=== PATIENT | female | born 1960 | race African-American/Black ===

== ENCOUNTER 2017-04-04 21:26 | Emergency (ER) | payer BC ==
[~2017-04-04 21:26] MED LIST: ALBU.63PRN INH; ALLO300T2 PO; CALC0.5C6 PO; DRIS50002 PO; ECOT81TA2 PO; FOLI1TAB PO; FURO20 PO; GABA300C3 PO; HYDR200T3 PO; IMDU30TA PO; LOSA100T PO; METH2.5 PO; METO100T PO; NEUR600T PO; NOVONP2 SQ; NOVORP2 SQ; OMEP20TA PO; PROC90TA PO; VENTAER INH; ZOCO80TA PO
[2017-04-04 21:30] VITALS: BP 187/77; PULSE 105; RESP 20; TEMP 97.7; O2SAT 97
[2017-04-04] MEDS ORDERED: methylPREDNISolone SOD SUCC 125 MG/2 ML VIAL IVP ONE (22:30)
[2017-04-04] MEDS ORDERED: SODIUM CHLORIDE 0.9% FLUSH 10 ML FLUSH IVF PRN (22:30)
[2017-04-04] MEDS: RESP: ALBUTEROL 2.5 MG/IPRATROPIUM 0.5 MG NEB (SCH) INH ×2 (22:44→22:45)
--- NOTE | 2017-04-04 22:47 | RADRPT ---
EXAM DATE/TIME: 04/04/2017 22:38 [facility] COMPARISON: CHEST SINGLE AP, August 29, 2016, 17:47. INDICATIONS : Cough. MEDICAL HISTORY : None. SURGICAL HISTORY : None. ENCOUNTER: Initial ACUITY: 1 day PAIN SCORE: 0/10 LOCATION: Bilateral chest FINDINGS: Slight linear parenchymal opacity in the right middle lobe may be mild atelectasis. No evidence of ef fusion. Cardiac contours are stable. Thoracic skeleton is intact. CONCLUSION: Mild right middle lobe parenchymal opacity. Leo Ruano MD on April 04, 2017 at 22:44 Board Certified Radiologist. This report was verified electronically.
[2017-04-04 23:10] LABS: AUTOMATED NEUTROPHIL # 2.5 TH/MM3 (1.8-7.7); BASOPHIL % 1.3 % (0.0-2.0); EOSINOPHIL # 0.2 TH/MM3 (0-0.4); EOSINOPHIL % 6.1 % (0.0-4.0); HEMATOCRIT 28.3 % (35.0-46.0); HEMO FLAGS DIFF FINAL; LYMPH % 14.7 % (9.0-44.0); LYMPHOCYTE # 0.5 TH/MM3 (1.0-4.8); MEAN CELL VOLUME 90.2 FL (80.0-100.0); MEAN CORPUSCULAR HEMOGLOBIN 28.8 PG (27.0-34.0); MEAN CORPUSCULAR HGB CONC 31.9 % (32.0-36.0); MONO % 2.9 % (0.0-8.0); PLATELET COUNT 153 TH/MM3 (150-450); RED BLOOD COUNT 3.14 MIL/MM3 (4.00-5.30); RED CELL DISTRIBUTION WIDTH 20.3 % (11.6-17.2); WHITE BLOOD COUNT 3.3 TH/MM3 (4.0-11.0)
--- NOTE | 2017-04-04 23:13 | PD ---
HPI Chief Complaint: Respiratory Symptoms Time Seen by Provider: 23:09 Travel History International Travel<30 days: No Contact w/Intl Traveler<30days: No Traveled to known affect area: No History of Present Illness HPI 57-year-old black female presents to the department with a five-day history of cough, congestion, pleuritic chest wall pain, shortness of breath, wheezing, subjective fever and chills and general malaise. She states that she had gone to the urgent care yesterday and was given albuterol, Atrovent, Zithromax. She' s been using the medications without relief. She states that she still feels that there is mucus in her chest that is not being expectorated. She still feels short of breath. She has had some nausea and posttussive emesis. She denies any ear pain, sore throat, abdominal pain, dysuria, frequency, pedal edema. PFSH Past Medical History Narrative Medical SLE, rheumatoid arthritis, IDDM, end-stage renal disease stage IV, diabetes, hypertension, asthma Arthritis: Yes (RHEUMATOID ARTHRITIS) Asthma: Yes Autoimmune Disease: No Blood Disorders: No Heart Rhythm Problems: No Cancer: No Cardiac Catheterization: Yes (06/2013) Cardiovascular Problems: Yes High Cholesterol: No Chemotherapy: No Chest Pain: No Congestive Heart Failure: Yes COPD: No Diabetes: Yes Patient Takes Glucophage: No Diminished Hearing: No Endocrine: Yes Gastrointestinal Disorders: Yes (ACID REFLUX; CROHN'S DISEASE ) Glaucoma: No Genitourinary: Yes (CKD) Hepatitis: No Hiatal Hernia: No Hypertension: Yes Immune Disorder: Yes (LUPUS/RHEUMATOID ARTHRITIS ) Kidney Stones: No Musculoskeletal: Yes Neurologic: No Psychiatric: No Respiratory: Yes Integumentary: Yes (POPPED BLISTER ON LL ABD) Myocardial Infarction: No Radiation Therapy: No Renal Failure: Yes (CKD stage 4) Sleep Apnea: Yes (Uses a CPAP at home.) Thyroid Disease: No Tetanus Vaccination: < 5 Years Menopausal: Yes Past Surgical History Abdominal Surgery: No AICD: No Body Medical Devices: CLIP AFTER CARDIAC CATH; EMMIE BREAST MARKERS Cardiac Surgery: Yes Ear Surgery: No Endocrine Surgery: No Eye Surgery: No Genitourinary Surgery: No Gynecologic Surgery: Yes ( WEDGE RESECTION OVARY 1984 UTERINE SURGERY) Joint Replacement: No Neurologic Surgery: No Oral Surgery: No Pacemaker: No Thoracic Surgery: Yes (THORACENTSIS; BREAST EMMIE BX ) Other Surgery: Yes Social History Alcohol Use: No Tobacco Use: No Substance Use: No Allergies-Medications (Allergen,Severity, Reaction): Coded Allergies: No Known Allergies (Verified , 04/04/17) Reported Meds & Prescriptions Reported Meds & Active Scripts Active Review of Systems Except as stated in HPI: all other systems reviewed are Neg Physical Exam Narrative GENERAL: Well-developed, well-nourished in no acute distress. Nontoxic appearing. HEAD: Normocephalic, atraumatic. EYES: Pupils equal round and reactive. Extraocular motions intact. No scleral icterus. No injection or drainage. ENT: TMs clear without erythema. The external auditory canals clear. Nose: clear . Posterior pharynx is pink and moist. No tonsillar edema or exudate. Uvula midline. Airway patent. NECK: Trachea midline.Supple, nontender, moves head freely. No central bony tenderness or spasm. CARDIOVASCULAR: Regular rate and rhythm without murmurs, gallops, or rubs. RESPIRATORY: Decreased breath sounds. Scattered rhonchi with fine next 3 wheeze. No respiratory distress. GASTROINTESTINAL: Abdomen soft, non-tender, nondistended. No hepato-splenomegaly , or palpable masses. No guarding. EXTREMITIES: No clubbing, cyanosis,no joint tenderness, effusion, trace pedal edema noted. BACK: Nontender without deformity or crepitance. No flank tenderness. Data Data Last Documented VS Vital Signs Date Time Temp Pulse Resp B/P Pulse Ox O2 Delivery O2 Flow Rate FiO2 04/04/17 21:30 97.7 105 20 187/77 97 Room Air Orders Basic Metabolic Panel (Bmp) (04/04/17 22:24) Chest, Pa & Lat (04/04/17 22:24) Iv Access Insert/Monitor (04/04/17 22:24) Methylprednisolone So Succ Inj (Solumedr (04/04/17 22:30) Albuterol-Ipratropium Neb (Duoneb Neb) (04/04/17 22:30) Sodium Chloride 0.9% Flush (Ns Flush) (04/04/17 22:30) Complete Blood Count With Diff (04/04/17 22:24) Levofloxacin (Levaquin) (04/05/17 00:15) Labs Laboratory Tests Test 04/04/17 22:55 White Blood Count 3.3 TH/MM3 Red Blood Count 3.14 MIL/MM3 Hemoglobin 9.0 GM/DL Hematocrit 28.3 % Mean Corpuscular Volume 90.2 FL Mean Corpuscular Hemoglobin 28.8 PG Mean Corpuscular Hemoglobin 31.9 % Concent Red Cell Distribution Width 20.3 % Platelet Count 153 TH/MM3 Mean Platelet Volume 7.6 FL Neutrophils (%) (Auto) 75.0 % Lymphocytes (%) (Auto) 14.7 % Monocytes (%) (Auto) 2.9 % Eosinophils (%) (Auto) 6.1 % Basophils (%) (Auto) 1.3 % Neutrophils # (Auto) 2.5 TH/MM3 Lymphocytes # (Auto) 0.5 TH/MM3 Monocytes # (Auto) 0.1 TH/MM3 Eosinophils # (Auto) 0.2 TH/MM3 Basophils # (Auto) 0.0 TH/MM3 CBC Comment DIFF FINAL Differential Comment Sodium Level 137 MEQ/L Potassium Level 4.7 MEQ/L Chloride Level 107 MEQ/L Carbon Dioxide Level 21.5 MEQ/L Anion Gap 9 MEQ/L Blood Urea Nitrogen 25 MG/DL Creatinine 2.16 MG/DL Estimat Glomerular Filtration 28 ML/MIN Rate Random Glucose 102 MG/DL Calcium Level 9.4 MG/DL MDM Medical Decision Making Medical Screen Exam Complete: Yes Emergency Medical Condition: Yes Medical Record Reviewed: Yes Interpretation(s) CBC & BMP Diagram 04/04/17 22:55 Last 24 hours Impressions Chest X-Ray 04/04/17 1264 Signed Impressions: Service Date/Time: Tuesday, April 04, 2017 22:38 - CONCLUSION: Mild right middle lobe parenchymal opacity. Leo Ruano MD Differential Diagnosis MDM: High Differential diagnoses: Pneumonia, bronchitis, URI, asthma, RAD, legionnaire's disease, SARS, ARDS, influenza, bronchiolitis, RSV,PE,CHF Narrative Course Patient given Levaquin 500 mg by mouth. IV access is obtained. Patient's given Solu-Medrol 125 g IV, 2 DuoNeb's. CBC, chemistry and chest x-ray. There is a question on middle lobe infiltrate. Patient is currently taking Zithromax. We will add and Levaquin, prednisone and Mucinex. The patient is reexamined. She is feeling subjectively better. The patient has had her air movement. Wheezing is somewhat improved. Diagnosis Primary Impression: early right middle lobe pneumonia Patient Instructions: General Instructions Additional Instructions: Rest. Increase fluids. Continue Zithromax. Levaquin, prednisone and Mucinex. Continued use her inhalers. Recheck with your doctor in 48 hours. Return to the ER for any problems. Med/Other Pt SpecificInfo: Prescription(s) given Disposition: 01 DISCHARGE HOME Condition: Stable Franky Becerra April 04, 2017 23:12
[2017-04-04 23:37] LABS: BICARBONATE 21.5 MEQ/L (21.0-32.0); POTASSIUM 4.7 MEQ/L (3.5-5.1)
[2017-04-05] MEDS ORDERED: AFED30TA PO (00:08)
[2017-04-05] MEDS ORDERED: ALBU0.08 NEB (00:08)
[2017-04-05] MEDS ORDERED: METH5INJ IM (00:08)
[2017-04-05] MEDS ORDERED: FLUTI110I INH (00:08)
[2017-04-05] MEDS ORDERED: LOSA100T PO (00:08)
[2017-04-05] MEDS ORDERED: GABA300C5 PO (00:08)
[2017-04-05] MEDS ORDERED: [UNRECOGNIZED DRUG - CODE] PO (00:08)
[2017-04-05] MEDS ORDERED: FOLI1TAB4 PO (00:08)
[2017-04-05] MEDS ORDERED: CALC0.5C6 PO (00:08)
[2017-04-05] MEDS ORDERED: CYCL1TAB29 PO (00:08)
[2017-04-05] MEDS ORDERED: LEFL1TAB3 PO (00:08)
[2017-04-05] MEDS ORDERED: FLUT1SPR20 (00:08)
[2017-04-05] MEDS ORDERED: FURO40TA PO (00:08)
[2017-04-05] MEDS ORDERED: HYDR200T3 PO (00:08)
[2017-04-05] MEDS ORDERED: HYDR-3583 PO (00:08)
[2017-04-05] MEDS ORDERED: HUMALOG SQ ×3 (00:08)
[2017-04-05] MEDS ORDERED: BAYE2MIS (00:08)
[2017-04-05] MEDS ORDERED: SIMV80TA PO (00:09)
[2017-04-05] MEDS ORDERED: OMEP20TA PO (00:09)
[2017-04-05] MEDS ORDERED: ERGO1CAP10 PO (00:09)
[2017-04-05] MEDS ORDERED: NOVONP2 SQ (00:09)
[2017-04-05] MEDS ORDERED: VENTAER INH (00:09)
[2017-04-05] MEDS ORDERED: [UNRECOGNIZED DRUG - CODE] SQ (00:09)
[2017-04-05] MEDS ORDERED: PRED-503 PO (00:12)
[2017-04-05] MEDS ORDERED: LEVA250T PO (00:12)
[2017-04-05] MEDS ORDERED: GUAI1TAB3 PO (00:12)
[2017-04-05] MEDS ORDERED: LEVOFLOXACIN 500 MG TAB PO ONE (00:15)
== END 2017-04-05 01:10 | disposition home or self-care (01) ==
LOC: NEPK 21:26
DX: J18.9 Pneumonia, unspecified organism (principal); E11.9 Type 2 diabetes mellitus without complications; J45.909 Unspecified asthma, uncomplicated; I12.9 Hypertensive chronic kidney disease with stage 1 through stage 4 chronic kidney disease, or unspecified chronic kidney disease; I12.0 Hypertensive chronic kidney disease with stage 5 chronic kidney disease or end stage renal disease; N18.6 End stage renal disease; Z79.4 Long term (current) use of insulin; M06.9 Rheumatoid arthritis, unspecified; M32.9 Systemic lupus erythematosus, unspecified
CPT/HCPCS: 71020; 80048; 85025; 94640; 94664; 96374; 99283; J2930

== ENCOUNTER 2017-04-18 10:15 | Day surgery (SDC) | payer BC ==
[~2017-04-18 10:15] MED LIST changes: +AFED30TA PO; -ALBU.63PRN INH; +ALBU0.08 NEB; -ALLO300T2 PO; +BAYE2MIS; +CYCL1TAB29 PO; -DRIS50002 PO; -ECOT81TA2 PO; +ERGO1CAP10 PO; +FLUT1SPR20; +FLUTI110I INH; -FOLI1TAB PO; +FOLI1TAB4 PO; -FURO20 PO; +FURO40TA PO; -GABA300C3 PO; +GABA300C5 PO; +GUAI1TAB3 PO; +HUMALOG SQ; +HYDR-3583 PO; -IMDU30TA PO; +LEFL1TAB3 PO; +LEVA250T PO; -METH2.5 PO; +METH5INJ IM; -METO100T PO; -NEUR600T PO; -NOVORP2 SQ; +PRED-503 PO; -PROC90TA PO; +SIMV80TA PO; -ZOCO80TA PO; +[UNRECOGNIZED DRUG - CODE] PO; +[UNRECOGNIZED DRUG - CODE] SQ
[2017-04-18 10:35] VITALS: BP 151/77; PULSE 98; RESP 20; TEMP 98; O2SAT 100
[2017-04-18] MEDS ORDERED: SODIUM CHLORIDE 0.9% FLUSH 10 ML FLUSH IVF PRN ×2 (13:30)
--- NOTE | 2017-04-18 14:33 | RADRPT ---
EXAM DATE/TIME: 04/18/2017 12:11 [facility] COMPARISON: PICC LINE INSERTION,POWER W/FL&US, July 14, 2016, 13:22. INDICATIONS : Patient with anemia. MEDICAL HISTORY : 1.Chronic renal failure 2. Anemia 3. Arthritis 4. Asthma 5. Crohns 6. DM 7. Fibroid uterus 8. HTN 9. Lupus 10. PVD 11. CHF SURGICAL HISTORY : 1. Breast reduction 2.Heart cath 3. Endometral ablation ENCOUNTER: Initial ACUITY: > 1 year PAIN SCORE: 0/10 FLUORO TIME: 1.56 minutes IMAGE SERIES: 1 CONTRAST: 5 cc Visipaque (iodixanol) ACCESS: Right brachial vein DEVICE(S): 1.) 4 Portuguese single lumen 40 cm Xcela Power PICC PROCEDURE : 1. Ultrasound guidance for venous catheterization. 2. Fluoroscopic guidance. 3. Ultrasound & fluoroscopic guided central venous Power PICC line placement. The risks, benefits and alternatives to the procedure were explained and verbal and written consent w as obtained. The site was prepped in sterile fashion. Full sterile technique was used, including ca p, mask, sterile gloves and gown and a large sterile sheet. Hand hygiene and 2% chlorhexidine prep w as utilized per protocol for cutaneous antisepsis with appropriate dry time for site. The skin and s ubcutaneous tissues were infiltrated with local anesthetic solution. Under direct ultrasound guidance, a suitable vein was accessed and a measuring guidewire was introduc ed and positioned in the central venous system. The ultrasound images depicting access guidance were saved and stored to PACS for permanent record. A Power Injectable PICC line was cut to prescribed length and introduced, positioned with tip at the cavoatrial junction level. The line was flushed and secured per protocol. CONCLUSION: 1. Uncomplicated PICC line placement. Davis Muhammad MD on April 18, 2017 at 14:31 Board Certified Radiologist. This report was verified electronically.
[2017-04-19] MEDS ORDERED: SODIUM CHLORIDE 0.9% FLUSH 10 ML FLUSH IVF SCH (09:00)
== END 2017-04-18 14:05 | disposition home or self-care (01) ==
LOC: HROP 10:15 → HRIP 10:21 → HROP 14:05
PROVIDERS: ATTEND Internal Medicine Hematology & Oncology
DX: D64.9 Anemia, unspecified (principal); N18.9 Chronic kidney disease, unspecified; I12.9 Hypertensive chronic kidney disease with stage 1 through stage 4 chronic kidney disease, or unspecified chronic kidney disease; J45.909 Unspecified asthma, uncomplicated; E11.9 Type 2 diabetes mellitus without complications; M32.9 Systemic lupus erythematosus, unspecified; I73.9 Peripheral vascular disease, unspecified; I50.9 Heart failure, unspecified; K50.90 Crohn's disease, unspecified, without complications
CPT/HCPCS: 36569; 76937; 77001; C1751; J1642

== ENCOUNTER 2017-05-03 14:32 | Inpatient (IN) | payer BC ==
[~2017-05-03] VITALS: Ht 162.6 cm; Wt 107.5 kg
[2017-05-03 14:33] VITALS: BP 132/70; PULSE 126; RESP 20; TEMP 97.9; O2SAT 98
--- NOTE | 2017-05-03 14:57 | PD ---
Physical Exam Time Seen by Provider: 14:54 Narrative 57yo F sent by PCP for hypotension in office 98/64. Pt also c/o diarrhea since the weekend. C/o low grade fever. Denies vomiting, abd pain. Patient seen in triage. VS reviewed. Awaiting bed placement. Data Data Last Documented VS Vital Signs Date Time Temp Pulse Resp B/P Pulse Ox O2 Delivery O2 Flow Rate FiO2 05/03/17 14:33 97.9 126 20 132/70 98 Room Air MDM Supervised Visit with VINEET: Tonie Zhang May 03, 2017 14:57
[2017-05-03] MEDS ORDERED: SODIUM CHLOR 0.9% 1000 ML INJ 1,000 ML IV SCH (16:07)
[2017-05-03] MEDS ORDERED: ONDANSETRON HCL 4 MG/2 ML VIAL IVP ONE (16:15)
[2017-05-03] MEDS ORDERED: SODIUM CHLORIDE 0.9% FLUSH 10 ML FLUSH IV FLUSH PRN ×2 (16:15→20:45)
--- NOTE | 2017-05-03 16:18 | PD ---
HPI Chief Complaint: GI Complaint Time Seen by Provider: 16:12 Travel History International Travel<30 days: No Contact w/Intl Traveler<30days: No Traveled to known affect area: No History of Present Illness HPI 57-year-old female with history of CHF, DM, Crohn's disease, COPD, anemia, rheumatoid arthritis presents to the ED for evaluation of a 5 day history of low -grade fevers, nausea, watery diarrhea. Patient denies chest pain, shortness of breath, abdominal pain, melena, hematochezia, dysuria. She endorses recent history of antibiotic use, was treated outpatient for community-acquired pneumonia. She saw her PCP today who sent her to the ED. PFSH Past Medical History Arthritis: Yes (RHEUMATOID ARTHRITIS) Asthma: Yes Autoimmune Disease: No Blood Disorders: No Heart Rhythm Problems: No Cancer: No Cardiac Catheterization: Yes (06/2013) Cardiovascular Problems: Yes (CHF) High Cholesterol: No Chemotherapy: No Chest Pain: No Congestive Heart Failure: Yes COPD: No Diabetes: Yes Diminished Hearing: No Endocrine: Yes Gastrointestinal Disorders: Yes (ACID REFLUX; CROHN'S DISEASE ) Glaucoma: No Genitourinary: Yes (CKD) Hepatitis: No Hiatal Hernia: No Hypertension: Yes Immune Disorder: Yes (LUPUS/RHEUMATOID ARTHRITIS ) Kidney Stones: No Musculoskeletal: Yes Neurologic: No Psychiatric: No Respiratory: Yes Integumentary: Yes (POPPED BLISTER ON LL ABD) Myocardial Infarction: No Radiation Therapy: No Renal Failure: Yes (CKD stage 4) Sleep Apnea: Yes (Uses a CPAP at home.) Thyroid Disease: No ?: Not Menopausal: Yes Past Surgical History Abdominal Surgery: No AICD: No Body Medical Devices: CLIP AFTER CARDIAC CATH; EMMIE BREAST MARKERS Cardiac Surgery: Yes Ear Surgery: No Endocrine Surgery: No Eye Surgery: No Genitourinary Surgery: No Gynecologic Surgery: Yes ( WEDGE RESECTION OVARY 1984 UTERINE SURGERY) Joint Replacement: No Neurologic Surgery: No Oral Surgery: No Pacemaker: No Thoracic Surgery: Yes (THORACENTSIS; BREAST EMMIE BX ) Other Surgery: Yes Social History Alcohol Use: No Tobacco Use: No Substance Use: No Allergies-Medications (Allergen,Severity, Reaction): Coded Allergies: No Known Allergies (Verified , 04/04/17) Reported Meds & Prescriptions Reported Meds & Active Scripts Active Reported Novolin R Inj (Insulin Human Regular) 1,000 Unit/10 Ml Vial 24 Units SQ AC DINNER Novolin R Inj (Insulin Human Regular) 1,000 Unit/10 Ml Vial 34 Units SQ AC LUNCH Novolin R Inj (Insulin Human Regular) 1,000 Unit/10 Ml Vial 24 Units SQ AC BREAKFAST Folic Acid 1 Mg Tablet 1 Mg PO SUMOTUWETHSA Flonase Nasal [place] (Fluticasone Nasal [place]) 50 Mcg/Act [place] 1 Spr EACH NARE BID PRN Ergocalciferol 50,000 Unit Cap 50,000 Units PO Q7D ON FRIDAYS Ventolin Hfa 18 GM Inh (Albuterol Sulfate) 90 Mcg/Act Aer 2 Puff INH Q4-6H PRN Simvastatin 80 Mg Tab 80 Mg PO HS Procrit Inj (Epoetin Delta) 40,000 Unit/Ml Inj 40,000 Units SQ EVERY 2 WEEKS Omeprazole 20 Mg Tab 20 Mg PO DAILY Novolin N Inj (Insulin Human NPH) 100 Unit/Ml Inj 60 Unit SQ HS Methotrexate Inj 50 Mg/2 Ml Inj 25 Mg IM WEEKLY ON FRIDAYS Losartan (Losartan Potassium) 100 Mg Tab 100 Mg PO DAILY Leflunomide 20 Mg Tab 20 Mg PO DAILY Hydroxychloroquine (Hydroxychloroquine Sulfate) 200 Mg Tab 200 Mg PO BID Takw with food Hydrocodone-Acetaminophen 10-325 mg Tab 1 Tab PO Q6H PRN Gabapentin 300 Mg Cap 300 Mg PO TID Furosemide 40 Mg Tab 40 Mg PO DAILY Flovent Hfa 12 GM Inh (Fluticasone Propionate) 110 Mcg/Act Inh 2 Puff INH BID PRN Calcitriol 0.5 Mcg Cap 0.5 Mcg PO DAILY Albuterol Neb (Albuterol Sulfate) 2.5 Mg/3 Ml Neb 2.5 Mg NEB Q4HR NEB PRN Afeditab CR (Nifedipine) 60 Mg Tab 60 Mg PO DAILY IN THE MORNING Afeditab CR (Nifedipine) 30 Mg Tab 30 Mg PO HS PRN Review of Systems Except as stated in HPI: all other systems reviewed are Neg Physical Exam Narrative GENERAL: Well-nourished, well-developed obese black female in no acute distress. SKIN: Focused skin assessment warm/dry. Mucous membranes dry. HEAD: Normocephalic. EYES: No scleral icterus. No injection or drainage. NECK: Supple, trachea midline. No JVD or lymphadenopathy. CARDIOVASCULAR: Regular rate and rhythm without murmurs, gallops, or rubs. RESPIRATORY: Breath sounds clear and equal bilaterally. No accessory muscle use. GASTROINTESTINAL: Abdomen soft, non-tender, nondistended. Active bowel sounds MUSCULOSKELETAL: No cyanosis, or edema. BACK: Nontender without obvious deformity. No CVA tenderness. Data Data Last Documented VS Vital Signs Date Time Temp Pulse Resp B/P Pulse Ox O2 Delivery O2 Flow Rate FiO2 05/03/17 15:59 15 05/03/17 14:33 97.9 126 132/70 98 Room Air Orders Complete Blood Count With Diff (05/03/17 16:07) Comprehensive Metabolic Panel (05/03/17 16:07) Prothrombin Time / Inr (Pt) (05/03/17 16:07) Act Partial Throm Time (Ptt) (05/03/17 16:07) Urinalysis - C+S If Indicated (05/03/17 16:07) Iv Access Insert/Monitor (05/03/17 16:07) Ecg Monitoring (05/03/17 16:07) Oximetry (05/03/17 16:07) Ondansetron Inj (Zofran Inj) (05/03/17 16:15) Sodium Chlor 0.9% 1000 Ml Inj (Ns 1000 M (05/03/17 16:07) Sodium Chloride 0.9% Flush (Ns Flush) (05/03/17 16:15) Electrocardiogram (05/03/17 16:07) C Diff Toxin Pcr (05/03/17 16:07) Admit Order (Ed Use Only) (05/03/17 18:44) Labs Laboratory Tests Test 05/03/17 05/03/17 16:30 17:00 Stool C. difficile Toxin (PCR) NEGATIVE Stl C. difficile Toxin PRESUMPTIVE Epiderm 027 NEGATIVE White Blood Count 6.3 TH/MM3 Red Blood Count 3.45 MIL/MM3 Hemoglobin 10.5 GM/DL Hematocrit 31.9 % Mean Corpuscular Volume 92.7 FL Mean Corpuscular Hemoglobin 30.4 PG Mean Corpuscular Hemoglobin 32.8 % Concent Red Cell Distribution Width 20.0 % Platelet Count 117 TH/MM3 Mean Platelet Volume 8.3 FL Neutrophils (%) (Auto) % Lymphocytes (%) (Auto) % Monocytes (%) (Auto) % Eosinophils (%) (Auto) % Basophils (%) (Auto) % Neutrophils # (Auto) TH/MM3 Lymphocytes # (Auto) TH/MM3 Monocytes # (Auto) TH/MM3 Eosinophils # (Auto) TH/MM3 Basophils # (Auto) TH/MM3 CBC Comment AUTO DIFF Differential Total Cells 100 Counted Neutrophils % (Manual) 36 % Band Neutrophils % 19 % Lymphocytes % 31 % Monocytes % 10 % Eosinophils % 3 % Neutrophils # (Manual) 3.5 TH/MM3 Metamyelocytes 1 % Nucleated Red Blood Cells 1 /100 WBC Differential Comment FINAL DIFF MANUAL Platelet Estimate LOW Platelet Morphology Comment NORMAL Tear Drop Cells 1+ Prothrombin Time 10.9 SEC Prothromb Time International 1.0 RATIO Ratio Activated Partial 29.4 SEC Thromboplast Time Sodium Level 138 MEQ/L Potassium Level 4.3 MEQ/L Chloride Level 106 MEQ/L Carbon Dioxide Level 18.9 MEQ/L Anion Gap 13 MEQ/L Blood Urea Nitrogen 35 MG/DL Creatinine 4.47 MG/DL Estimat Glomerular Filtration 12 ML/MIN Rate Random Glucose 119 MG/DL Calcium Level 9.4 MG/DL Total Bilirubin 0.3 MG/DL Aspartate Amino Transf 34 U/L (AST/SGOT) Alanine Aminotransferase 27 U/L (ALT/SGPT) Alkaline Phosphatase 149 U/L Total Protein 8.5 GM/DL Albumin 4.0 GM/DL [facility] Medical Decision Making Medical Screen Exam Complete: Yes Emergency Medical Condition: Yes Differential Diagnosis clostridium difficile diarrhea versus dehydration versus electrolyte abnormality versus acute on chronic kidney disease versus anemia versus other Narrative Course 57-year-old female with history of CHF, DM, Crohn's disease, COPD, rheumatoid arthritis presents to the ED for evaluation of a 5 day history of low-grade fevers, nausea, watery diarrhea. Patient denies chest pain, shortness of breath , abdominal pain, melena, hematochezia, dysuria. She endorses recent history of antibiotic use, was treated outpatient for community-acquired pneumonia. Sent by her PCP. Physical exam reveals a dry-appearing obese black female in no acute distress. Abdominal exam is benign. Breath sounds clear and equal bilaterally. Patient was administered 1 L normal saline, 4 mg Zofran IV. Stool cultures were obtained. Temp 97.9, pulse 126, BP 132, respiratory rate 20, 98% on room air on presentation. CBC: WBC 6.3. Hemoglobin 10.5 CMP: BUN 35, creatinine 4.47 Coags: INR 1.0 UA: pending EKG: rate 117, sinus rhythm. NC interval 196, QRS 138, QTC 419. LBBB. Reviewed by Dr. Hickey Suspect c. difficile colitis. Patient's renal function worsened from baseline. Will admit to the medicine service for further evaluation and treatment. I spoke with Dr. Davies who agrees to accept the patient to the medicine service. Please see medicine notes for disposition. Karon Traylor May 03, 2017 16:18
[2017-05-03 17:46] LABS: HEMATOCRIT 31.9 % (35.0-46.0); MEAN CELL VOLUME 92.7 FL (80.0-100.0); MEAN CORPUSCULAR HEMOGLOBIN 30.4 PG (27.0-34.0); MEAN CORPUSCULAR HGB CONC 32.8 % (32.0-36.0); PLATELET COUNT 117 TH/MM3 (150-450); RED BLOOD COUNT 3.45 MIL/MM3 (4.00-5.30); WHITE BLOOD COUNT 6.3 TH/MM3 (4.0-11.0)
[2017-05-03 17:48] LABS: HEMO FLAGS AUTO DIFF
[2017-05-03 17:58] LABS: APTT (PATIENT) 29.4 SEC (24.3-30.1); PROTHROMBIN TIME - PATIENT 10.9 SEC (9.8-11.6)
[2017-05-03 18:05] LABS: ALKALINE PHOSPHATASE 149 U/L (45-117); TOTAL BILIRUBIN ADULT 0.3 MG/DL (0.2-1.0)
[2017-05-03 18:15] LABS: ALT (GPT) 27 U/L (10-53); ANION GAP 13 MEQ/L (5-15); AST (GOT) 34 U/L (15-37); BICARBONATE 18.9 MEQ/L (21.0-32.0); BLOOD UREA NITROGEN 35 MG/DL (7-18); CHLORIDE 106 MEQ/L (98-107); GLOMERULAR FILTRATION RATE 12 ML/MIN (>89); POTASSIUM 4.3 MEQ/L (3.5-5.1); SODIUM (NA) 138 MEQ/L (136-145)
--- NOTE | 2017-05-03 18:21 | PD ---
Physical Exam Narrative GENERAL: Well-nourished, well-developed patient. SKIN: Warm and dry. HEAD: Normocephalic and atraumatic. EYES: No injection or drainage. ENT: No nasal drainage noted. Dry mucous membranes NECK: Supple, trachea midline. CARDIOVASCULAR: Tachycardic rate RESPIRATORY: No increased effort. No accessory muscle use. NEUROLOGICAL: Awake and alert. Motor and sensory grossly within normal limits. Normal speech. Data Data Last Documented VS Vital Signs Date Time Temp Pulse Resp B/P Pulse Ox O2 Delivery O2 Flow Rate FiO2 05/03/17 15:59 15 05/03/17 14:33 97.9 126 132/70 98 Room Air Orders Complete Blood Count With Diff (05/03/17 16:07) Comprehensive Metabolic Panel (05/03/17 16:07) Prothrombin Time / Inr (Pt) (05/03/17 16:07) Act Partial Throm Time (Ptt) (05/03/17 16:07) Urinalysis - C+S If Indicated (05/03/17 16:07) Iv Access Insert/Monitor (05/03/17 16:07) Ecg Monitoring (05/03/17 16:07) Oximetry (05/03/17 16:07) Ondansetron Inj (Zofran Inj) (05/03/17 16:15) Sodium Chlor 0.9% 1000 Ml Inj (Ns 1000 M (05/03/17 16:07) Sodium Chloride 0.9% Flush (Ns Flush) (05/03/17 16:15) Electrocardiogram (05/03/17 16:07) C Diff Toxin Pcr (05/03/17 16:07) Admit Order (Ed Use Only) (05/03/17 18:44) Labs Laboratory Tests Test 05/03/17 05/03/17 16:30 17:00 Stool C. difficile Toxin (PCR) NEGATIVE Stl C. difficile Toxin PRESUMPTIVE Epiderm 027 NEGATIVE Prothrombin Time 10.9 SEC Prothromb Time International 1.0 RATIO Ratio Activated Partial 29.4 SEC Thromboplast Time Sodium Level 138 MEQ/L Potassium Level 4.3 MEQ/L Chloride Level 106 MEQ/L Carbon Dioxide Level 18.9 MEQ/L Anion Gap 13 MEQ/L Blood Urea Nitrogen 35 MG/DL Creatinine 4.47 MG/DL Estimat Glomerular Filtration 12 ML/MIN Rate Random Glucose 119 MG/DL Calcium Level 9.4 MG/DL Total Bilirubin 0.3 MG/DL Aspartate Amino Transf 34 U/L (AST/SGOT) Alanine Aminotransferase 27 U/L (ALT/SGPT) Alkaline Phosphatase 149 U/L Total Protein 8.5 GM/DL Albumin 4.0 GM/DL White Blood Count 6.3 TH/MM3 Red Blood Count 3.45 MIL/MM3 Hemoglobin 10.5 GM/DL Hematocrit 31.9 % Mean Corpuscular Volume 92.7 FL Mean Corpuscular Hemoglobin 30.4 PG Mean Corpuscular Hemoglobin 32.8 % Concent Red Cell Distribution Width 20.0 % Platelet Count 117 TH/MM3 Mean Platelet Volume 8.3 FL Neutrophils (%) (Auto) % Lymphocytes (%) (Auto) % Monocytes (%) (Auto) % Eosinophils (%) (Auto) % Basophils (%) (Auto) % Neutrophils # (Auto) TH/MM3 Lymphocytes # (Auto) TH/MM3 Monocytes # (Auto) TH/MM3 Eosinophils # (Auto) TH/MM3 Basophils # (Auto) TH/MM3 CBC Comment AUTO DIFF Differential Total Cells 100 Counted Neutrophils % (Manual) 36 % Band Neutrophils % 19 % Lymphocytes % 31 % Monocytes % 10 % Eosinophils % 3 % Neutrophils # (Manual) 3.5 TH/MM3 Metamyelocytes 1 % Nucleated Red Blood Cells 1 /100 WBC Differential Comment FINAL DIFF MANUAL Platelet Estimate LOW Platelet Morphology Comment NORMAL Tear Drop Cells 1+ MDM Supervised Visit with VINEET: Yes Interpretation(s) CBC & BMP Diagram 05/03/17 17:00 Narrative Course I, Dr. chavez, have reviewed the advance practice practitioner's documentation and am in agreement, met with the patient face to face, made the diagnosis, and the medical decision making was done by me. *My assessment and Findings: 57-year-old female presents with diarrhea and signs of dehydration with recent antibiotics. C. difficile will be checked and she'll be given Flagyl. Patient will be admitted to the hospital given worsening of her renal function for IV fluid hydration. Diagnosis Primary Impression: Acute on chronic renal failure Qualified Code: N17.9 - Acute renal failure superimposed on chronic kidney disease, unspecified CKD stage, unspecified acute renal failure type Additional Impression: Diarrhea Qualified Code: R19.7 - Diarrhea, unspecified type Anyi Chavez MD May 03, 2017 18:21
[2017-05-03] MEDS ORDERED: FLUT1SPR5 EACH NARE (18:51)
[2017-05-03] MEDS ORDERED: ERGO1CAP30 PO (18:51)
[2017-05-03] MEDS ORDERED: FOLI1TAB6 PO (18:53)
[2017-05-03] MEDS ORDERED: NOVORP2 SQ ×3 (18:58)
[2017-05-03 19:02] LABS: C. DIFF EPI 027 PRESUMPTIVE NEGATIVE (NEGATIVE); C. DIFF TOXIN PCR NEGATIVE (NEGATIVE)
[2017-05-03 19:51] LABS: BANDS 19 % (0-6); CORRECTED NUCLEATED RBC 1 /100 WBC (0-0); EOSINOPHILS 3 % (0-4); METAMYELOCYTES 1 % (0-1); NEUTROPHIL # MANUAL DIFF 3.5 TH/MM3 (1.8-7.7); POLYS (SEG NEUTROPHILS) 36 % (16-70); WBC DIFF SAMPLE 100
[2017-05-03 19:53] LABS: PLATELET ESTIMATE SMEAR LOW (NORMAL); PLATELET MORPHOLOGY NORMAL (NORMAL); SCAN/DIFF FINAL DIFF MANUAL; TEARDROP RBCS 1+ (NORMAL)
[2017-05-03 20:09] VITALS: RESP 20; O2SAT 97
[2017-05-03] MEDS ORDERED: NALOXONE HCL 0.4 MG/ML AMP IV PRN (20:45)
[2017-05-03] MEDS ORDERED: ONDANSETRON HCL 4 MG/2 ML VIAL IVP PRN (20:45)
[2017-05-03] MEDS ORDERED: ACETAMINOPHEN 325 MG TAB PO PRN (20:45)
[2017-05-03 21:04] VITALS: BP 148/74; PULSE 110; RESP 20; O2SAT 97
[2017-05-03] MEDS ORDERED: LOPERAMIDE HCL 2 MG CAP PO ONE (21:45)
[2017-05-03] MEDS: SODIUM CHLOR 0.9% 1000 ML INJ 1,000 ML IV SCH (21:46)
[2017-05-03] MEDS: SODIUM CHLORIDE 0.9% FLUSH 10 ML FLUSH IV FLUSH SCH (21:47)
[2017-05-03] MEDS: HEPARIN SODIUM - SQ 10,000 UNITS/ML VIAL SQ SCH (21:47)
--- NOTE | 2017-05-03 21:51 | HHI.HP ---
[facility] Service [facility] Primary Care Physician Natan Booth MD Admission Diagnosis acute renal failure Diagnoses: Chief Complaint: Diarrhea 5 days Travel History International Travel<30 Days: No Contact w/Intl Traveler <30 Da: No Traveled to Known Affected Are: No History of Present Illness Written by Mariia Wallace, acting as scribe for Dr. Davies on 05/03/17 at 21: 49. The pleasant 57-year-old female patient with past medical history which includes chronic anemia being followed by Dr. Beltrán, , lupus, Crohn's diagnosed in 2002 no longer on medication, arthritis, asthma, chronic kidney disease stage III at baseline, diabetes mellitus, fibroid uterus, hemorrhoids, hypercholesterolemia, hypertension, peripheral vascular disease, congestive heart failure diagnosed 1998- last echocardiogram 08/2016 showed ejection fraction 45-50%. Patient was recently treated for pneumonia on 2016 treated with by mouth Levaquin. Patient presents to ER today with complaints of liquid diarrhea multiple episodes per day for the past 5 days. Patient has associated abdominal discomfort which she describes as a bubbling, "low-grade fevers," nausea but no vomiting. Patient reports the diarrhea is foul smelling. Patient denies black tarry stools or bright red blood in stool. Patient is unsure if there is mucus present or not. Of note patient has had C. difficile in the past 2001. PCR C. difficile negative today Laboratory data reviewed BUN 35 creatinine 4.47 estimated GFR 12, and review of prior medical records patient's baseline creatinine is around 2 and GFR usually in the 20s Review of Systems Except as stated in HPI: all other systems reviewed are Neg Past Family Social History Past Medical History chronic anemia being followed by Dr. Beltrán, , lupus, Crohn's diagnosed in 2002 no longer on medication, arthritis, asthma, chronic kidney disease stage III at baseline, diabetes mellitus, fibroid uterus, hemorrhoids, hypercholesterolemia, hypertension, peripheral vascular disease, congestive heart failure diagnosed 1998 last echocardiogram August 2016 showed EF 45-50%. Past Surgical History Uterine ablation, breast reduction, cardiac catheterization 2012 with one- vessel disease per patient this was not, "bad enough to need stent," ovarian cyst removed Reported Medications Novolin R Inj (Insulin Human Regular) 1,000 Unit/10 Ml Vial 24 Units SQ AC DINNER Novolin R Inj (Insulin Human Regular) 1,000 Unit/10 Ml Vial 34 Units SQ AC LUNCH Novolin R Inj (Insulin Human Regular) 1,000 Unit/10 Ml Vial 24 Units SQ AC BREAKFAST Folic Acid 1 Mg Tablet 1 Mg PO SUMOTUWETHSA Flonase Nasal [place] (Fluticasone Nasal [place]) 50 Mcg/Act [place] 1 Spr EACH NARE BID PRN Ergocalciferol 50,000 Unit Cap 50,000 Units PO Q7D ON FRIDAYS Ventolin Hfa 18 GM Inh (Albuterol Sulfate) 90 Mcg/Act Aer 2 Puff INH Q4-6H PRN Simvastatin 80 Mg Tab 80 Mg PO HS Procrit Inj (Epoetin Delta) 40,000 Unit/Ml Inj 40,000 Units SQ EVERY 2 WEEKS Omeprazole 20 Mg Tab 20 Mg PO DAILY Novolin N Inj (Insulin Human NPH) 100 Unit/Ml Inj 60 Unit SQ HS Methotrexate Inj 50 Mg/2 Ml Inj 25 Mg IM WEEKLY ON FRIDAYS Losartan (Losartan Potassium) 100 Mg Tab 100 Mg PO DAILY Leflunomide 20 Mg Tab 20 Mg PO DAILY Hydroxychloroquine (Hydroxychloroquine Sulfate) 200 Mg Tab 200 Mg PO BID Takw with food Hydrocodone-Acetaminophen 10-325 mg Tab 1 Tab PO Q6H PRN Gabapentin 300 Mg Cap 300 Mg PO TID Furosemide 40 Mg Tab 40 Mg PO DAILY Flovent Hfa 12 GM Inh (Fluticasone Propionate) 110 Mcg/Act Inh 2 Puff INH BID PRN Calcitriol 0.5 Mcg Cap 0.5 Mcg PO DAILY Albuterol Neb (Albuterol Sulfate) 2.5 Mg/3 Ml Neb 2.5 Mg NEB Q4HR NEB PRN Afeditab CR (Nifedipine) 60 Mg Tab 60 Mg PO DAILY IN THE MORNING Afeditab CR (Nifedipine) 30 Mg Tab 30 Mg PO HS PRN Allergies: Coded Allergies: No Known Allergies (Verified , 04/04/17) Active Ordered Medications Current Medications Medications (Trade) Dose Ordered Sig/Ubaldo Route Start Time Stop Time Status Last Admin Lactobacillus Acidophilus 1 tab 1 tab TID PO 05/04/17 09:00 (NS 1000 ml Inj) 1,000 ml @ 75 mls/hr [id number] IV 05/03/17 20:45 05/03/17 21:46 (NS Flush) 2 ml UNSCH PRN IV FLUSH 05/03/17 20:45 (NS Flush) 2 ml BID IV FLUSH 05/03/17 21:00 05/03/17 21:47 (Tylenol) 650 mg Q4H PRN PO 05/03/17 20:45 (Zofran Inj) 4 mg Q6H PRN IVP 05/03/17 20:45 (Heparin Inj) 5,000 units Q8H SQ 05/03/17 21:00 05/03/17 21:47 (Narcan Inj) 0.4 mg UNSCH PRN IV 05/03/17 20:45 Family History Mother and father are both alive in their 80s mother has hypertension, father has diabetes and hypertension Social History Patient reports she has a lifelong nonsmoker and nondrinker denies illicit drug use as well Physical Exam Vital Signs Vital Signs Date Time Temp Pulse Resp B/P Pulse Ox O2 Delivery O2 Flow Rate FiO2 05/03/17 21:04 110 20 148/74 97 Room Air 05/03/17 20:09 20 97 Room Air 05/03/17 15:59 15 05/03/17 14:33 97.9 126 20 132/70 98 Room Air Physical Exam GENERAL: This is a well-nourished, well-developed patient, appears fatigued SKIN: No rashes, ecchymoses or lesions. Cool and dry.- Patient with dry oral mucosa and mucous membranes HEAD: Atraumatic. Normocephalic. No temporal or scalp tenderness. EYES: Extraocular motions intact. No scleral icterus. No injection or drainage. CARDIOVASCULAR: Regular rate and rhythm without murmurs, gallops, or rubs. RESPIRATORY: Clear to auscultation. Breath sounds equal bilaterally. No wheezes , rales, or rhonchi. GASTROINTESTINAL: Abdomen obese soft, non-tender, nondistended. No guarding. Positive bowel sounds all 4 quadrants MUSCULOSKELETAL: Extremities without clubbing, cyanosis, or edema. No joint tenderness, effusion, or edema noted. No calf tenderness. Negative Homans sign bilaterally. NEUROLOGICAL: Awake and alert. No focal deficits appreciated. Motor and sensory grossly within normal limits. Five out of 5 muscle strength in all muscle groups. Normal speech. Laboratory Laboratory Tests Test 05/03/17 05/03/17 16:30 17:00 Stool C. difficile Toxin (PCR) NEGATIVE Stl C. difficile Toxin PRESUMPTIVE Epiderm 027 NEGATIVE White Blood Count 6.3 Red Blood Count 3.45 Hemoglobin 10.5 Hematocrit 31.9 Mean Corpuscular Volume 92.7 Mean Corpuscular Hemoglobin 30.4 Mean Corpuscular Hemoglobin 32.8 Concent Red Cell Distribution Width 20.0 Platelet Count 117 Mean Platelet Volume 8.3 Neutrophils (%) (Auto) Lymphocytes (%) (Auto) Monocytes (%) (Auto) Eosinophils (%) (Auto) Basophils (%) (Auto) Neutrophils # (Auto) Lymphocytes # (Auto) Monocytes # (Auto) Eosinophils # (Auto) Basophils # (Auto) CBC Comment AUTO DIFF Differential Total Cells 100 Counted Neutrophils % (Manual) 36 Band Neutrophils % 19 Lymphocytes % 31 Monocytes % 10 Eosinophils % 3 Neutrophils # (Manual) 3.5 Metamyelocytes 1 Nucleated Red Blood Cells 1 Differential Comment FINAL DIFF MANUAL Platelet Estimate LOW Platelet Morphology Comment NORMAL Tear Drop Cells 1+ Prothrombin Time 10.9 Prothromb Time International 1.0 Ratio Activated Partial 29.4 Thromboplast Time Sodium Level 138 Potassium Level 4.3 Chloride Level 106 Carbon Dioxide Level 18.9 Anion Gap 13 Blood Urea Nitrogen 35 Creatinine 4.47 Estimat Glomerular Filtration 12 Rate Random Glucose 119 Calcium Level 9.4 Total Bilirubin 0.3 Aspartate Amino Transf 34 (AST/SGOT) Alanine Aminotransferase 27 (ALT/SGPT) Alkaline Phosphatase 149 Total Protein 8.5 Albumin 4.0 Result Diagram: 05/03/17 1700 05/03/17 1700 Assessment and Plan Problem List: (1) Acute renal failure ICD Code: N17.9 Status: Acute (2) Diarrhea ICD Code: R19.7 Status: Acute Assessment and Plan The pleasant 57-year-old female patient with past medical history which includes chronic anemia being followed by Dr. Beltrán, lupus, Crohn's diagnosed in 2002 no longer on medication, arthritis, asthma, chronic kidney disease stage III at baseline, diabetes mellitus, fibroid uterus, hemorrhoids, hypercholesterolemia, hypertension, peripheral vascular disease, congestive heart failure diagnosed 1998. Patient was recently treated for pneumonia on 04/04/2017 treated with by mouth Levaquin. Patient presents to ER today with complaints of liquid diarrhea multiple episodes per day for the past 5 days. Of note patient has had C. difficile in the past 2001. PCR C. difficile negative today Laboratory data reviewed BUN 35 creatinine 4.47 estimated GFR 12, and review of prior medical records patient's baseline creatinine is around 2 and GFR usually in the 20s Acute kidney injury on chronic kidney disease- likely secondary to dehydration from frequent diarrhea Creatinine, Protein creatinine ratio, sodium- random urine, Urine for eosinophil US kidney/renal/bladder gentle IV hydration as patient has a history of CHF Avoid nephrotoxins Hold losartan, gabapentin and Lasix Recheck in a.m. Diarrhea unknown etiology C. difficile negative Start Imodium Stool for ovum, parasites, white blood cell Diabetes mellitus Accu-Cheks before meals at bedtime with sliding scale insulin coverage Other chronic stable medical conditions include hypercholesterolemia, hypertension, peripheral vascular disease- continue home medications as indicated DVT prophylaxis with heparin subcutaneous Discussed with ER provider, nursing and patient Physician Certification 2 Midnight Certification Type: Admission for Inpatient Services Order for Inpatient Services The services are ordered in accordance with Medicare regulations or non- Medicare payer requirements, as applicable. In the case of services not specified as inpatient-only, they are appropriately provided as inpatient services in accordance with the 2-midnight benchmark. Estimated LOS (days): 3 days is the estimated time the patient will need to remain in the hospital, assuming treatment plan goals are met and no additional complications. Post-Hospital Plan: Home Problem Qualifiers (1) Diarrhea: Qualified Code: R19.7 - Diarrhea, unspecified type Mariia Wallaec May 03, 2017 21:51
[2017-05-03 23:04] VITALS: BP 138/75; PULSE 109; RESP 20; TEMP 97.5; O2SAT 99
--- NOTE | 2017-05-04 00:30 | RADRPT ---
EXAM DATE/TIME: 05/03/2017 22:48 [facility] COMPARISON: MRI ABDOMEN W/O CONTRAST, May 29, 2015, 10:04. CT ABDOMEN W/O CONTRAST, May 27, 2015, 20:17. US K IDNEY/RENAL/BLADDER, May 27, 2015, 9:46. INDICATIONS : Acute kidney injury. MEDICAL HISTORY : Chronic obstructive pulmonary disease. Congestive heart failure. Hypertension. Sleep apnea. Chron's d isease. renal failure. rheumatoid arthritis. diabetes. anemia. lupus. blood transfusion. c.diff. SURGICAL HISTORY : Cardiac catheterization. Thoracentesis. Bilateral breast biopsy. Wedge resection to ovary. Uterine gracia rgery. ENCOUNTER: Subsequent ACUITY: 1 day PAIN SCORE: 0/10 LOCATION: Bilateral flank MEASUREMENTS: RIGHT KIDNEY: 10.3 x 5.2 x 5.2 cm LEFT KIDNEY: 11.2 x 4.8 x 4.8 cm FINDINGS: RIGHT KIDNEY: Renal cortex is normal in thickness and echotexture. No hydronephrosis, stone, or mass. LEFT KIDNEY: Renal cortex is normal in thickness and echotexture. No hydronephrosis, stone, or mass. There again is a prominent hypoechoic area measuring 3.0 x 2.4 x 2.9 cm which was previously investigated as a so lid mass but was a normal dromedary hump in 2015. BLADDER: Within normal limits given the degree of distension. CONCLUSION: Stable examination. Prominent hypoechoic area mid pole left kidney stable since 2014. It was investig ated previously was felt to be a dromedary hump. Lester Baker MD on May 04, 2017 at 0:28 Board Certified Radiologist. This report was verified electronically.
[2017-05-04] MEDS ORDERED: NIFEdipine 30 MG SUSTAINED RELEASE TAB PO PRN (02:45)
[2017-05-04] MEDS ORDERED: ALBUTEROL SULFATE 90 MCG/ACT HFA 8 GM INHALER INH PRN (02:45)
[2017-05-04] MEDS ORDERED: RESP: ALBUTEROL 2.5 MG/3 ML NEB (PRN) NEB (02:45)
[2017-05-04 04:00] VITALS: BP 116/53; PULSE 106; RESP 20; TEMP 97.8; O2SAT 98
[2017-05-04] MEDS: FOLIC ACID 1 MG TAB PO SCH (04:19)
[2017-05-04] MEDS: HEPARIN SODIUM - SQ 10,000 UNITS/ML VIAL SQ SCH ×3 (04:20→20:35)
[2017-05-04 05:14] LABS: HEMATOCRIT 25.4 % (35.0-46.0); MEAN CELL VOLUME 92.8 FL (80.0-100.0); MEAN CORPUSCULAR HEMOGLOBIN 30.9 PG (27.0-34.0); MEAN CORPUSCULAR HGB CONC 33.3 % (32.0-36.0); PLATELET COUNT 94 TH/MM3 (150-450); RED BLOOD COUNT 2.73 MIL/MM3 (4.00-5.30); RED CELL DISTRIBUTION WIDTH 20.7 % (11.6-17.2); WHITE BLOOD COUNT 5.3 TH/MM3 (4.0-11.0)
[2017-05-04 05:28] LABS: HEMO FLAGS AUTO DIFF
[2017-05-04 05:41] LABS: BICARBONATE 16.9 MEQ/L (21.0-32.0); POTASSIUM 4.1 MEQ/L (3.5-5.1)
[2017-05-04 07:02] LABS: BANDS 24 % (0-6); EOSINOPHILS 6 % (0-4); NEUTROPHIL # MANUAL DIFF 2.9 TH/MM3 (1.8-7.7); PLATELET ESTIMATE SMEAR LOW (NORMAL); PLATELET MORPHOLOGY NORMAL (NORMAL); POLYS (SEG NEUTROPHILS) 31 % (16-70); SCAN/DIFF FINAL DIFF MANUAL; SPHEROCYTES OCC (NORMAL); WBC DIFF SAMPLE 100
[2017-05-04 07:14] LABS: BACTERIA, URINE MANY /hpf; BLOOD, URINE TRACE (NEG); COMMENT (UR) CULTURE INDICATED; CULTURE IF INDICATED CULTURE INDICATED; GLUCOSE,URINE NEG (NEG); HYALINE CAST, URINE 25 /lpf (RARE); KETONE, URINE NEG (NEG); MUCUS URINE FEW /lpf (OCC); NITRITE,URINE NEG (NEG); PH, URINE 5.5 (5.0-8.5); SQUAMOUS EPITHELIAL CELL URINE 15 /hpf (0-5); URINE COLOR YELLOW (YELLW/STRAW)
[2017-05-04 08:00] VITALS: BP 139/68; PULSE 104; RESP 17; TEMP 97.6; O2SAT 97
[2017-05-04] MEDS: SODIUM CHLORIDE 0.9% FLUSH 10 ML FLUSH IV FLUSH SCH ×2 (09:00→20:36)
[2017-05-04] MEDS: PANTOPRAZOLE SOD 20 MG DELAYED RELEASE TAB PO SCH (10:14)
[2017-05-04] MEDS: LACTOBACILLUS ACIDOPHILUS TAB PO SCH ×3 (10:14→17:13)
[2017-05-04] MEDS: SODIUM CHLOR 0.9% 1000 ML INJ 1,000 ML IV SCH ×2 (10:16→17:15)
[2017-05-04] MEDS: HYDROXYCHLOROQUINE SULFATE 200 MG TAB PO SCH ×2 (10:23→20:35)
[2017-05-04] MEDS: LEFLUNOMIDE 20 MG TAB PO SCH (10:23)
[2017-05-04 12:00] VITALS: BP 130/63; PULSE 104; RESP 17; TEMP 97.9; O2SAT 96
--- NOTE | 2017-05-04 15:35 | EKG ---
Date Performed: 05/03/2017 Time Performed: 15:58:23 PTAGE: 57 years EKG: SINUS TACHYCARDIA LEFT ATRIAL ENLARGEMENT LEFT BUNDLE BRANCH BLOCK ABNORMAL ECG INTERPRETAT ION BASED ON A DEFAULT AGE OF 40 YEARS SINCE PRIOR TRACING HEART RATE HAS INCREASED PREVIOUS TRACING : 08/30/2016 05.50 DOCTOR: Janes Diaz Interpretating Date/Time 05/04/2017 15:34:10
[2017-05-04 16:00] VITALS: BP 134/80; PULSE 108; RESP 18; TEMP 98.3; O2SAT 97
--- NOTE | 2017-05-04 18:02 | HHI.PR ---
Subjective Remarks Pt tells me that her n/v has completely resolved and she is hungry and would like to advance her diet. she had 2 loose stools today however they were more formed. no chest pain or SOB Objective Vitals Vital Signs Date Time Temp Pulse Resp B/P Pulse Ox O2 Delivery O2 Flow Rate FiO2 05/04/17 16:00 98.3 108 18 134/80 97 05/04/17 12:00 97.9 104 17 130/63 96 05/04/17 08:00 97.6 104 17 139/68 97 05/04/17 04:00 97.8 106 20 116/53 98 05/03/17 23:04 97.5 109 20 138/75 99 05/03/17 21:04 110 20 148/74 97 Room Air 05/03/17 20:09 20 97 Room Air I/O 05/03/17 05/03/17 05/03/17 05/04/17 05/04/17 05/04/17 07:00 15:00 23:00 07:00 15:00 23:00 Intake Total 895 ml 1200 ml Output Total 250 ml Balance 645 ml 1200 ml Intake Oral 480 ml 1200 ml IV Total 415 ml Output Urine Total 250 ml # Voids 0 2 # Bowel Movements 2 2 Result Diagram: 05/04/17 0428 05/04/17 0428 Imaging Last Impressions Renal Ultrasound 05/03/17 0000 Signed Impressions: Service Date/Time: Wednesday, May 03, 2017 22:48 - CONCLUSION: Stable examination. Prominent hypoechoic area mid pole left kidney stable since 2014. It was investigated previously was felt to be a dromedary hump. Lester Baker MD Objective Remarks GENERAL: This is a well-nourished, well-developed patient, appears comfortable. CARDIOVASCULAR: Regular rate and rhythm without murmurs. RESPIRATORY: Clear to auscultation. Breath sounds equal bilaterally. No wheezes. GASTROINTESTINAL: Abdomen obese soft, non-tender, nondistended. No guarding. Positive bowel sounds all 4 quadrants MUSCULOSKELETAL: Extremities without edema. NEUROLOGICAL: Awake and alert. No focal deficits appreciated. Motor and sensory grossly within normal limits. Normal speech. A/P Problem List: (1) Acute renal failure ICD Code: N17.9 Status: Acute (2) Diarrhea ICD Code: R19.7 Status: Acute Assessment and Plan The pleasant 57-year-old female patient with past medical history which includes chronic anemia being followed by Dr. Beltrán, lupus, Crohn's diagnosed in 2002 no longer on medication, arthritis, asthma, chronic kidney disease stage III at baseline, diabetes mellitus, fibroid uterus, hemorrhoids, hypercholesterolemia, hypertension, peripheral vascular disease, congestive heart failure diagnosed 1998. Patient was recently treated for pneumonia on 04/04/2017 treated with by mouth Levaquin. Patient presents to ER today with complaints of liquid diarrhea multiple episodes per day for the past 5 days. Of note patient has had C. difficile in the past 2001. PCR C. difficile negative on admission Laboratory data reviewed BUN 35 creatinine 4.47 estimated GFR 12, and review of prior medical records patient's baseline creatinine is around 2 and GFR usually in the 20s Acute kidney injury on chronic kidney disease- likely secondary to dehydration from frequent diarrhea urine Creatinine, Protein creatinine ratio elevated, random urine sodium normal, no Urine for eosinophil US kidney/renal/bladder, stable decrease NS to 42ml/hr as patient has a history of CHF. Cr trending down. Avoid nephrotoxins Hold losartan, gabapentin and Lasix Recheck BMP in a.m. Diarrhea unknown etiology C. difficile negative on Imodium, diarrhea improving Stool studies thus far neg. continue to monitor. Diabetes mellitus Accu-Cheks before meals at bedtime with sliding scale insulin coverage u/a concerning for a UTI, urine cx pending. pt appears asymptomatic, monitor off abx to not exacerbate diarrhea. if symptoms, treat. f/u cultures. Other chronic stable medical conditions include hypercholesterolemia, hypertension, peripheral vascular disease- continue home medications as indicated DVT prophylaxis with heparin subcutaneous Discharge Planning monitor Cr. anticipate discharge in 1-2 days advance diet to ADA/heart healthy Problem Qualifiers (1) Diarrhea: Qualified Code: R19.7 - Diarrhea, unspecified type Hiwot Cole MD May 04, 2017 18:02
[2017-05-04 20:00] VITALS: BP 141/75; PULSE 100; RESP 17; TEMP 98.1; O2SAT 98
[2017-05-04] MEDS: PRAVASTATIN SOD 80 MG TAB PO SCH (20:35)
[2017-05-05] VITALS (8 sets, daily range): BP systolic 127–160; BP diastolic 64–75; PULSE 42–112; RESP 17–23; TEMP 97.7–98.6; O2SAT 95–100
[2017-05-05] MEDS ORDERED: ATROPINE SULFATE 1 MG/ML VIAL IV PUSH PRN (03:45)
[2017-05-05 04:35] LABS: BICARBONATE 15.8 MEQ/L (21.0-32.0); MAGNESIUM 1.4 MG/DL (1.5-2.5); POTASSIUM 4.5 MEQ/L (3.5-5.1)
[2017-05-05] MEDS: HEPARIN SODIUM - SQ 10,000 UNITS/ML VIAL SQ SCH ×3 (05:17→22:25)
[2017-05-05] MEDS: MAGNESIUM SULFATE 1 GM PREMIX 100 ML IV SCH ×2 (05:17→06:40)
[2017-05-05] MEDS: LACTOBACILLUS ACIDOPHILUS TAB PO SCH ×3 (08:46→17:23)
[2017-05-05] MEDS: PANTOPRAZOLE SOD 20 MG DELAYED RELEASE TAB PO SCH (08:46)
[2017-05-05] MEDS: HYDROXYCHLOROQUINE SULFATE 200 MG TAB PO SCH ×2 (08:46→22:32)
[2017-05-05] MEDS: LEFLUNOMIDE 20 MG TAB PO SCH (08:46)
[2017-05-05] MEDS: SODIUM CHLORIDE 0.9% FLUSH 10 ML FLUSH IV FLUSH SCH ×2 (08:47→22:24)
--- NOTE | 2017-05-05 17:02 | PQ ---
Physician Query Response Document PATIENT: NOHELIA PRASAD : 1960 ADMIT DATE: 05/03/2017 6:45 PM DISCH DATE: RESPONDING PROVIDER #: rleger QUERY TEXT: CHF Acuity and Type Congestive Heart Failure is documented in the Medical Record. Please document the TYPE and ACUITY (in cludes probable or suspected) Such as: Type: -- Systolic -- Diastolic -- Combined -- Other, please specify Acuity: -- Acute -- Chronic -- Acute on chronic -- Other, please specify Also please document the underlying cause of the CHF (includes probable or suspected) The patient's Clinical Indicators include: Echocardiograph report from 08/30/16 : "...Systikuc function was mildly reduced. The estimated eject ion fraction was in the range of 45% to 50%. History and physical dated 05/03/17: congestive heart failure diagnosed 1998- last echocardiogram 2015 showed ejection fraction 45-50%. ...gentle IV hydration as patient has a history of CHF Query created by: Judie Jara on 05/05/2017 3:50 PM RESPONSE TEXT: Systolic-chronic Electronically signed by: Hiwot Cole MD 05/05/2017 4:58 PM
--- NOTE | 2017-05-05 17:29 | EKG ---
Date Performed: 05/05/2017 Time Performed: 04:10:38 PTAGE: 57 years EKG: Sinus tachycardia with 1st degree A-V block Possible right atrial abnormality Left bundle b ranch block Low QRS voltages in precordial leads Abnormal ECG PREVIOUS TRACING : 05/03/2017 15.58 Compared to prior tracing no significant change DOCTOR: Vinnie Welch Interpretating Date/Time 05/05/2017 17:28:43
--- NOTE | 2017-05-05 18:00 | HHI.PR ---
Subjective Remarks Patient seen earlier today. Denies any chest pain, shortness of breath, palpitations. She states overnight she did have some palpitations which resolved. She never had chest pain. She never had lightheadedness or dizziness. Objective Vitals Vital Signs Date Time Temp Pulse Resp B/P Pulse Ox O2 Delivery O2 Flow Rate FiO2 05/05/17 08:00 97.7 98 18 144/70 100 05/05/17 05:17 108 05/05/17 04:00 98.3 42 17 128/64 99 05/05/17 00:00 97.8 81 17 127/71 98 05/04/17 20:00 98.1 100 17 141/75 98 I/O 05/04/17 05/04/17 05/04/17 05/05/17 05/05/17 05/05/17 07:00 15:00 23:00 07:00 15:00 23:00 Intake Total 895 ml 1200 ml 883 ml 676 ml Output Total 250 ml Balance 645 ml 1200 ml 883 ml 676 ml Intake Oral 480 ml 1200 ml 240 ml 240 ml IV Total 415 ml 643 ml 436 ml Output Urine Total 250 ml # Voids 0 2 1 3 # Bowel Movements 2 2 Result Diagram: 05/04/17 0428 05/05/17 0404 Imaging Last Impressions Renal Ultrasound 05/03/17 0000 Signed Impressions: Service Date/Time: Wednesday, May 03, 2017 22:48 - CONCLUSION: Stable examination. Prominent hypoechoic area mid pole left kidney stable since 2014. It was investigated previously was felt to be a dromedary hump. Lester Baker MD Objective Remarks GENERAL: This is a well-nourished, well-developed patient, appears comfortable. CARDIOVASCULAR: Regular rate and rhythm without murmurs. RESPIRATORY: Clear to auscultation. Breath sounds equal bilaterally. No wheezes. GASTROINTESTINAL: Abdomen obese soft, non-tender, nondistended. No guarding. MUSCULOSKELETAL: Extremities without edema. NEUROLOGICAL: Awake and alert. No focal deficits appreciated.Normal speech. A/P Problem List: (1) Acute renal failure ICD Code: N17.9 Status: Acute (2) Diarrhea ICD Code: R19.7 Status: Acute Assessment and Plan The pleasant 57-year-old female patient with past medical history which includes chronic anemia being followed by Dr. Beltrán, lupus, Crohn's diagnosed in 2002 no longer on medication, arthritis, asthma, chronic kidney disease stage III at baseline, diabetes mellitus, fibroid uterus, hemorrhoids, hypercholesterolemia, hypertension, peripheral vascular disease, congestive heart failure diagnosed 1998. Patient was recently treated for pneumonia on 04/04/2017 treated with by mouth Levaquin. Patient presents to ER today with complaints of liquid diarrhea multiple episodes per day for the past 5 days. Of note patient has had C. difficile in the past 2001. PCR C. difficile negative on admission Laboratory data reviewed BUN 35 creatinine 4.47 estimated GFR 12, and review of prior medical records patient's baseline creatinine is around 2 and GFR usually in the 20s Acute kidney injury on chronic kidney disease- likely secondary to dehydration from frequent diarrhea urine Creatinine, Protein creatinine ratio elevated, random urine sodium normal, no Urine for eosinophil US kidney/renal/bladder, stable NS to 42ml/hr as patient has a history of systolic CHF. Cr trending down but still elevated at 3.09. Continue gentle hydration Avoid nephrotoxins Hold losartan, gabapentin and Lasix Recheck BMP in a.m. Diarrhea unknown etiology C. difficile negative on Imodium, diarrhea improving Stool studies thus far neg. continue to monitor. Diabetes mellitus Accu-Cheks before meals at bedtime with sliding scale insulin coverage u/a concerning for a UTI, urine cx negative. Patient has been asymptomatic. Other chronic stable medical conditions include hypercholesterolemia, hypertension, peripheral vascular disease- continue home medications as indicated DVT prophylaxis with heparin subcutaneous Discharge Planning monitor Cr which is trending down. anticipate discharge in 1-2 days Problem Qualifiers (1) Diarrhea: Qualified Code: R19.7 - Diarrhea, unspecified type Hiwot Cole MD May 05, 2017 18:00
[2017-05-05] MEDS: CALCITRIOL 0.25 MCG CAP PO SCH (18:49)
[2017-05-05] MEDS ORDERED: METHOTREXATE SOD PF 50 MG/2 ML VIAL IM SCH (20:00)
[2017-05-05] MEDS ORDERED: ERGOCALCIFEROL (VIT D2) 50,000 UNIT CAP PO SCH (20:00)
[2017-05-05] MEDS ORDERED: METHOTREXATE IM SCH (21:00)
[2017-05-05] MEDS: PRAVASTATIN SOD 80 MG TAB PO SCH (22:24)
[2017-05-05] MEDS: SODIUM CHLOR 0.9% 1000 ML INJ 1,000 ML IV SCH (22:33)
[2017-05-05] MEDS: FOLIC ACID 1 MG TAB PO SCH (22:34)
[2017-05-06] VITALS (8 sets, daily range): BP systolic 129–192; BP diastolic 70–89; PULSE 92–104; RESP 15–20; TEMP 96.8–98.5; O2SAT 96–100
[2017-05-06] MEDS: HEPARIN SODIUM - SQ 10,000 UNITS/ML VIAL SQ SCH ×3 (04:33→21:03)
[2017-05-06 07:04] LABS: BICARBONATE 16.3 MEQ/L (21.0-32.0); POTASSIUM 4.2 MEQ/L (3.5-5.1)
[2017-05-06] MEDS: SODIUM CHLORIDE 0.9% FLUSH 10 ML FLUSH IV FLUSH SCH ×2 (08:45→21:00)
[2017-05-06] MEDS: LACTOBACILLUS ACIDOPHILUS TAB PO SCH ×3 (08:45→17:32)
[2017-05-06] MEDS: CALCITRIOL 0.25 MCG CAP PO SCH (08:45)
[2017-05-06] MEDS: HYDROXYCHLOROQUINE SULFATE 200 MG TAB PO SCH ×2 (08:45→21:02)
[2017-05-06] MEDS: PANTOPRAZOLE SOD 20 MG DELAYED RELEASE TAB PO SCH (08:45)
[2017-05-06] MEDS: LEFLUNOMIDE 20 MG TAB PO SCH (08:45)
--- NOTE | 2017-05-06 10:51 | HHI.PR ---
Subjective Remarks Follow-up acute on chronic kidney disease/gastroenteritis 05/06/17-patient seen and examined, renal indices improving. Denies any diarrhea. Appetite increasing. patient now reports itching bilateral eyes with discharge. Afebrile Objective Vitals Vital Signs Date Time Temp Pulse Resp B/P Pulse Ox O2 Delivery O2 Flow Rate FiO2 05/06/17 08:00 98.5 104 15 152/85 99 05/06/17 04:00 96.8 96 17 163/75 97 05/06/17 00:00 98.2 100 17 129/70 96 05/05/17 20:00 98.6 103 18 146/72 95 05/05/17 20:00 98 05/05/17 16:00 97.9 106 20 160/75 96 05/05/17 12:00 98.4 99 23 146/69 98 I/O 05/05/17 05/05/17 05/05/17 05/06/17 05/06/17 05/06/17 07:00 15:00 23:00 07:00 15:00 23:00 Intake Total 676 ml 720 ml 240 ml 240 ml Balance 676 ml 720 ml 240 ml 240 ml Intake Oral 240 ml 720 ml 240 ml 240 ml IV Total 436 ml # Voids 3 2 2 2 # Bowel Movements 0 Result Diagram: 05/04/17 0428 05/06/17 0552 Imaging Last Impressions Renal Ultrasound 05/03/17 0000 Signed Impressions: Service Date/Time: Wednesday, May 03, 2017 22:48 - CONCLUSION: Stable examination. Prominent hypoechoic area mid pole left kidney stable since 2014. It was investigated previously was felt to be a dromedary hump. Lester Baker MD Objective Remarks GENERAL: NAD SKIN: Warm and dry. HEAD: Normocephalic. EYES: No scleral icterus. + injection or drainage. NECK: Supple, trachea midline. No JVD or lymphadenopathy. CARDIOVASCULAR: Regular rate and rhythm without murmurs, gallops, or rubs. RESPIRATORY: Breath sounds equal bilaterally. No accessory muscle use. GASTROINTESTINAL: Abdomen soft, non-tender, nondistended. MUSCULOSKELETAL: No cyanosis, or edema. BACK: Nontender without obvious deformity. No CVA tenderness. A/P Problem List: (1) Acute renal failure superimposed on stage 4 chronic kidney disease ICD Code: N17.9 Status: Acute (2) Acute renal failure ICD Code: N17.9 Status: Acute (3) Diarrhea ICD Code: R19.7 Status: Acute (4) Acute bacterial conjunctivitis of both eyes ICD Code: H10.33 Status: Acute (5) Systolic CHF, chronic ICD Code: I50.22 Status: Acute Assessment and Plan 57-year-old female with Acute kidney injury on chronic kidney disease stage IV- likely secondary to dehydration from frequent diarrhea urine Creatinine, Protein creatinine ratio elevated, random urine sodium normal, no Urine for eosinophil US kidney/renal/bladder, stable NS to 42ml/hr as patient has a history of systolic CHF. Cr trending down but still elevated at 2.30. Continue gentle hydration Avoid nephrotoxins Hold losartan, gabapentin and Lasix BMP in a.m. Acute bacterial conjunctivitis of both eyes Start erythromycin ophthalmic Diarrhea unknown etiology C. difficile negative on Imodium, diarrhea improved Stool studies thus far neg. continue to monitor. Diabetes mellitus Accu-Cheks before meals at bedtime with sliding scale insulin coverage u/a concerning for a UTI, urine cx negative. Patient has been asymptomatic. Other chronic stable medical conditions include hypercholesterolemia, hypertension, peripheral vascular disease- continue home medications as indicated DVT prophylaxis with heparin subcutaneous Problem Qualifiers (1) Diarrhea: Qualified Code: R19.7 - Diarrhea, unspecified type Elliott Foster MD May 06, 2017 10:51
[2017-05-06] MEDS: ERYTHROMYCIN 0.5% OPTH OINT 3.5 GM TUBO EACH EYE SCH ×3 (13:52→21:04)
[2017-05-06] MEDS: PRAVASTATIN SOD 80 MG TAB PO SCH (21:02)
[2017-05-06] MEDS: SODIUM CHLOR 0.9% 1000 ML INJ 1,000 ML IV SCH (23:02)
[2017-05-07] VITALS: BP 192/93; PULSE 93; RESP 18; TEMP 97; O2SAT 95
[2017-05-07 04:00] VITALS: BP 145/76; PULSE 91; RESP 16; TEMP 97.9; O2SAT 98
[2017-05-07] MEDS: FOLIC ACID 1 MG TAB PO SCH (04:49)
[2017-05-07] MEDS: ERYTHROMYCIN 0.5% OPTH OINT 3.5 GM TUBO EACH EYE SCH ×2 (05:38→12:01)
[2017-05-07] MEDS: HEPARIN SODIUM - SQ 10,000 UNITS/ML VIAL SQ SCH ×2 (05:38→12:01)
[2017-05-07 05:39] LABS: BICARBONATE 16.5 MEQ/L (21.0-32.0); POTASSIUM 4.4 MEQ/L (3.5-5.1)
[2017-05-07] MEDS: CALCITRIOL 0.25 MCG CAP PO SCH (07:51)
[2017-05-07] MEDS: PANTOPRAZOLE SOD 20 MG DELAYED RELEASE TAB PO SCH (07:51)
[2017-05-07] MEDS: HYDROXYCHLOROQUINE SULFATE 200 MG TAB PO SCH (07:51)
[2017-05-07] MEDS: LACTOBACILLUS ACIDOPHILUS TAB PO SCH ×2 (07:52→12:01)
[2017-05-07] MEDS: LEFLUNOMIDE 20 MG TAB PO SCH (07:52)
[2017-05-07] MEDS: SODIUM CHLORIDE 0.9% FLUSH 10 ML FLUSH IV FLUSH SCH (07:52)
[2017-05-07 08:00] VITALS: BP 148/88; PULSE 96; RESP 20; TEMP 98.6; O2SAT 98
[2017-05-07] MEDS ORDERED: DEXTROSE 50% IN WATER 50 ML VIAL(D50) IV PRN (11:30)
[2017-05-07] MEDS ORDERED: GLUCAGON 1 MG/ML VIAL OTHER PRN (11:30)
--- NOTE | 2017-05-07 11:32 | HHI.PR ---
Subjective Remarks Follow-up acute on chronic kidney disease/gastroenteritis 05/06/17-patient seen and examined, renal indices improving. Denies any diarrhea. Appetite increasing. patient now reports itching bilateral eyes with discharge. Afebrile 05/07/17-patient seen and examined, BP was up last night however patient denies any headaches. No bowel movement 2 days. Her blood glucose up Objective Vitals Vital Signs Date Time Temp Pulse Resp B/P Pulse Ox O2 Delivery O2 Flow Rate FiO2 05/07/17 08:00 98.6 96 20 148/88 98 05/07/17 04:00 97.9 91 16 145/76 98 05/07/17 00:00 97.0 93 18 192/93 95 05/06/17 20:52 96 05/06/17 20:00 97.9 94 16 192/85 96 05/06/17 16:00 97.6 93 15 158/89 100 05/06/17 12:00 98.1 93 20 158/78 96 I/O 05/06/17 05/06/17 05/06/17 05/07/17 05/07/17 05/07/17 07:00 15:00 23:00 07:00 15:00 23:00 Intake Total 240 ml 480 ml 1510 ml 570 ml Balance 240 ml 480 ml 1510 ml 570 ml Intake Oral 240 ml 480 ml 240 ml 240 ml IV Total 1270 ml 330 ml # Voids 2 3 2 4 # Bowel Movements 0 0 0 Result Diagram: 05/04/17 0428 05/07/17 0440 Imaging Last Impressions Renal Ultrasound 05/03/17 0000 Signed Impressions: Service Date/Time: Wednesday, May 03, 2017 22:48 - CONCLUSION: Stable examination. Prominent hypoechoic area mid pole left kidney stable since 2014. It was investigated previously was felt to be a dromedary hump. Lester Baker MD Objective Remarks GENERAL: NAD SKIN: Warm and dry. HEAD: Normocephalic. EYES: No scleral icterus. + injection or drainage. NECK: Supple, trachea midline. No JVD or lymphadenopathy. CARDIOVASCULAR: Regular rate and rhythm without murmurs, gallops, or rubs. RESPIRATORY: Breath sounds equal bilaterally. No accessory muscle use. GASTROINTESTINAL: Abdomen soft, non-tender, nondistended. MUSCULOSKELETAL: No cyanosis, or edema. BACK: Nontender without obvious deformity. No CVA tenderness. Procedures none A/P Problem List: (1) Acute renal failure superimposed on stage 4 chronic kidney disease ICD Code: N17.9 Status: Acute (2) Acute renal failure ICD Code: N17.9 Status: Acute (3) Diarrhea ICD Code: R19.7 Status: Resolved (4) Acute bacterial conjunctivitis of both eyes ICD Code: H10.33 Status: Acute (5) Systolic CHF, chronic ICD Code: I50.22 Status: Chronic Assessment and Plan 57-year-old female with Acute kidney injury on chronic kidney disease stage IV- likely secondary to dehydration from frequent diarrhea urine Creatinine, Protein creatinine ratio elevated, random urine sodium normal, no Urine for eosinophil US kidney/renal/bladder, stable NS to 42ml/hr as patient has a history of systolic CHF. Cr trending down 2.08. Continue gentle hydration Avoid nephrotoxins Hold losartan, gabapentin and Lasix Acute bacterial conjunctivitis of both eyes Continue erythromycin ophthalmic Diarrhea unknown etiology C. difficile negative on Imodium, diarrhea improved Stool studies thus far neg. continue to monitor. Diabetes mellitus Accu-Cheks before meals at bedtime with sliding scale insulin coverage u/a concerning for a UTI, urine cx negative. Patient has been asymptomatic. Other chronic stable medical conditions include hypercholesterolemia, hypertension, peripheral vascular disease- continue home medications as indicated Diabetic type II Resume Levemir HS and start ISS DVT prophylaxis with heparin subcutaneous Problem Qualifiers (1) Diarrhea: Qualified Code: R19.7 - Diarrhea, unspecified type Elliott Foster MD May 07, 2017 11:32
[2017-05-07] MEDS ORDERED: ERYTOIN10 EACH EYE (11:35)
--- NOTE | 2017-05-07 11:38 | HHI.DS ---
Discharge Summary Admission Date May 03, 2017 at 18:45 Discharge Date: May 07, 2017 Admitting Diagnosis acute renal failure (1) Acute renal failure superimposed on stage 4 chronic kidney disease ICD Code: N17.9 (2) Acute renal failure ICD Code: N17.9 (3) Diarrhea ICD Code: R19.7 (4) Acute bacterial conjunctivitis of both eyes ICD Code: H10.33 (5) Systolic CHF, chronic ICD Code: I50.22 Procedures none Brief History - From Admission Written by Mariia Wallace, acting as scribe for Dr. Davies on 05/03/17 at 21: 49. The pleasant 57-year-old female patient with past medical history which includes chronic anemia being followed by Dr. Beltrán, , lupus, Crohn's diagnosed in 2002 no longer on medication, arthritis, asthma, chronic kidney disease stage III at baseline, diabetes mellitus, fibroid uterus, hemorrhoids, hypercholesterolemia, hypertension, peripheral vascular disease, congestive heart failure diagnosed 1998- last echocardiogram 08/2016 showed ejection fraction 45-50%. Patient was recently treated for pneumonia on 2016 treated with by mouth Levaquin. Patient presents to ER today with complaints of liquid diarrhea multiple episodes per day for the past 5 days. Patient has associated abdominal discomfort which she describes as a bubbling, "low-grade fevers," nausea but no vomiting. Patient reports the diarrhea is foul smelling. Patient denies black tarry stools or bright red blood in stool. Patient is unsure if there is mucus present or not. Of note patient has had C. difficile in the past 2001. PCR C. difficile negative today Laboratory data reviewed BUN 35 creatinine 4.47 estimated GFR 12, and review of prior medical records patient's baseline creatinine is around 2 and GFR usually in the 20s CBC/BMP: 05/04/17 0428 05/07/17 0440 Significant Findings Laboratory Tests Test 05/05/17 05/06/17 05/07/17 04:04 05:52 04:40 Chloride Level 113 MEQ/L 113 MEQ/L 111 MEQ/L (98-107) (98-107) (98-107) Carbon Dioxide Level 15.8 MEQ/L 16.3 MEQ/L 16.5 MEQ/L (21.0-32.0) (21.0-32.0) (21.0-32.0) Blood Urea Nitrogen 29 MG/DL (7-18) 25 MG/DL (7-18) 26 MG/DL (7-18) Creatinine 3.09 MG/DL 2.30 MG/DL 2.08 MG/DL (0.50-1.00) (0.50-1.00) (0.50-1.00) Estimat Glomerular Filtration 19 ML/MIN (>89) 26 ML/MIN (>89) 29 ML/MIN (>89) Rate Random Glucose 128 MG/DL 118 MG/DL (74-106) (74-106) Calcium Level 8.3 MG/DL 8.4 MG/DL (8.5-10.1) (8.5-10.1) Magnesium Level 1.4 MG/DL (1.5-2.5) PE at Discharge GENERAL: NAD SKIN: Warm and dry. HEAD: Normocephalic. EYES: No scleral icterus. + injection or drainage. NECK: Supple, trachea midline. No JVD or lymphadenopathy. CARDIOVASCULAR: Regular rate and rhythm without murmurs, gallops, or rubs. RESPIRATORY: Breath sounds equal bilaterally. No accessory muscle use. GASTROINTESTINAL: Abdomen soft, non-tender, nondistended. MUSCULOSKELETAL: No cyanosis, or edema. BACK: Nontender without obvious deformity. No CVA tenderness. Hospital Course Patient was treated for acute on chronic kidney disease stage IV with gentle IV fluid hydration with monitoring BUN and creatinine. Then 2 diarrhea episode C. difficile was ruled out and she responded well to antidiarrhea motility agents. She was started on erythromycin eyedrops secondary to bilateral conjunctivitis. She was continued on this treatment for other chronic medical conditions. DVT and GI prophylaxis were provided. Prior to discharge, patient' s condition improved Pt Condition on Discharge: Stable Discharge Disposition: Discharge Home Discharge Time: > 30 minutes Discharge Instructions DIET: Follow Instructions for: Diabetic Diet Activities you can perform: Regular-No Restrictions Follow up Referrals: PCP Follow-up - 1 Week New Orders: BASIC METABOLIC PROF - 3-5 Days New Medications: Erythromycin Opth Oint (Erythromycin Opth Oint) 5 Mg/Gm Oint 1 APPLIC EACH EYE Q6HR Infection #1 TUBE Continued Medications: Albuterol 18 GM Inh (Ventolin Hfa 18 GM Inh) 90 Mcg/Act Aer 2 PUFF INH Q4-6H PRN SHORTNESS OF BREATH #1 Ref 0 INHALER Albuterol Neb (Albuterol Neb) 2.5 Mg/3 Ml Neb 2.5 MG NEB Q4HR NEB PRN SHORTNESS OF BREATH #60 Ref 0 NEBULE Calcitriol (Calcitriol) 0.5 Mcg Cap 0.5 MCG PO DAILY Calcium Supplement #30 Ref 0 CAP Epoetin Inj (Procrit Inj) 40,000 Unit/Ml Inj 36054 UNITS SQ EVERY 2 WEEKS Anemia #12 Ref 0 VIAL Ergocalciferol (Ergocalciferol) 50,000 Unit Cap 35597 UNITS PO Q7D ON FRIDAYS Nutritional Supplement #30 Ref 0 CAP Fluticasone 12 GM Inh (Flovent Hfa 12 GM Inh) 110 Mcg/Act Inh 2 PUFF INH BID PRN SHORTNESS OF BREATH #1 Ref 0 INHALER Fluticasone Nasal [place] (Flonase Nasal [place]) 50 Mcg/Act [place] 1 SPR EACH NARE BID PRN ALLERGIES #1 Ref 0 BOTTLE Folic Acid (Folic Acid) 1 Mg Tablet 1 MG PO SuMoTuWeThSa Furosemide (Furosemide) 40 Mg Tab 40 MG PO DAILY #30 Ref 0 TAB Hydroxychloroquine (Hydroxychloroquine) 200 Mg Tab 200 MG PO BID Takw with food #60 Ref 0 TAB Insulin Human NPH Inj (Novolin N Inj) 100 Unit/Ml Inj 60 UNIT SQ HS Leflunomide (Leflunomide) 20 Mg Tab 20 MG PO DAILY TAB Losartan (Losartan) 100 Mg Tab 100 MG PO DAILY Blood Pressure Management #30 Ref 0 TAB Methotrexate Inj (Methotrexate Inj) 50 Mg/2 Ml Inj 25 MG IM WEEKLY ON FRIDAYS Nifedipine ER 24 HR (Afeditab CR) 60 Mg Tab 60 MG PO DAILY IN THE MORNING #30 Ref 0 TAB Omeprazole (Omeprazole) 20 Mg Tab 20 MG PO DAILY #30 Ref 0 TAB Simvastatin (Simvastatin) 80 Mg Tab 80 MG PO HS Cholesterol Management #30 Ref 0 TAB Discontinued Medications: Hydrocodone-Acetaminophen (Hydrocodone-Acetaminophen) 10-325 mg Tab 1 TAB PO Q6H PRN PAIN Ref 0 TAB Elliott Foster MD May 07, 2017 11:38
[2017-05-07] MEDS ORDERED: INSULIN ASPART SUPPLEMENTAL SCALE SQ SCH (16:00)
== END 2017-05-07 14:57 | disposition home or self-care (01) | DRG 683 ==
LOC: NEPC 14:32 → NEDA 18:45 → N07A 21:55
PROVIDERS: ADMIT Hospitalist; ATTEND Hospitalist
DX: N17.9 Acute kidney failure, unspecified (principal); I13.0 Hypertensive heart and chronic kidney disease with heart failure and stage 1 through stage 4 chronic kidney disease, or unspecified chronic kidney disease; I50.22 Chronic systolic (congestive) heart failure; E11.22 Type 2 diabetes mellitus with diabetic chronic kidney disease; Z68.41 Body mass index [BMI] 40.0-44.9, adult; N18.4 Chronic kidney disease, stage 4 (severe); I73.9 Peripheral vascular disease, unspecified; E78.00 Pure hypercholesterolemia, unspecified; E86.0 Dehydration; G47.30 Sleep apnea, unspecified; I44.7 Left bundle-branch block, unspecified; J44.9 Chronic obstructive pulmonary disease, unspecified; K21.9 Gastro-esophageal reflux disease without esophagitis; M06.9 Rheumatoid arthritis, unspecified; H10.89 Other conjunctivitis; E66.9 Obesity, unspecified
CPT/HCPCS: 76775; 80048; 80053; 81001; 82570; 82948; 83735; 84156; 84300; 85007; 85027; 85610; 85730; 87086; 87205; 87328; 87329; 87493; 87506; 93005; 96361; 96374; J1644; J1815; J2405; J3475; J7030; J9250

== ENCOUNTER 2017-06-29 07:56 | Day surgery (SDC) | payer BC ==
[~2017-06-29] VITALS: Ht 163.8 cm; Wt 113.6 kg
[2017-06-29] VITALS (7 sets, daily range): BP systolic 142–163; BP diastolic 68–88; PULSE 70–79; RESP 16–20; TEMP 97–97.6; O2SAT 95–100
[~2017-06-29 07:56] MED LIST changes: -BAYE2MIS; -CYCL1TAB29 PO; -ERGO1CAP10 PO; +ERGO1CAP30 PO; +ERYTOIN10 EACH EYE; -FLUT1SPR20; +FLUT1SPR5 EACH NARE; -FOLI1TAB4 PO; +FOLI1TAB6 PO; -GUAI1TAB3 PO; -HUMALOG SQ; -HYDR-3583 PO; -LEVA250T PO; +NOVORP2 SQ; -PRED-503 PO
[2017-06-29] MEDS ORDERED: SODIUM CHLOR 0.9% 1000 ML IV SCH (08:30)
[2017-06-29] MEDS ORDERED: HYDR-3583 PO (08:33)
[2017-06-29] MEDS ORDERED: IPRA0.02 NEB (08:33)
[2017-06-29] MEDS ORDERED: LIDOCAINE 1%/EPINEPHrine 1:100,000 SOLN 20 ML VIAL ONE (08:50)
[2017-06-29 08:58] LABS: BASOPHIL # 0.1 TH/MM3 (0-0.2); BASOPHIL % 0.6 % (0.0-2.0); EOSINOPHIL # 0.4 TH/MM3 (0-0.4); EOSINOPHIL % 4.2 % (0.0-4.0); HEMATOCRIT 31.2 % (35.0-46.0); HEMO FLAGS DIFF FINAL; LYMPH % 11.9 % (9.0-44.0); LYMPHOCYTE # 1.1 TH/MM3 (1.0-4.8); MEAN CELL VOLUME 92.8 FL (80.0-100.0); MEAN CORPUSCULAR HGB CONC 33.4 % (32.0-36.0); MONO % 8.9 % (0.0-8.0); NEUT % 74.4 % (16.0-70.0); PLATELET COUNT 193 TH/MM3 (150-450); RED BLOOD COUNT 3.36 MIL/MM3 (4.00-5.30); RED CELL DISTRIBUTION WIDTH 17.7 % (11.6-17.2); WHITE BLOOD COUNT 9.4 TH/MM3 (4.0-11.0)
[2017-06-29 09:42] LABS: APTT (PATIENT) 27.6 SEC (24.3-30.1); PROTHROMBIN TIME - PATIENT 11.1 SEC (9.8-11.6)
[2017-06-29 09:53] LABS: BICARBONATE 20.5 MEQ/L (21.0-32.0); POTASSIUM 4.5 MEQ/L (3.5-5.1)
[2017-06-29] MEDS ORDERED: fentaNYL CITRATE 250 MCG/5 ML AMP ONE (11:01)
[2017-06-29] MEDS ORDERED: MIDAZOLAM HCL 2 MG/2 ML VIAL ONE (11:01)
--- NOTE | 2017-06-29 11:44 | PD.RAD ---
Post CT Procedure Prog Note Pre Procedure Diagnosis: (1) CKD (chronic kidney disease) stage 3, GFR 30-59 ml/min (2) Acute renal failure (3) Acute on chronic renal failure Post Procedure Diagnosis: (1) Chronic kidney disease, stage 4, severely decreased GFR Procedure Date: Jun 29, 2017 Supervising Radiologist: Leo Ng Estimated blood loss: 5cc Anesthesia: Conscious Sedation Plan of Activity Patient to Unit: [facility] Patient Condition: Good See PACS Report for procedural detail/treatment Biopsy Side: Left Biopsy Procedure: Bone Marrow Site: left posterior iliac bone. Specimen: Core Biopsy Plan to [facility] for 2 hours then discharge. Leo Ng MD Jun 29, 2017 11:44
[2017-06-29 12:30] LABS: BONE MARROW PROCESSING COMPLETE; IRON STAIN DONE; JENNER GIEMSA STAIN DONE
--- NOTE | 2017-06-29 14:06 | RADRPT ---
EXAM DATE/TIME: 06/29/2017 11:10 [facility] COMPARISON: No previous studies available for comparison. INDICATIONS : Anemia. SEDATION TIME: 25 minutes BIOPSY SITE: Left iliac MEDICATION(S): 1.) 2 mg midazolam (Versed) IV 2.) 250 mcg fentanyl (Sublimaze) IV DEVICE(S): 1.) 11 gauge Bone marrow biopsy needle MEDICAL HISTORY : Hypertension. Chronic kidney disease, Lupus, anemia SURGICAL HISTORY : None. ENCOUNTER: Initial ACUITY: 1 day PAIN SCORE: 0/10 LOCATION: Left pelvis A total of one core specimen(s) were obtained and sent to the laboratory for pathologic evaluation. PROCEDURE: 1. CT guided bone marrow biopsy. 2. Conscious sedation with continuous EKG and oximetry monitoring. Prior to the procedure informed consent was obtained. Any appropriate prior imaging studies were rev iewed. Using automated exposure control and adjustment of the mA and/or kV according to patient size , radiation dose was kept as low as reasonably achievable to obtain optimal diagnostic quality images . DICOM format image data is available electronically for review and comparison. The site was prepped in a sterile fashion. Full sterile technique was used, including cap, mask, tigist rile gloves and gown and a large sterile sheet. Hand hygiene and 2% chlorhexidine and/or betadine/al cohol prep was utilized per protocol for cutaneous antisepsis. The skin and subcutaneous tissues wer e infiltrated with local anesthetic solution. With CT guidance the previously identified target was localized. Biopsy was performed using the presc ribed needle as above. Following biopsy marrow aspiration was performed with repeat puncture. [place] te hemostasis was obtained with compression at the puncture site. Conscious sedation was performed with the prescribed dosages and duration as above in the presence of an independent trained radiology nurse to assist in the monitoring of the patient. EKG and oximetry remained stable throughout the procedure. The patient tolerated the procedure well and there were no complications. The patient was sent to Radiology Outpatient Unit in stable condition. CONCLUSION: 1. Uncomplicated CT guided bone marrow aspirate. 2. Uncomplicated CT guided bone marrow biopsy. Leo Ng MD on June 29, 2017 at 14:05 Board Certified Radiologist. This report was verified electronically.
== END 2017-06-29 13:50 | disposition home or self-care (01) ==
LOC: HRAD 07:56 → HRIP 07:57 → HRAD 13:50
PROVIDERS: ATTEND Internal Medicine Hematology & Oncology
DX: N18.4 Chronic kidney disease, stage 4 (severe) (principal); N17.9 Acute kidney failure, unspecified; D64.9 Anemia, unspecified; R71.8 Other abnormality of red blood cells
CPT/HCPCS: 38221; 77012; 80048; 85025; 85097; 85610; 85730; 88184; 88185; 88237; 88264; 88280; 88305; 88311; 88313; 99152; 99153; C1830; G0364; J2250; J3010

== ENCOUNTER 2017-09-21 13:36 | Inpatient (IN) | payer BC ==
[2017-09-21] VITALS (10 sets, daily range): BP systolic 151–176; BP diastolic 62–96; PULSE 37–41; RESP 12–18; TEMP 97.1–98.2; O2SAT 95–100
[~2017-09-21] VITALS: Ht 165.1 cm; Wt 122.3 kg
[~2017-09-21 13:36] MED LIST changes: -ERYTOIN10 EACH EYE; -FOLI1TAB6 PO; +HYDR-3583 PO; +IPRA0.02 NEB; -METH5INJ IM
--- NOTE | 2017-09-21 14:20 | PD ---
HPI Chief Complaint: Cardiac Complaint Time Seen by Provider: 13:52 Travel History International Travel<30 days: No Contact w/Intl Traveler<30days: No Traveled to known affect area: No History of Present Illness HPI 57-year-old female complains of lightheadedness and shortness of breath. Patient states that the symptoms started this morning. Patient denies any chest pain. Patient denies any headache. Patient denies abdominal pain. Patient denies any focal weakness or numbness of extremity. Patient states that she has been eating well. Patient was seen in the office by her personal physician this morning and before the ED for evaluation. Patient had EKG done in the office this morning which shows heart block. Patient's guide cruise Dr. Goss was contacted by her primary physician prior to arrival. Patient has history of anemia, lupus, Crohn's disease, asthma, chronic kidney disease, diabetes, hyperlipidemia, hypertension, peripheral vascular disease, CHF. PFSH Past Medical History Arthritis: Yes (rheumatoid arthritis) Asthma: Yes Autoimmune Disease: Yes (lupus sle) Blood Disorders: No Heart Rhythm Problems: No Cancer: No Cardiac Catheterization: Yes (06/2013) Cardiovascular Problems: Yes (cardiac cath) High Cholesterol: No Chemotherapy: No Chest Pain: No Congestive Heart Failure: Yes COPD: No Diabetes: Yes Patient Takes Glucophage: No Diminished Hearing: No Endocrine: Yes Gastrointestinal Disorders: Yes (gerd) GERD: Yes Glaucoma: No Genitourinary: Yes Hepatitis: No Hiatal Hernia: No Hypertension: Yes Immune Disorder: Yes (lupus/rheumatoid arthritis) Kidney Stones: No Musculoskeletal: Yes Neurologic: No Psychiatric: No Reproductive: No Respiratory: Yes (copd) Integumentary: Yes (POPPED BLISTER ON LL ABD) Immunizations Current: Yes Myocardial Infarction: No Radiation Therapy: No Renal Failure: Yes (CKD stage 4) Sleep Apnea: Yes (cpap at home) Thyroid Disease: No Tetanus Vaccination: Never Vaccinated Influenza Vaccination: No Menopausal: Yes Past Surgical History Abdominal Surgery: No AICD: No Body Medical Devices: CLIP AFTER CARDIAC CATH; EMMIE BREAST MARKERS Cardiac Surgery: Yes (heart cath 2) Ear Surgery: No Endocrine Surgery: No Eye Surgery: No Genitourinary Surgery: No Gynecologic Surgery: Yes (breast reduction, wedge resection) Joint Replacement: No Neurologic Surgery: No Oral Surgery: No Pacemaker: No Thoracic Surgery: Yes (thoracentsis) Other Surgery: Yes Social History Alcohol Use: No Tobacco Use: No Substance Use: No Allergies-Medications (Allergen,Severity, Reaction): Coded Allergies: baclofen (Unverified Allergy, Severe, 09/21/17) Reported Meds & Prescriptions Reported Meds & Active Scripts Active Reported Hydralazine (Hydralazine HCl) 100 Mg Tab 50 Mg PO TID Take with meals Metoprolol Tartrate 100 Mg Tab 100 Mg PO BID Ipratropium Neb (Ipratropium Dellroy) 0.5 Mg/2.5 Ml Amp 0.5 Mg NEB Q4HR NEB PRN Hydrocodone-Acetaminophen 10-325 mg Tab 1 Tab PO Q6H PRN Novolin R Inj (Insulin Human Regular) 1,000 Unit/10 Ml Vial 24 Units SQ AC DINNER Novolin R Inj (Insulin Human Regular) 1,000 Unit/10 Ml Vial 34 Units SQ AC LUNCH Novolin R Inj (Insulin Human Regular) 1,000 Unit/10 Ml Vial 24 Units SQ AC BREAKFAST Flonase Nasal Stambaugh (Fluticasone Nasal Stambaugh) 50 Mcg/Act Stambaugh 1 Spr EACH NARE BID PRN Ergocalciferol 50,000 Unit Cap 50,000 Units PO Q7D ON FRIDAYS Ventolin Hfa 18 GM Inh (Albuterol Sulfate) 90 Mcg/Act Aer 2 Puff INH Q4-6H PRN Simvastatin 80 Mg Tab 80 Mg PO HS Procrit Inj (Epoetin Delta) 40,000 Unit/Ml Inj 40,000 Units SQ EVERY 2 WEEKS Omeprazole 20 Mg Tab 20 Mg PO DAILY Novolin N Inj (Insulin Human NPH) 100 Unit/Ml Inj 60 Unit SQ HS Losartan (Losartan Potassium) 100 Mg Tab 100 Mg PO DAILY Leflunomide 20 Mg Tab 20 Mg PO DAILY Hydroxychloroquine (Hydroxychloroquine Sulfate) 200 Mg Tab 200 Mg PO BID Takw with food Gabapentin 300 Mg Cap 300 Mg PO BID 1 IN AM AND 2 IN PM Furosemide 40 Mg Tab 40 Mg PO DAILY Flovent Hfa 12 GM Inh (Fluticasone Propionate) 110 Mcg/Act Inh 2 Puff INH BID PRN Calcitriol 0.5 Mcg Cap 0.5 Mcg PO DAILY Albuterol Neb (Albuterol Sulfate) 2.5 Mg/3 Ml Neb 2.5 Mg NEB Q4HR NEB PRN Afeditab CR (Nifedipine) 60 Mg Tab 60 Mg PO DAILY IN THE MORNING Afeditab CR (Nifedipine) 30 Mg Tab 30 Mg PO HS PRN Review of Systems General / Constitutional: No: Fever Eyes: No: Visual changes HENT: Positive: Lightheadedness, No: Headaches Cardiovascular: No: Chest Pain or Discomfort Respiratory: No: Shortness of Breath Gastrointestinal: No: Abdominal Pain Genitourinary: No: Dysuria Musculoskeletal: No: Pain Skin: No Rash Neurologic: No: Weakness Psychiatric: No: Depression Endocrine: No: Polydipsia Hematologic/Lymphatic: No: Easy Bruising Physical Exam Narrative GENERAL: Well-nourished, well-developed patient. SKIN: Focused skin assessment warm/dry. HEAD: Normocephalic. EYES: No scleral icterus. No injection or drainage. NECK: Supple, trachea midline. No JVD or lymphadenopathy. CARDIOVASCULAR: Bradycardia rate and rhythm without murmurs, gallops, or rubs. RESPIRATORY: Breath sounds equal bilaterally. No accessory muscle use. GASTROINTESTINAL: Abdomen soft, non-tender, nondistended. MUSCULOSKELETAL: No cyanosis, or edema. BACK: Nontender without obvious deformity. No CVA tenderness. Neurologic exam normal. Data Data Last Documented VS Vital Signs Date Time Temp Pulse Resp B/P (MAP) Pulse Ox O2 Delivery O2 Flow Rate FiO2 09/21/17 15:15 40 16 151/66 (94) 98 Room Air 09/21/17 13:38 98.2 Orders Orders Electrocardiogram (09/21/17 14:03) Complete Blood Count With Diff (09/21/17 14:03) Comprehensive Metabolic Panel (09/21/17 14:03) Creatine Kinase (Cpk) (09/21/17 14:03) Troponin I (09/21/17 14:03) B-Type Natriuretic Peptide (09/21/17 14:03) Prothrombin Time / Inr (Pt) (09/21/17 14:03) Act Partial Throm Time (Ptt) (09/21/17 14:03) Urinalysis - C+S If Indicated (09/21/17 14:03) Magnesium (Mg) (09/21/17 14:03) Thyroid Stimulating Hormone (09/21/17 14:03) Phosphorus (Po4) (09/21/17 14:03) Chest, Single Ap (09/21/17 14:03) Iv Access Insert/Monitor (09/21/17 14:03) Ecg Monitoring (09/21/17 14:03) Oxygen Administration (09/21/17 14:03) Oximetry (09/21/17 14:03) Sodium Chlor 0.9% 1000 Ml Inj (Ns 1000 M (09/21/17 14:15) CKMB (09/21/17 14:15) CKMB% (09/21/17 14:15) Labs Laboratory Tests Test 09/21/17 14:15 09/21/17 15:15 White Blood Count 5.9 TH/MM3 Red Blood Count 3.09 MIL/MM3 Hemoglobin 9.2 GM/DL Hematocrit 28.5 % Mean Corpuscular Volume 92.1 FL Mean Corpuscular Hemoglobin 29.8 PG Mean Corpuscular Hemoglobin Concent 32.4 % Red Cell Distribution Width 15.1 % Platelet Count 139 TH/MM3 Mean Platelet Volume 8.6 FL Neutrophils (%) (Auto) 69.3 % Lymphocytes (%) (Auto) 19.6 % Monocytes (%) (Auto) 8.0 % Eosinophils (%) (Auto) 2.4 % Basophils (%) (Auto) 0.7 % Neutrophils # (Auto) 4.1 TH/MM3 Lymphocytes # (Auto) 1.2 TH/MM3 Monocytes # (Auto) 0.5 TH/MM3 Eosinophils # (Auto) 0.1 TH/MM3 Basophils # (Auto) 0.0 TH/MM3 CBC Comment DIFF FINAL Differential Comment Blood Urea Nitrogen 42 MG/DL Creatinine 3.13 MG/DL Random Glucose 203 MG/DL Total Protein 7.8 GM/DL Albumin 3.2 GM/DL Calcium Level 8.8 MG/DL Phosphorus Level 3.1 MG/DL Magnesium Level 2.1 MG/DL Alkaline Phosphatase 125 U/L Aspartate Amino Transf (AST/SGOT) 35 U/L Alanine Aminotransferase (ALT/SGPT) 27 U/L Total Bilirubin 0.2 MG/DL Sodium Level 136 MEQ/L Potassium Level 5.2 MEQ/L Chloride Level 105 MEQ/L Carbon Dioxide Level 22.5 MEQ/L Anion Gap 9 MEQ/L Estimat Glomerular Filtration Rate 18 ML/MIN Total Creatine Kinase 309 U/L Creatine Kinase MB 3.9 NG/ML Creatine Kinase MB % 1.3 % Troponin I LESS THAN 0.02 NG/ML B-Type Natriuretic Peptide 194 PG/ML Thyroid Stimulating Hormone 3rd Gen 2.280 uIU/ML Prothrombin Time 10.7 SEC Prothromb Time International Ratio 1.0 RATIO Activated Partial Thromboplast Time 27.0 SEC MDM Medical Decision Making Medical Screen Exam Complete: Yes Emergency Medical Condition: Yes Medical Record Reviewed: Yes Interpretation(s) Last Impressions Chest X-Ray 09/21/17 1403 Signed Impressions: Service Date/Time: August 14:25 - CONCLUSION: No acute disease. Elie Rogel Jr., MD 1759 PM. CBC hemoglobin 9.2 hematocrit 28.5. Platelet 139. Potassium 5.2. BUN 42. Creatinine 3.13. GFR 18. Glucose 203. Alkaline phosphatase 105. Total CK 309 and normal MB fraction. Troponin normal. BNP 194. Differential Diagnosis Differential diagnosis including heart block, side effect to medication, IN. Narrative Course 57-year-old female with lightheadedness and shortness of breath and EKG shows complete heart block. Patient is on calcium channel devante and beta devante. Normal saline solution 100 cc an hour. External pacer will be on standby in case we need to pace her. Dopamine as needed for bradycardia and hypotension. Cardiology consultation will be obtained with Dr. Goss. Dr. Goss advised hold metoprolol. Diagnosis Primary Impression: Complete heart block Additional Impression: Chronic kidney disease, stage 4, severely decreased GFR Admitting Information Admitting Physician Requests: Admit Micheal Chisholm MD Sep 21, 2017 14:20
[2017-09-21 14:40] LABS: AUTOMATED NEUTROPHIL # 4.1 TH/MM3 (1.8-7.7); BASOPHIL % 0.7 % (0.0-2.0); EOSINOPHIL # 0.1 TH/MM3 (0-0.4); EOSINOPHIL % 2.4 % (0.0-4.0); HEMATOCRIT 28.5 % (35.0-46.0); HEMO FLAGS DIFF FINAL; LYMPH % 19.6 % (9.0-44.0); LYMPHOCYTE # 1.2 TH/MM3 (1.0-4.8); MEAN CELL VOLUME 92.1 FL (80.0-100.0); MEAN CORPUSCULAR HEMOGLOBIN 29.8 PG (27.0-34.0); MEAN CORPUSCULAR HGB CONC 32.4 % (32.0-36.0); NEUT % 69.3 % (16.0-70.0); PLATELET COUNT 139 TH/MM3 (150-450); RED BLOOD COUNT 3.09 MIL/MM3 (4.00-5.30); RED CELL DISTRIBUTION WIDTH 15.1 % (11.6-17.2); WHITE BLOOD COUNT 5.9 TH/MM3 (4.0-11.0)
--- NOTE | 2017-09-21 14:47 | RADRPT ---
EXAM DATE/TIME: 09/21/2017 14:25 [facility] COMPARISON: CHEST SINGLE AP, August 29, 2016, 17:47. INDICATIONS : Shortness of breath. MEDICAL HISTORY : Chronic obstructive pulmonary disease. Congestive heart failure. Hypertension. Sleep apnea. Chron's d isease. renal failure. rheumatoid arthritis. diabetes. anemia. lupus. blood transfusion. SURGICAL HISTORY : Cardiac catheterization. Thoracentesis. Bilateral breast biopsy. Wedge resection to ovary. Uterine gracia rgery. ENCOUNTER: Initial ACUITY: 1 day PAIN SCORE: 0/10 LOCATION: Bilateral chest FINDINGS: A single view of the chest demonstrates the lungs to be symmetrically aerated without evidence of mas s, infiltrate or effusion. The cardiomediastinal contours are unremarkable. Osseous structures are intact. CONCLUSION: No acute disease. Elie Rogel Jr., MD on September 21, 2017 at 14:38 Board Certified Radiologist. This report was verified electronically.
[2017-09-21 14:54] LABS: ALT (GPT) 27 U/L (10-53); ANION GAP 9 MEQ/L (5-15); AST (GOT) 35 U/L (15-37); BICARBONATE 22.5 MEQ/L (21.0-32.0); BLOOD UREA NITROGEN 42 MG/DL (7-18); CHLORIDE 105 MEQ/L (98-107); GLOMERULAR FILTRATION RATE 18 ML/MIN (>89); MAGNESIUM 2.1 MG/DL (1.5-2.5); POTASSIUM 5.2 MEQ/L (3.5-5.1); SODIUM (NA) 136 MEQ/L (136-145)
[2017-09-21 15:05] LABS: ALKALINE PHOSPHATASE 125 U/L (45-117); CREATINE KINASE 309 U/L (26-192); TOTAL BILIRUBIN ADULT 0.2 MG/DL (0.2-1.0)
[2017-09-21 15:17] LABS: CKMB 3.9 NG/ML (0.5-3.6)
[2017-09-21] MEDS ORDERED: METO100T PO (15:22)
[2017-09-21] MEDS ORDERED: HYDR-3801 PO (15:22)
[2017-09-21] MEDS: SODIUM CHLOR 0.9% 1000 ML INJ 1,000 ML IV SCH (15:23)
[2017-09-21 16:37] LABS: PROTHROMBIN TIME - PATIENT 10.7 SEC (9.8-11.6)
--- NOTE | 2017-09-21 18:59 | HHI.HP ---
[facility] Natan Booth MD Admission Diagnosis complete heart block Diagnoses: (1) Complete heart block Diagnosis: Principal (2) Rhabdomyolysis Diagnosis: Principal (3) Hyperkalemia Diagnosis: Principal (4) HTN (hypertension) Diagnosis: Principal (5) Thrombocytopenia Diagnosis: Principal (6) Renal insufficiency Diagnosis: Principal (7) Hypoglycemia Diagnosis: Principal (8) Anemia Diagnosis: Principal Travel History International Travel<30 Days: No Contact w/Intl Traveler <30 Da: No Traveled to Known Affected Are: No History of Present Illness This is a 57-year-old female with a PMH of HTN, Lupus, Rheumatoid Arthritis, CHF (Echo 08/30/16 w/ EF 45-50%), Hyperlipidemia and DM who was sent to the ER by her PCP for abnormal EKG. Pt states she had c/o dizziness and SOB starting earlier today, seen by PCP and had EKG done in office showing complete heart block. Dr. Goss contacted by PCP who recommended she come to ER. On arrival, BP 167/96, HR 41, O2 sat 98% on RA, Afebrile. CBC essentially at baseline. Hemoglobin 9.2, previous exam 0.4 06/29/17. Platelets 139, previously 94 on . K+ 5.2Creatinine 3.13, previous 2.25 on 06/29/17. CPK 309. Troponin negative. BNP 194. INR 1.0. CXR with no acute findings. Dr. Goss consulted by ER physician, recommended holding Metoprolol. Review of Systems Except as stated in HPI: all other systems reviewed are Neg ROS: 14 point review of systems otherwise negative. Past Family Social History Past Medical History PMH: HTN, Lupus, Rheumatoid Arthritis, CHF (Echo 08/30/16 w/ EF 45-50%), Hyperlipidemia and DM Past Surgical History PAST SURGICAL HISTORY: Breast Reduction, Wedge Resection, Cardiac Catheter Allergies: Coded Allergies: baclofen (Unverified Allergy, Severe, 09/21/17) Family History PAST FAMILY HISTORY: Reviewed, positive for DM and CAD. Social History PAST SOCIAL HISTORY: Negative for alcohol, tobacco or drugs. Physical Exam Vital Signs Vital Signs Date Time Temp Pulse Resp B/P (MAP) Pulse Ox O2 Delivery O2 Flow Rate FiO2 09/21/17 18:00 39 16 165/65 (98) 95 Room Air 09/21/17 16:00 38 16 158/70 (99) 96 Room Air 09/21/17 15:15 40 16 151/66 (94) 98 Room Air 09/21/17 13:59 Room Air 09/21/17 13:38 98.2 41 12 167/96 (119) 98 Physical Exam PE: GENERAL: Middle-aged white female in no acute distress. HEENT: PERRLA, EOMI. No scleral icterus or conjunctival pallor. No lid lag or facial droop. CARDIOVASCULAR: Bradycardia, HR 30s. No obvious murmurs to auscultation. No chest tenderness to palpation. RESPIRATORY: No obvious rhonchi or wheezing. Clear to auscultation. Breath sounds equal bilaterally. GASTROINTESTINAL: Abdomen soft, non-tender, nondistended. BS normal. MUSCULOSKELETAL: Extremities without clubbing, cyanosis, or edema. No obvious deformities. NEUROLOGICAL: Awake, alert and oriented x4. No focal neurologic deficits. Moving both upper and lower extremities spontaneously. Laboratory Laboratory Tests Test 09/21/17 14:15 09/21/17 15:15 White Blood Count 5.9 Red Blood Count 3.09 Hemoglobin 9.2 Hematocrit 28.5 Mean Corpuscular Volume 92.1 Mean Corpuscular Hemoglobin 29.8 Mean Corpuscular Hemoglobin Concent 32.4 Red Cell Distribution Width 15.1 Platelet Count 139 Mean Platelet Volume 8.6 Neutrophils (%) (Auto) 69.3 Lymphocytes (%) (Auto) 19.6 Monocytes (%) (Auto) 8.0 Eosinophils (%) (Auto) 2.4 Basophils (%) (Auto) 0.7 Neutrophils # (Auto) 4.1 Lymphocytes # (Auto) 1.2 Monocytes # (Auto) 0.5 Eosinophils # (Auto) 0.1 Basophils # (Auto) 0.0 CBC Comment DIFF FINAL Differential Comment Blood Urea Nitrogen 42 Creatinine 3.13 Random Glucose 203 Total Protein 7.8 Albumin 3.2 Calcium Level 8.8 Phosphorus Level 3.1 Magnesium Level 2.1 Alkaline Phosphatase 125 Aspartate Amino Transf (AST/SGOT) 35 Alanine Aminotransferase (ALT/SGPT) 27 Total Bilirubin 0.2 Sodium Level 136 Potassium Level 5.2 Chloride Level 105 Carbon Dioxide Level 22.5 Anion Gap 9 Estimat Glomerular Filtration Rate 18 Total Creatine Kinase 309 Creatine Kinase MB 3.9 Creatine Kinase MB % 1.3 Troponin I LESS THAN 0.02 B-Type Natriuretic Peptide 194 Thyroid Stimulating Hormone 3rd Gen 2.280 Prothrombin Time 10.7 Prothromb Time International Ratio 1.0 Activated Partial Thromboplast Time 27.0 Result Diagram: 09/21/17141409/21/171414 Caprini VTE Risk Assessment Caprini VTE Risk Assessment: Mod/High Risk (score >= 2) Caprini Risk Assessment Model Point Value = 1 Point Value = 2 Point Value = 3 Point Value = 5 Age 41-60 Minor surgery BMI > 25 kg/m2 Swollen legs Varicose veins or History of unexplained or recurrent spontaneous Oral contraceptives or hormone replacement Sepsis (< 1 month) Serious lung disease, including pneumonia (< 1 month) Abnormal pulmonary function Acute myocardial infarction Congestive heart failure (< 1 month) History of inflammatory bowel disease Medical patient at bed rest Age 61-74 Arthroscopic surgery Major open surgery (> 45 min) Laparoscopic surgery (> 45 min) Malignancy Confined to bed (> 72 hours) Immobilizing plaster cast Central venous access Age >= 75 History of VTE Family history of VTE Factor V Leiden Prothrombin [id number] Lupus anticoagulant Anticardiolipin antibodies Elevated serum homocysteine Heparin-induced thrombocytopenia Other congenital or acquired thrombophilia Stroke (< 1 month) Elective arthroplasty Hip, pelvis, or leg fracture Acute spinal cord injury (< 1 month) Prophylaxis Regimen Total Risk Factor Score Risk Level Prophylaxis Regimen 0-1 Low Early ambulation 2 Moderate Order ONE of the following: *Sequential Compression Device (SCD) *Heparin 5000 units SQ BID 3-4 Higher Order ONE of the following medications: *Heparin 5000 units SQ TID *Enoxaparin/Lovenox 40 mg SQ daily (WT < 150 kg, CrCl > 30 mL/min) *Enoxaparin/Lovenox 30 mg SQ daily (WT < 150 kg, CrCl > 10-29 mL/min) *Enoxaparin/Lovenox 30 mg SQ BID (WT < 150 kg, CrCl > 30 mL/min) AND/OR *Sequential Compression Device (SCD) 5 or more Highest Order ONE of the following medications: *Heparin 5000 units SQ TID (Preferred with Epidurals) *Enoxaparin/Lovenox 40 mg SQ daily (WT < 150 kg, CrCl > 30 mL/min) *Enoxaparin/Lovenox 30 mg SQ daily (WT < 150 kg, CrCl > 10-29 mL/min) *Enoxaparin/Lovenox 30 mg SQ BID (WT < 150 kg, CrCl > 30 mL/min) AND *Sequential Compression Device (SCD) Assessment and Plan Problem List: (1) Complete heart block ICD Code: I44.2 - Atrioventricular block, complete Status: Acute (2) Hyperkalemia ICD Code: E87.5 - Hyperkalemia (3) Rhabdomyolysis ICD Code: M62.82 - Rhabdomyolysis (4) Thrombocytopenia ICD Code: D69.6 - Thrombocytopenia, unspecified (5) Renal insufficiency ICD Code: N28.9 - Disorder of kidney and ureter, unspecified (6) Hypoglycemia ICD Code: E16.2 - Hypoglycemia, unspecified (7) Anemia ICD Code: D64.9 - Anemia, unspecified (8) HTN (hypertension) ICD Code: I10 - Essential (primary) hypertension Assessment and Plan A/P: 1. Complete Heart Block: EKG in PCP office w/ complete heart block, repeat EKG here w/ same findings, HR 30-40's, +dizziness/lightheadedness. Follows w/ Dr. Goss, consult placed by ER physician. Admit to CIC, pacing pads at bedside. Initial trop negative, check serial cardiac enzymes to eval for underlying ischemia. Echo 08/30/16 w/ EF 45-50%. Hold Metoprolol. CXR w/ no acute findings, images reviewed by me. 2. Hyperkalemia: Mild. K+ 5.2. No hemolysis. Repeat labs in am. 3. Renal Insufficiency: Acute on Chronic. Creatinine 3.13, previously 2.25 on 06/29/17. IVF, repeat labs in am. 4. Rhabdomyolysis: CPK 309. Repeat CPK for trend, IVF for hydration, caution w/ CHF. 5. Thrombocytopenia: Chronic. Platelets 139, previously 193 on 06/29/17, 94 on 05/04/17. No active bleeding, will monitor. 6. Hypoglycemia: h/o DM, hold Metformin and Insulin. Accu-Cheks, Hypoglycemic protocol. Monitor closely. 7. HTN: BP 150-160's, in light of complete heart block will hold antihypertensives for the moment, monitor BP. 8. Anemia: Chronic. Follows w/ Dr. Beltrán as outpatient. Hgb stable, currently 9.2, previously 10.4 06/29/17. Repeat labs in a.m. 9. DVT Prophylaxis: Heparin sq 10. Social work for d/c planning as needed. 11. Case discussed w/ ER physician at length. Physician Certification 2 Midnight Certification Type: Admission for Inpatient Services Order for Inpatient Services The services are ordered in accordance with Medicare regulations or non- Medicare payer requirements, as applicable. In the case of services not specified as inpatient-only, they are appropriately provided as inpatient services in accordance with the 2-midnight benchmark. Estimated LOS (days): 2 days is the estimated time the patient will need to remain in the hospital, assuming treatment plan goals are met and no additional complications. Post-Hospital Plan: Not yet determined Mariama Farr MD Sep 21, 2017 18:59
[2017-09-21] MEDS ORDERED: MAGNESIUM HYDROXIDE SUSP 30 ML CUP PO PRN (19:00)
[2017-09-21] MEDS ORDERED: ACETAMINOPHEN 325 MG TAB PO PRN (19:00)
[2017-09-21] MEDS ORDERED: GLUCAGON 1 MG/ML VIAL OTHER PRN (19:00)
[2017-09-21] MEDS ORDERED: LACTULOSE SYRUP 20 GM/30 ML CUP PO PRN (19:00)
[2017-09-21] MEDS ORDERED: SODIUM CHLORIDE 0.9% FLUSH 10 ML FLUSH IV FLUSH PRN (19:00)
[2017-09-21] MEDS ORDERED: ONDANSETRON HCL 4 MG/2 ML VIAL IVP PRN (19:00)
[2017-09-21] MEDS ORDERED: DEXTROSE 50% IN WATER 50 ML VIAL(D50) IV PUSH PRN (19:00)
[2017-09-21] MEDS ORDERED: NALOXONE HCL 0.4 MG/ML AMP IV PUSH PRN (19:00)
[2017-09-21] MEDS ORDERED: BISACODYL 10 MG SUPP RECTAL PRN (19:00)
[2017-09-21] MEDS ORDERED: SENNOSIDES 8.6 MG TAB PO PRN (19:00)
[2017-09-21] MEDS: INSULIN ASPART SUPPLEMENTAL SCALE SQ SCH (19:26)
[2017-09-21] MEDS: SODIUM CHLORIDE 0.9% FLUSH 10 ML FLUSH IV FLUSH SCH (21:00)
[2017-09-21 21:14] LABS: BLOOD, URINE NEG (NEG); GLUCOSE,URINE NEG (NEG); KETONE, URINE NEG (NEG); MUCUS URINE FEW /lpf (OCC); NITRITE,URINE NEG (NEG); SQUAMOUS EPITHELIAL CELL URINE 2 /hpf (0-5); URINE COLOR YELLOW (YELLW/STRAW)
[2017-09-21 21:15] LABS: BACTERIA, URINE FEW /hpf; COMMENT (UR) CATH-CULTURE IND; CULTURE IF INDICATED CATH CULTURE IND
[2017-09-21] MEDS: HEPARIN SODIUM - SQ 10,000 UNITS/ML VIAL SQ SCH (21:26)
[2017-09-21] MEDS: DOCUSATE SODIUM 50 MG/SENNA 8.6 MG TAB PO SCH (21:26)
--- NOTE | 2017-09-21 23:24 | EKG ---
Date Performed: 09/21/2017 Time Performed: 14:15:41 PTAGE: 57 years EKG: AV Dissocation, 3rd degree AV block RBBB Non-specific ST/T wave changes PREVIOUS TRACING : 05/05/2017 04.10 Compared to the previous tracing, now in 3rd degree A V block and RBBB DOCTOR: Francisco Blank Interpretating Date/Time 09/21/2017 23:22:48
[2017-09-22] VITALS (29 sets, daily range): BP systolic 137–235; BP diastolic 64–96; PULSE 36–96; RESP 18–20; TEMP 97.5–98.7; O2SAT 96–100
[2017-09-22] MEDS: SODIUM CHLOR 0.9% 1000 ML INJ 1,000 ML IV SCH (03:28)
[2017-09-22] MEDS: HEPARIN SODIUM - SQ 10,000 UNITS/ML VIAL SQ SCH (03:29)
[2017-09-22] MEDS: INSULIN ASPART SUPPLEMENTAL SCALE SQ SCH ×4 (08:00→21:00)
[2017-09-22 08:16] LABS: AUTOMATED NEUTROPHIL # 4.1 TH/MM3 (1.8-7.7); BASOPHIL % 0.5 % (0.0-2.0); EOSINOPHIL # 0.1 TH/MM3 (0-0.4); EOSINOPHIL % 2.4 % (0.0-4.0); HEMATOCRIT 25.4 % (35.0-46.0); HEMO FLAGS DIFF FINAL; LYMPH % 20.9 % (9.0-44.0); LYMPHOCYTE # 1.3 TH/MM3 (1.0-4.8); MEAN CELL VOLUME 92.7 FL (80.0-100.0); MEAN CORPUSCULAR HEMOGLOBIN 29.9 PG (27.0-34.0); MEAN CORPUSCULAR HGB CONC 32.2 % (32.0-36.0); NEUT % 66.2 % (16.0-70.0); PLATELET COUNT 125 TH/MM3 (150-450); RED BLOOD COUNT 2.74 MIL/MM3 (4.00-5.30); WHITE BLOOD COUNT 6.1 TH/MM3 (4.0-11.0)
[2017-09-22] MEDS ORDERED: hydrALAZINE HCL 20 MG/ML VIAL IV ONE (08:30)
[2017-09-22] MEDS ORDERED: METOPROLOL TARTRATE 5 MG/5 ML VIAL IV PUSH ONE (08:30)
[2017-09-22 08:51] LABS: BICARBONATE 23.5 MEQ/L (21.0-32.0); POTASSIUM 5.4 MEQ/L (3.5-5.1)
[2017-09-22] MEDS: DOCUSATE SODIUM 50 MG/SENNA 8.6 MG TAB PO SCH ×2 (09:00→21:00)
[2017-09-22] MEDS: SODIUM CHLORIDE 0.9% FLUSH 10 ML FLUSH IV FLUSH SCH ×3 (09:00→22:19)
--- NOTE | 2017-09-22 10:17 | MB ---
cc: BRUNO ANGELES DATE OF CONSULTATION 09/22/2017 INDICATION Complete heart block. HISTORY OF PRESENT ILLNESS This is a 57-year-old female who I have seen in the outpatient setting. She has a history of hypertension, SLE, rheumatoid arthritis, mild cardiomyopathy, hypertension, and diabetes. She presented to the outpatient setting with her primary care doctor, Dr. Tadeo with complaints of intermittent dizziness. She states over the course of the past few months, she has had rare episodes of some dizziness that lasted about a 1/2 hour at most. This particular episode occurred and was preceded by a prodrome of presyncope. In the outpatient center, she had an electrocardiogram which showed complete heart block. She had been recently initiated on Metoprolol. She was sent to the emergency department for further monitoring. Her last dose of Metoprolol was the evening of September 20. We are consulted for further recommendations. She denies any chest pain or any kwaku syncope. PAST MEDICAL HISTORY As mentioned above: 1. Hypertension 2. SLE 3. Rheumatoid arthritis 4. Congestive heart failure with nonischemic cardiomyopathy 5. Hyperlipidemia 6. Diabetes PAST SURGICAL HISTORY Breast reduction ALLERGIES BACLOFEN FAMILY HISTORY Denies any family history of early coronary artery disease or sudden cardiac . SOCIAL HISTORY Denies alcohol, tobacco or drug use. REVIEW OF SYSTEMS A 12-point review of some was performed and is negative unless otherwise as noted in the history of present illness. PHYSICAL EXAMINATION VITAL SIGNS: Temperature is 97, heart rate 37, blood pressure 137/67 mmHg. GENERAL: Alert and oriented x3 in no acute distress. HEENT: Exam shows pupils reactive to light, extraocular movements are intact. No elevation of jugular venous distension. No thyromegaly or lymphadenopathy. No carotid bruits. LUNGS: Clear to auscultation bilaterally. CARDIOVASCULAR: Regular with a 1/6 systolic murmur. No rubs or gallops. ABDOMEN: Exam is nontender and nondistended. Good bowel sounds. No hepatosplenomegaly. EXTREMITIES: No clubbing, cyanosis or edema. Good peripheral pulses. NEUROLOGIC: Cranial nerves intact. Motor and sensory grossly intact. LABORATORY DATA WBC 6.1, hemoglobin is a 8.2, platelet count 125, INR is 1. Sodium 139, potassium 5.4, BUN 42, creatinine is 3.13. Electrocardiogram, sinus rhythm, complete heart block idioventricular escape rhythm 40 beats a minute. ASSESSMENT 1. High degree AV conduction block. 2. Mild cardiomyopathy, nonischemic. 3. History of congestive heart failure, hypertension, hyperlipidemia, diabetes. PLAN TSH is normal. There is no obvious secondary cause to her complete heart block. She has now been off metoprolol for greater than 24 hours with no confucianist of AV conduction. She has had some intermittent symptoms over the course of the past few months and even prior to initiation of the beta-devante. I think this is likely degeneration of her [place] conduction and she will require a pacemaker. Discussed the risks, benefits and alternatives with her. She is potentially agreeable. Her renal function is slightly elevated compared to baseline. We will avoid any potential AV leela blocking agents. Her troponin is very low to intermediate range likely secondary to her mild cardiomyopathy and renal dysfunction. We will get a repeat echocardiogram since her last echo was 2015 with EF 45-50%. Anticipate possible pacemaker later today. Will consult Dr. Sarmiento MD LINDA Jarquin/SUJIT /9:29 AM /9:52 AM MARIA DEL CARMEN
--- NOTE | 2017-09-22 11:41 | ECHRPT ---
Indication: CARDIOMYOPATHY CONCLUSIONS Normal left ventricular size. Mild concentric left ventricular hypertrophy. The left ventricular systolic function is normal with an estimated ejection fraction in the range of 55-60%. Mitral annular calcification is present. Zyhha-js-xanu mitral valve regurgitation. There is mild tricuspid valve regurgitation. The estimated pulmonary arterial pressure is 38 mmHg. BP: 137 / 67 HR: 37 Rhythm: MEASUREMENTS (Male / Female) Normal Values Technical Quality:Fair 2D ECHO LV Diastolic Diameter PLAX 4.2 cm 4.2 - 5.9 / 3.9 - 5.3 cm LV Systolic Diameter PLAX 3.3 cm IVS Diastolic Thickness 1.4 cm 0.6 - 1.0 / 0.6 - 0.9 cm LVPW Diastolic Thickness 1.1 cm 0.6 - 1.0 / 0.6 - 0.9 cm LV Relative Wall Thickness 0.6 LA Systolic Diameter LX 4.1 cm 3.0 - 4.0 / 2.7 - 3.8 cm DOPPLER Mitral E Point Velocity 125.0 cm/s Mitral A Point Velocity 119.0 cm/s Mitral E to A Ratio 1.1 TR Peak Velocity 265.0 cm/s TR Peak Gradient 28.1 mmHg Right Atrial Pressure 10.0 mmHg Pulmonary Artery Systolic Pressu 38.1 mmHg Right Ventricular Systolic Press 38.1 mmHg FINDINGS LEFT VENTRICLE Normal left ventricular size. Mild concentric left ventricular hypertrophy. The left ventricular systolic function is normal with an estimated ejection fraction in the range of 55-60%. RIGHT VENTRICLE Normal right ventricular size and systolic function. LEFT ATRIUM The left atrial size is normal. RIGHT ATRIUM The right atrial size is normal. ATRIAL SEPTUM Normal atrial septal thickness without atrial level shunting by limited color doppler interrogation. AORTA The aortic root and proximal ascending aorta are normal in size on limited imaging. MITRAL VALVE Mitral annular calcification is present. Xjpal-gi-zgln mitral valve regurgitation. AORTIC VALVE Trileaflet aortic valve. No aortic valve stenosis or regurgitation. TRICUSPID VALVE There is mild tricuspid valve regurgitation. The estimated pulmonary arterial pressure is 38 mmHg. PULMONARY VALVE No pulmonary valve regurgitation or stenosis. VESSELS The inferior vena cava is normal in size. PERICARDIUM No pericardial effusion. Lester Goss MD, FACC (Electronically Signed) Final Date:22 September 2017 11:40
[2017-09-22] MEDS ORDERED: BENZONATATE 100 MG CAP PO PRN (13:00)
[2017-09-22] MEDS ORDERED: ACETAMINOPHEN/HYDROcodone 325 MG/10 MG TAB PO PRN (13:00)
[2017-09-22] MEDS ORDERED: RESP: IPRATROPIUM 0.5 MG/2.5 ML NEB NEB PRN (13:00)
[2017-09-22] MEDS ORDERED: SODIUM POLYSTYRENE SULFONATE SUSP 15 GM/60 ML CUP PO ONE (13:45)
[2017-09-22] MEDS: hydrALAZINE HCL 50 MG TAB PO SCH ×2 (14:35→18:00)
--- NOTE | 2017-09-22 14:51 | HHI.PR ---
Subjective Remarks Follow-up for complete heart block and acute on chronic renal failure Patient complaining about her chronic back pain and asked for medication. She also complained about her chronic cough in which she takes codeine for. Denied any chest pain, shortness of breathing, palpitation, lightheadedness dizziness. She does stated that yesterday she had decreased urine output. Discussed with patient's nurse in which patient was originally scheduled for pacemaker later today but that was canceled due to her hemoglobin being 8.9. Patient's nurse Ja stated that Dr. Sarmiento requested to transfuse patient with packed red blood cells. Objective Vitals Vital Signs Date Time Temp Pulse Resp B/P (MAP) Pulse Ox O2 Delivery O2 Flow Rate FiO2 09/22/17 12:01 38 09/22/17 11:30 98.3 40 20 154/70 (98) 99 09/22/17 11:00 38 09/22/17 10:00 38 09/22/17 09:00 38 09/22/17 08:45 98.0 40 18 158/82 (107) 100 09/22/17 08:00 38 09/22/17 07:00 36 09/22/17 06:00 38 09/22/17 05:00 36 09/22/17 04:02 97.5 37 18 137/67 (90) 98 09/22/17 04:00 38 09/22/17 03:00 37 09/22/17 02:00 37 09/22/17 01:00 37 09/22/17 00:00 36 09/21/17 23:15 97.9 39 16 155/62 (93) 99 09/21/17 23:00 37 09/21/17 22:00 40 09/21/17 21:00 40 09/21/17 20:30 40 159/73 (101) 09/21/17 20:15 39 09/21/17 20:15 97.1 39 18 176/70 (105) 100 09/21/17 18:00 39 16 165/65 (98) 95 Room Air 09/21/17 16:00 38 16 158/70 (99) 96 Room Air 09/21/17 15:15 40 16 151/66 (94) 98 Room Air I/O 09/21/17 09/21/17 09/21/17 09/22/17 09/22/1727/17 07:00 15:00 23:00 07:00 15:00 23:00 Intake Total 240 ml 826 ml Output Total 350 ml Balance -350 ml 240 ml 826 ml Intake Oral 240 ml IV Total 826 ml Output Urine Total 350 ml # Voids 1 # Bowel Movements 1 Result Diagram: 09/22/17 0738 09/22/17 0738 Imaging Last Impressions Chest X-Ray 09/21/17 1403 Signed Impressions: Service Date/Time: August 14:25 - CONCLUSION: No acute disease. Elie Rogel Jr., MD Objective Remarks GENERAL: in NAD CARDIOVASCULAR: Bradycardia and regular rhythm without murmurs, gallops, or rubs. RESPIRATORY: Breath sounds equal bilaterally. No accessory muscle use. GASTROINTESTINAL: Abdomen soft, non-tender, nondistended. MUSCULOSKELETAL: No cyanosis, or edema. BACK: Nontender without obvious deformity. No CVA tenderness. Medications and IVs Current Medications Sodium Chloride 1,000 ml @ 100 mls/hr Q10H IV Last administered on 09/22/17 03:28; Start 09/21/17 at 14:15; Stop 09/22/17 at 10:38; Status DC Sodium Chloride (NS Flush) 2 ml UNSCH PRN IV FLUSH FLUSH AFTER USING IV ACCESS ; Start 09/21/17 at 19:00 Sodium Chloride (NS Flush) 2 ml BID IV FLUSH Last administered on 09/22/17 09 :00; Start 09/21/17 at 21:00 Acetaminophen (Tylenol) 650 mg Q4H PRN PO TEMP > 100.4; Start 09/21/17 at 19: 00 Ondansetron HCl (Zofran Inj) 4 mg Q6H PRN IVP NAUSEA OR VOMITING; Start at 19:00 Heparin Sodium (Porcine) (Heparin Inj) 5,000 units Q8H SQ Last administered on 09/22/17 03:29; Start 09/21/17 at 20:00; Stop 09/22/17 at 10:38; Status DC Naloxone HCl (Narcan Inj) 0.4 mg UNSCH PRN IV PUSH SEE LABEL COMMENTS; Start 09/21/17 at 19:00 Senna/Docusate Sodium (Ro-Colace) 1 tab BID PO Last administered on 21:26; Start 09/21/17 at 21:00 Magnesium Hydroxide (Milk Of Magnesia Liq) 30 ml Q12H PRN PO Mild constipation ; Start 09/21/17 at 19:00 Sennosides (Senokot) 17.2 mg Q12H PRN PO Moderate constipation; Start at 19:00 Bisacodyl (Dulcolax Supp) 10 mg DAILY PRN RECTAL SEVERE CONSITIPATION; Start 09/21/17 at 19:00 Lactulose (Lactulose Liq) 30 ml DAILY PRN PO SEVERE CONSITIPATION; Start 09/21 at 19:00 Dextrose (D50w (Vial) Inj) 50 ml UNSCH PRN IV PUSH HYPOGLYCEMIA-SEE COMMENTS Last administered on 09/21/17 19:18; Start 09/21/17 at 19:00 Glucagon (Glucagon Inj) 1 mg UNSCH PRN OTHER HYPOGLYCEMIA-SEE COMMENTS; Start 09/21/17 at 19:00 Insulin Aspart (NovoLOG SUPPLEMENTAL SCALE) 1 ACHS SLIDING SCALE SQ ; Start at 21:00 Ferrous Sulfate (Ferrous Sulfate) 325 mg BID PO ; Start 09/22/17 at 21:00 Benzonatate (Tessalon) 100 mg TID PRN PO cough; Start 09/22/17 at 13:00 Sodium Polystyrene Sulfonate (Kayexalate Liq) 15 gm ONCE ONCE PO Last administered on 09/22/17 14:36; Start 09/22/17 at 13:45; Stop 09/22/17 at 13 :46; Status DC Calcitriol (Rocaltrol) 0.5 mcg DAILY PO ; Start 09/23/17 at 09:00 Fluticasone Propionate (Flovent Hfa 110 Mcg Inh) 2 puff BID INH ; Start at 15:00 Hydralazine HCl (Apresoline) 50 mg TID PO Last administered on 09/22/17 14:35 ; Start 09/22/17 at 14:00 Acetaminophen/ Hydrocodone Bitart ([place] 10-325 Mg) 1 tab Q6H PRN PO PAIN; Start 09/22/17 at 13:00 Hydroxychloroquine Sulfate (Plaquenil) 200 mg BID PO ; Start 10/27/17 at 21:00 Ipratropium [place] (Atrovent Neb) 0.5 mg Q4HR NEB PRN NEB SHORTNESS OF BREATH ; Start 09/22/17 at 13:00 Patient Own Medication PT OWN MED: LEFLUNOM... DAILY PO ; Start 09/23/17 at 09: 00; Status Future Hold Pantoprazole Sodium (Protonix) 20 mg DAILY PO ; Start 09/23/17 at 09:00 A/P Problem List: (1) Complete heart block ICD Code: I44.2 - Atrioventricular block, complete Status: Acute (2) Hyperkalemia ICD Code: E87.5 - Hyperkalemia (3) Rhabdomyolysis ICD Code: M62.82 - Rhabdomyolysis (4) Thrombocytopenia ICD Code: D69.6 - Thrombocytopenia, unspecified (5) Renal insufficiency ICD Code: N28.9 - Disorder of kidney and ureter, unspecified (6) Hypoglycemia ICD Code: E16.2 - Hypoglycemia, unspecified (7) Anemia ICD Code: D64.9 - Anemia, unspecified (8) HTN (hypertension) ICD Code: I10 - Essential (primary) hypertension Assessment and Plan Patient presented with bradycardia with dizziness/lightheadedness Complete Heart Block: - EKG in PCP office w/ complete heart block, repeat EKG here w/ same findings, HR 30-40's, +dizziness/lightheadedness. Follows w/ Dr. Goss, consult placed by ER physician. -Continue with pacing pads at bedside. Echo 08/30/16 w/ EF 45-50%. -Metoprolol was held and patient continues to have bradycardia. -EP consulted and recommended pacemaker. Dr. Sarmiento stated that since her hemoglobin is 8.2 today he wants patient transfuse before pacemaker is placed. Anemia, chronic -Patient has no active bleeding. She follows up with Dr. Beltrán as outpatient. -We will transfuse patient 1 unit packed red blood cells today. We will obtain a posttransfusion H&H. Hyperkalemia: Mild. K+ 5.2. No hemolysis. -Continue to increase. Will give Kayexalate and repeat potassium level. Acute on chronic renal failure. -Creatinine 3.13, previously 2.25 on 06/29/17. -Patient currently on IV fluids. Patient sees Dr. Wilder as outpatient. Will consult her jockey valet. Thrombocytopenia: Chronic. - Platelets 139, previously 193 on 06/29/17, 94 on 05/04/17. No active bleeding, will monitor. Hypoglycemia: - h/o DM, hold Metformin and Insulin. Accu-Cheks, Hypoglycemic protocol. Monitor closely. HTN: - BP 150-160's, in light of complete heart block will hold antihypertensives for the moment, monitor BP. Chronic cough -Most likely due to postnasal dripping. Will continue Flonase. Patient usually takes codeine for this and at the moment is contraindicating due to bradycardia. -We'll give Tessalon Perles instead. Chronic back pain -Will resume [place] DVT Prophylaxis: Heparin sq Discharge Planning Pacemaker placement rescheduled due to low hemoglobin Jaylin Valles MD Sep 22, 2017 14:51
[2017-09-22] MEDS ORDERED: SODIUM CHLOR 0.9% 250 ML INJ 250 ML IV ONE (15:00)
[2017-09-22] MEDS: FLUTICASONE PROPIONATE 110 MCG/ACT 12 GM INHALER INH SCH ×2 (15:30→22:18)
[2017-09-22] MEDS ORDERED: KETAMINE HCL 500 MG/10 ML VIAL ONE (15:48)
--- NOTE | 2017-09-22 16:17 | MB ---
cc: EDWIN DODSON M.D. DATE OF CONSULTATION 09/22/17 ELECTROPHYSIOLOGY CONSULT HISTORY OF PRESENT ILLNESS Mrs. Mcdonald is a 57-year-old -Iranian female with a history of high blood pressure, lupus, diabetes mellitus, obesity, history of heart failure but last ejection fraction is around 45-50%, seen by Dr. Goss, admitted through the emergency room due to shortness of breath. She was found on complete heart block. AV dissociation. I was consulted for further evaluation and management. The chart was reviewed. The patient was evaluated. ALLERGIES BACLOFEN. SOCIAL HISTORY The history is negative for smoking and drinking. FAMILY HISTORY Noncontributory to her current medical condition. MEDICATIONS At home Mrs. Mcdonald was on: 1. Hydroxychloroquine 200 milligrams twice a day. 2. Albuterol inhaler. 3. Erythropoietin 40,000 units every 2 weeks. 4. Zocor 80 milligrams a day. 5. Hydralazine 100 milligrams a day. 6. Nifedipine ER. 7. Losartan. 8. Hydrochlorothiazide. 9. Neurontin. 10. Lasix. 11. Omeprazole. 12. Insulin. She was on metoprolol that was DCd a long time ago. Over 24 hours. REVIEW OF SYSTEMS Currently the patient refers no chest pain or chest discomfort. No fever. PHYSICAL EXAMINATION GENERAL: Alert, fully oriented. VITAL SIGNS: Blood pressure 154/70, pulse around 38, respiratory rate 18. LUNGS: Ventilated. CARDIOVASCULAR: S1-S2, irregular. ABDOMEN: Soft. No mass. Obese. EXTREMITIES: No edema. CARDIOLOGY STUDIES Electrocardiogram complete AV dissociation. LABORATORY DATA Hemoglobin 8.2, white blood cell 6.1, potassium 5.4, creatinine is 3.07, troponin 0.02. TSH 2.28. 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 She is not any more on beta-devante. Her last echo ejection fraction was around 45-50%. ___ echo today was 55-60%. She is very symptomatic. She is going to need a permanent pacemaker. The risks, the nature and the benefit of the procedure are clearly stated to her. The risks include pneumothorax, cardiac perforation, stroke and even . She understood and agreed to proceed. Procedure will be performed during hospitalization. MD RODRIGO Fuentes/HECTOR /3:46 PM /3:55 PM
[2017-09-22] MEDS ORDERED: VANCOMYCIN 500 MG VIAL ONE (16:21)
[2017-09-22] MEDS ORDERED: LIDOCAINE HCL 2% 50 ML VIAL ONE (16:21)
[2017-09-22] MEDS ORDERED: ceFAZolin INJ 1,000 MG VIAL ONE (16:22)
[2017-09-22] MEDS ORDERED: VANCOMYCIN HCL 1000 MG VIAL ONE (16:22)
--- NOTE | 2017-09-22 17:32 | CATHPROC ---
[employer] HIS Report Study Information Study Number Admission Scheduled Start Study Start [id number] Sep 21 2017 6:48PM 09/22/2017 Sep 22 2017 12:14PM [place] Service Cardiac Pacer/ICD Admit Source Facility Department Other [facility] - [employer] Physician and Clinical Staff Initial Niko Madison [employer] Supervisor Anaid Carpio,RT(R) TECH2 Other Anesthesia, [facility] Recorder Lorelei Wan,TONIRKonstantin Padilla,RT(R) Procedures Performed Procedure Lead Insertion Equipment Time Potato Chip Cooker Machine Description Size Mfg Part Number Used/Scraped CATHETER, FR4 BERENSTEIN [id number] 17:15 ANGIO-DYNAMICS FR 4 Used 65CM *[id number] DERMABOND, ADHESIVE SKIN [id number] 12:19 CORDIS/PACER * Used GLUE MINI *[id number] 12:19 MEDLINE INDUSTRIES SUTURE, STRIP PLUS 1/2" * Used *[id number] 12:19 MEDLINE PACER FLORES, LIMB * 2530 *[id number] Used [id number] 12:19 MEDLINE PACER PACK, PACER CUSTOM * Used *[id number] 16:48 Needle Sponge Count 2 22 Used 16:48 Needle Sponge Count 20 200 Used 16:48 Needle Sponge Count 4 4 Used SUTURE, 0 ETHIBOND [CT1] (CX21D), 8pk SUTURE, 2-0 VICRYL [CT1] ([id number]) SUTURE, 2-0 VICRYL [CT1] ([id number]) [id number] 12:19 [employer],WARM AIR CCL * Used *[id number] LEAD, TENDRIL ACTIVE FIXATION 17:09 [employer] 52CM [id number] Used BIPOLAR LEAD, TENDRIL ACTIVE FIXATION 17:06 [employer] 58 [id number] Used BIPOLAR PACEMAKER, ASSURITY DR WOOD 17:15 [employer] [id number] Used MRI [facility] PAD, ELECTROSURGICAL 12:19 * [id number] *[id number] Used SURGICAL GROUNDING ORANGE [id number] 12:19 [employer] CARLOS. / * Used *[id number] Equipment Model, Serial, Lot Number and Expiration Data Description Model Number Serial Number Lot Number Expiration Date LEAD, TENDRIL ACTIVE FIXATION [id number] 10-26-2017 BIPOLAR LEAD, TENDRIL ACTIVE FIXATION [id number] 10-26-2017 BIPOLAR PACEMAKER, ASSURITY RF MRI [id number] 02-24-2019 History: Current Medications Medication Dosage/Unit Route Frequency Last Date/Time Taken HEPARIN History: Allergies Allergy Reaction Baclofen History: Risk Factors Family History of Hypertension Dyslipidemia Previous Heart Failure Premature CAD Yes Yes Yes Yes Peripheral Artery Chronic Lung Diabetes Diabetes Therapy Disease Disease History: Symptoms/Diagnosis Selection Items SOB Labs Hgb (g/dl) Hct (%) RBC (MIL/MM3) WBC (l/cumm) Platelets (thousands) 11.60-17.00 35.00-51.00 4.00-5.90 4.00-11.00 150.00-450.00 8.2 25.4 2.7 6.1 125 Glucose (mg/dl) BUN (mg/dl) Creatinine (mg/dl) BUN:Creatinine (1:x) 74.00-106.00 7.00-18.00 0.50-1.30 10.00-20.00 125 42 3.0 14 Na (meq/l) K (meq/l) Cl (meq/l) CO2 (mmol/L) Ca (mg/dl) 136.00-145.00 3.50-5.10 98.00-107.00 21.00-32.00 8.50-10.10 139 5.4 111 23.5 8.6 PT (sec) PTT (sec) INR (PTT:PT) 9.80-11.60 24.30-30.10 0.90-1.10 10.7 27 1 Troponin I (ng/ml) CPK (u/l) CPK-MB (ng/ML) 0.02-0.05 26.00-308.00 0.50-3.60 0.02 309 3.9 Medication Medication Total Dose (Bolus/Oral) Medication Total Dosage/Unit 2% XYLOCAINE 50 mL Medications (Bolus/Oral) Medication Time Given Dosage/Unit Administered By Reason 2% XYLOCAINE 09/22/2017 5:01:33 PM 50 mL Niko Sarmiento 50 mL 2% XYLOCAINE given in lab by Niko Sarmiento in Left upper chest via Subcutaneous. Medication (Drip) Medication Time Given Dosage/Unit Concentration/Unit Diluent (ml) Solution ANCEF 09/22/2017 4:45:00 PM 2 g 2 g ANCEF given in lab by Anesthesia, [facility] via Peripheral IV. Ordered by Niko Sarmiento. Reason: As pe r physicians verbal order. IV Solutions 09/22/2017 4:19:22 PM 0 mL (IV) NaCl .9 IV Solutions given in lab by Anesthesia, [facility] in Left Forearm via Peripheral IV. Pump/Drip Flow = 50 ml/hr using NaCl .9. Ordered by Niko Sarmiento. Reason: As per physicians verbal order. IV Solutions 09/22/2017 4:25:58 PM 0 mL (IV) NaCl .9 IV Solutions given in lab by Anesthesia, [facility] in Right Forearm via Peripheral IV. Pump/Drip Flow = 50 ml/hr using NaCl .9. Ordered by Niko Sarmiento. Reason: As per physicians verbal order. VANCOMYCIN DRIP 09/22/2017 4:45:37 PM 1 g 1 g VANCOMYCIN DRIP given in lab by Anesthesia, [facility] via Peripheral IV. Ordered by Niko Sarmiento. Isaura son: As per physicians verbal order. Initial Case Assessment Cardiovascular HR NIBP 40 191/81 Edema Present Skin color Skin None Normal Warm Neurological State Oriented to time-place- Alert Moves all extremities person Respiration - General Respiration Rate SpO2 (%) (B/min) 20 100 Final Case Assessment Cardiovascular HR NIBP Chest Pain 94 162/69 0 Edema Present Skin color Skin None Normal Warm Dry Circulatory - Lower Extremities Color Lower Right Color Lower Left Normal Normal Neurological State Oriented to time-place- Lethargic Moves all extremities person Respiration - General Respiration Rate SpO2 (%) O2 (lpm) (B/min) 16 100 6 Chronological Log Time Study Chronological Log 15:48:19 Dr Sarmiento aware of all labs. 15:50:06 Patient arrived via Bed. 15:50:28 Patient Name, D.O.B, / Armband Verified By R.N. 15:50:30 Consent signed by the physician and the patient and verified by the [employer] staff. 15:52:19 Pre-op and post- op instructions given; patient acknowledges understanding of instructions. 15:52:47 Verbal Stimulation=2 Physical Stimulation=2 Airway=2 Respiration=2 TOTAL=10. (0=absent, 1=l imited, 2=present) 15:52:58 Anesthesia at bedside. Assumes care of patient. Tere 15:53:00 Trying to obtain an IV right arm with no success. 15:53:22 Patient has been NPO for More than 6Hrs. 15:54:11 Skin Breakdown- none 15:54:24 A # 20 IV was noted in the Antecubital (right). Grade = ~GRADE~ unable to flush fluids . IV removed. 15:54:54 History and physical on the chart or being dictated. 16:07:11 IV team called stat to EP lab for IV insertion. 16:18:29 IV team started 20 gauge IV left forearm with good blood return. IV Solutions given in lab by Anesthesia, [facility] in Left Forearm via Peripheral IV. Pump/Drip Flow = 50 ml/hr using NaCl 16:19:22 .9. Ordered by Niko Sarmiento. Reason: As per physicians verbal order. 16:24:28 IV team started 20 gauge IV right forearm with good blood return. IV Solutions given in lab by Anesthesia, [facility] in Right Forearm via Peripheral IV. Pump/Drip Davey w = 50 ml/hr using 16:25:58 NaCl .9. Ordered by Niko Sarmiento. Reason: As per physicians verbal order. 16:29:03 Disposable Defibrillator Pads Placed On Patient. 16:29:07 Bovie ground pad applied to: right thigh 16:29:22 2% CHLORHEXIDINE GLUCONATE WASH AND NASAL SWIPE DONE PRIOR TO PROCEDURE. 16:30:18 Table restraints applied according to hospital policy Assessment: Initial Case, HR=40 BPM, XEFQ=449/81 mmhg, Edema=None, Color=Normal, Skin = Warm 16:30:27 Neurological: State=Alert, Ox3, CHAMPION Respiration: Resp=20 B/min, EvL1=315 % 16:30:49 Left Upper Chest Prepped Times Two. 16:43:19 Upper Chest Prepped Times Two. 2 g ANCEF given in lab by Anesthesia, [facility] via Peripheral IV. Ordered by Hanscy. Guillermina Reason: As per physicians 16:45:00 verbal order. 1 g VANCOMYCIN DRIP given in lab by Anesthesia, [facility] via Peripheral IV. Ordered by Gabe Sarmiento Reason: As per 16:45:37 physicians verbal order. First Sponge And Instrument Count Done by Konstantin Rizo, RT(R). 16:47:31 Hypo's: 4, Sponges: 20, Bovie/scratch: 2 Sutures: 10, Blades: 1, Instruments: 26, Syveck Patches: 0 16:58:27 Reference ECG taken 16:59:10 MD arrived. Time Out. Correct patient, procedure, procedure equipment, site and side verified with physicia n present. Time 17:01:00 concurred by MD, individual staff and [facility]. Time Out #2 - Consents verified, patient in correct position, all results are labled and displa yed, safety precautions 17:01:18 taken, antibiotics administered. Time out concurred by MD, individual staff and [facility] in procedu re 17:01:32 Case Start 17:01:33 50 mL 2% XYLOCAINE given in lab by Niok Sarmiento in Left upper chest via Subcutaneous. 17:03:34 Vascular access was obtained in the Subclav. Vein (Lft. 17:03:35 Wire inserted 17:03:58 Vascular access was obtained in the Subclav. Vein (Lft. 17:03:59 Wire inserted 17:04:23 Surgical Incision Made. 17:04:28 A pocket was created at the L Upper Chest. 17:06:49 A LEAD, TENDRIL ACTIVE FIXATION BIPOLAR 58 was inserted and positioned in the RV. 17:06:59 Lead placement verified under fluoroscopy 17:07:51 The RV lead impedance and threshold being tested. 17:08:00 The RV lead was sutured to the fascia. 17:08:59 A LEAD, TENDRIL ACTIVE FIXATION BIPOLAR 52CM was inserted and positioned in the RA. 17:09:24 Lead placement verified under fluoroscopy 17:16:55 The Atrial lead impedance and threshold is being tested. 17:16:58 The Atrial lead was sutured to the fascia. 17:18:42 Pocket flushed with antibiotic solution 17:19:14 A PACEMAKER, ASSURITY DR RF MRI was connected and placed in the pocket. Second Sponge And Instrument Count Done by Konstantin Rizo RT(R). 17:22:39 Hypo's: 4, Sponges: 20, Bovie/scratch: 2 Sutures: 10, Blades: 1, Instruments: 26, Syveck Patches: 0 17:25:34 Implant Procedure was performed. 17:25:40 A PPM Implant . (Dual) 17:28:27 The pocket was closed. First Sponge And Instrument Count Done by Konstantin Rizo RT(R). 17:29:37 Hypo's: 4, Sponges: 20, Bovie/scratch: 2 Sutures: 10, Blades: 1, Instruments: 26, Syveck Patches: 0 17:30:47 CICU called. Spoke to Ángela 17:30:55 Bedside Report will be given. 17:31:03 Case End 17:31:04 Steri-strips and a sterile dressing applied to site. Assessment: Final Case, HR=94 BPM, ZTWL=361/69 mmhg, Chest Pain=0, Edema=None, Color=Normal, S kin = Warm, Dry Lower Right Extremities: Color=Normal 17:31:14 Lower Left Extremities: Color=Normal Neurological: State=Lethargic, Ox3, CHAMPION Respiration: Resp=16 B/min, ZnJ1=743 %, O2=6 lpm 17:31:39 No case complications noted. 17:31:40 Sterile dressing applied to site 17:31:42 Cine recording checked. 17:31:46 Defibrillator and ground pads removed. Skin intact. 17:39:07 A sling was placed on the affected arm. 17:41:50 [facility] - Contrast Media Used In Study Contrast Total Opened (mL) Total Used (mL) Total Wasted (mL) Unspecified 0 0 0 End Study - Maximum Contrast Load Max Contrast Load (mL) 205.7 End Study - Radiation Exposure Fluoro Time (minutes) 1.8 End Study - Patient Disposition Complications Transferred To Interventional Outcome No Telemetry Bed successful
--- NOTE | 2017-09-22 17:36 | PD.CARD ---
DUAL PPM IMPLANTATION PROCEDURE DATE: Sep 22, 2017 DUAL PPM IMPLANTATION PROCEDURE: Dual chamber permanent pacemaker implantation. INDICATIONS FOR PROCEDURE: Ms. Mcdonald is a 57 -year-old female with complete AV dissociation who undergo pacer insertion. Patient is symptomatic and not on negative chronotropic medication for over 48 hrs. The risks, the nature and the benefit of the procedure were clearly stated to her . The risks include pneumothorax, cardiac perforation, stroke and even . She understood and agreed to proceed. PROCEDURE After written informed consent was obtained, the patient was transferred to the EP lab where she was prepped and draped in the usual sterile fashion. Conscious sedation was initiated and maintained throughout the procedure by the anesthesiologist. Once sedation was verified, the left infraclavicular area was with 2% Xylocaine. Using modified Seldinger technique, the left subclavian vein was cannulated on two occasions and two guidewires were advanced. Then, using a #11 blade scalpel, a 2 cm was made two fingerbreadths below the left clavicle. This incision was then taken down through the deep fascial layer using Bovie cautery and blunt dissection. Into the inferomedial direction, device pocket was dissected, then the wire was dissected into the pocket. A 2- 0 Vicryl suture was placed around the wire to prevent backbleeding. At this point, over the lateral wire, an 8-Vietnamese dilator and introducer was advanced. As the dilator and wire were removed, an active fixation right ventricular pacing and sensing lead was advanced. After adequate pacing and sensing thresholds were obtained, the lead was secured in the pocket using 2-0 Ethibond suture. Then, over the remaining wire, an 8-Vietnamese dilator and introducer was advanced. As the dilator and wire were removed, an active fixation right atrial pacing and sensing lead was advanced. After adequate pacing and sensing thresholds were obtained, the lead was secured into the pocket using 2-0 Ethibond suture. At that point, the pocket was copiously irrigated using antibiotic solution. This was connected to the generator and placed into the pocket. I did proceed with wound closure. The deep fascial layer was approximated using 2-0 Vicryl suture in a continuous fashion. The subcutaneous layer was approximated with 2-0 Vicryl suture in a continuous fashion. The subcuticular layer was approximated with 2-0 Vicryl suture in a continuous fashion. Dermabond adhesive was applied to the wound followed by sterile pressure dressing. There was no complication. The patient tolerated procedure. Blood loss minimal. IMPLANTED HARDWARE The permanent pacemaker is a [employer]. Model # [id number] serial number [id number]. The right atrial pacing and sensing lead is a [employer] model number [id number], serial number [id number]. The right ventricular pacing and sensing lead is a [employer] model number [id number] , serial number [id number]. THRESHOLDS The right atrial pacing threshold in the bipolar mode was 0.75 V @ 0.5 milliseconds, lead impedance 510 ohms and P-wave at 2.4 millivolts. The right ventricular pacing threshold in the bipolar mode was 1.0 V @ 0.5 milliseconds, lead impedance 630 ohms and R-wave at the 4.6 millivolts. SETTINGS The device was set in the DDD 60, upper limit 120 beats per minute. Hysteresis and mode switch are on. CONCLUSIONS: Successful permanent pacemaker implantation, COMMENT AND RECOMMENDATION The patient will be transferred to the telemetry unit. He will be observed. When stable, he can be discharged home. Niko Sarmiento MD Sep 22, 2017 17:36
[2017-09-22] MEDS ORDERED: ACETAMINOPHEN/CODEINE 300 MG/30 MG TAB PO PRN (17:45)
[2017-09-22] MEDS ORDERED: TEMAZEPAM 15 MG CAP PO PRN (17:45)
[2017-09-22] MEDS ORDERED: ONDANSETRON HCL 4 MG/2 ML VIAL IV PUSH PRN (17:45)
[2017-09-22] MEDS ORDERED: SODIUM CHLORIDE 0.9% FLUSH 10 ML FLUSH IV FLUSH PRN (17:45)
[2017-09-22] MEDS ORDERED: DO NOT ADM ANY ANTICOAGULANT DRUGS PRN (17:48)
--- NOTE | 2017-09-22 18:14 | PD.CONS ---
HPI Service Nephrology Consult Requested By Reason for Consult Chronic kidney disease stage IV Primary Care Physician Natan Booth MD History of Present Illness Patient is a 57-year-old female with history of diabetes, hypertension, chronic kidney disease stage IV who was having complete heart block she was taken off metoprolol however the heart rate and did not improved and she was admitted to have a pacemaker placed she underwent the procedure she is not recovering postanesthesia, I have seen her earlier this month and she has declining GFR at 22 and has creatinine of 2.6. Review of Systems Constitutional: COMPLAINS OF: Fatigue Respiratory: COMPLAINS OF: Shortness of breath Cardiovascular: COMPLAINS OF: Lower Extremity Edema Musculoskeletal: COMPLAINS OF: Joint pain Neurologic: COMPLAINS OF: Abnormal gait Past Family Social History Allergies: Coded Allergies: baclofen (Unverified Allergy, Severe, 09/21/17) Past Medical History Chronic kidney disease stage IV Diabetes Hypertension Edema Heart block Hyperlipidemia Morbid obesity Asthma Lupus Rheumatoid arthritis Past Surgical History Heart catheterization Breast reduction surgery Reported Medications Reported Meds & Active Scripts Active Reported Hydralazine (Hydralazine HCl) 100 Mg Tab 50 Mg PO TID Take with meals Metoprolol Tartrate 100 Mg Tab 100 Mg PO BID Ipratropium Neb (Ipratropium [place]) 0.5 Mg/2.5 Ml Amp 0.5 Mg NEB Q4HR NEB PRN Hydrocodone-Acetaminophen 10-325 mg Tab 1 Tab PO Q6H PRN Novolin R Inj (Insulin Human Regular) 1,000 Unit/10 Ml Vial 24 Units SQ AC DINNER Novolin R Inj (Insulin Human Regular) 1,000 Unit/10 Ml Vial 34 Units SQ AC LUNCH Novolin R Inj (Insulin Human Regular) 1,000 Unit/10 Ml Vial 24 Units SQ AC BREAKFAST Flonase Nasal [place] (Fluticasone Nasal [place]) 50 Mcg/Act [place] 1 Spr EACH NARE BID PRN Ergocalciferol 50,000 Unit Cap 50,000 Units PO Q7D ON FRIDAYS Ventolin Hfa 18 GM Inh (Albuterol Sulfate) 90 Mcg/Act Aer 2 Puff INH Q4-6H PRN Simvastatin 80 Mg Tab 80 Mg PO HS Procrit Inj (Epoetin Delta) 40,000 Unit/Ml Inj 40,000 Units SQ EVERY 2 WEEKS Omeprazole 20 Mg Tab 20 Mg PO DAILY Novolin N Inj (Insulin Human NPH) 100 Unit/Ml Inj 60 Unit SQ HS Losartan (Losartan Potassium) 100 Mg Tab 100 Mg PO DAILY Leflunomide 20 Mg Tab 20 Mg PO DAILY Hydroxychloroquine (Hydroxychloroquine Sulfate) 200 Mg Tab 200 Mg PO BID Takw with food Gabapentin 300 Mg Cap 300 Mg PO BID 1 IN AM AND 2 IN PM Furosemide 40 Mg Tab 40 Mg PO DAILY Flovent Hfa 12 GM Inh (Fluticasone Propionate) 110 Mcg/Act Inh 2 Puff INH BID PRN Calcitriol 0.5 Mcg Cap 0.5 Mcg PO DAILY Albuterol Neb (Albuterol Sulfate) 2.5 Mg/3 Ml Neb 2.5 Mg NEB Q4HR NEB PRN Afeditab CR (Nifedipine) 60 Mg Tab 60 Mg PO DAILY IN THE MORNING Afeditab CR (Nifedipine) 30 Mg Tab 30 Mg PO HS PRN Active Ordered Medications Current Medications Medications (Trade) Dose Ordered Sig/Ubaldo Route Start Time Stop Time Status Last Admin (NS Flush) 2 ml UNSCH PRN IV FLUSH 09/21/17 19:00 (NS Flush) 2 ml BID IV FLUSH 09/21/17 21:00 09/22/17 09:00 (Tylenol) 650 mg Q4H PRN PO 09/21/17 19:00 (Zofran Inj) 4 mg Q6H PRN IVP 09/21/17 19:00 (Narcan Inj) 0.4 mg UNSCH PRN IV PUSH 09/21/17 19:00 (Ro-Colace) 1 tab BID PO 09/21/17 21:00 09/21/17 21:26 (Milk Of Magnesia Liq) 30 ml Q12H PRN PO 09/21/17 19:00 (Senokot) 17.2 mg Q12H PRN PO 09/21/17 19:00 (Dulcolax Supp) 10 mg DAILY PRN RECTAL 09/21/17 19:00 (Lactulose Liq) 30 ml DAILY PRN PO 09/21/17 19:00 (D50w (Vial) Inj) 50 ml UNSCH PRN IV PUSH 09/21/17 19:00 09/21/17 19:18 (Glucagon Inj) 1 mg UNSCH PRN OTHER 09/21/17 19:00 (NovoLOG SUPPLEMENTAL SCALE) 1 ACHS SLIDING SCALE SQ 09/21/17 21:00 (Ferrous Sulfate) 325 mg BID PO 09/22/17 21:00 (Tessalon) 100 mg TID PRN PO 09/22/17 13:00 (Rocaltrol) 0.5 mcg DAILY PO 09/23/17 09:00 (Flovent Hfa 110 Mcg Inh) 2 puff BID INH 09/22/17 15:00 (Apresoline) 50 mg TID PO 09/22/17 14:00 09/22/17 14:35 (Plaquenil) 200 mg BID PO 09/22/17 21:00 (Atrovent Neb) 0.5 mg Q4HR NEB PRN NEB 09/22/17 13:00 Patient Own Medication PT OWN MED: LEFLUNOM... DAILY PO 09/23/17 09:00 Future Hold (Protonix) 20 mg DAILY PO 09/23/17 09:00 Cefazolin Sodium/ Dextrose 50 ml @ 100 mls/hr Q8H IV 09/23/17 01:00 09/23/17 17:29 (Restoril) 15 mg HS PRN PO 09/22/17 17:45 (Zofran Inj) 4 mg Q4H PRN IV PUSH 09/22/17 17:45 (Tylenol-Codeine #3) 1 tab Q4H PRN PO 09/22/17 17:45 (Tylenol-Codeine #3) 2 tab Q4H PRN PO 09/22/17 17:45 (NS Flush) 2 ml BID IV FLUSH 09/22/17 21:00 (NS Flush) 2 ml UNSCH PRN IV FLUSH 09/22/17 17:45 Family History Noncontributory Social History Denies smoking or alcohol use Physical Exam Vital Signs Vital Signs Date Time Temp Pulse Resp B/P (MAP) Pulse Ox O2 Delivery O2 Flow Rate FiO2 09/22/17 15:00 39 09/22/17 14:00 36 09/22/17 13:00 38 09/22/17 12:01 38 09/22/17 11:30 98.3 40 20 154/70 (98) 99 09/22/17 11:00 38 09/22/17 10:00 38 09/22/17 09:00 38 09/22/17 08:45 98.0 40 18 158/82 (107) 100 09/22/17 08:00 38 09/22/17 07:00 36 09/22/17 06:00 38 09/22/17 05:00 36 09/22/17 04:02 97.5 37 18 137/67 (90) 98 09/22/17 04:00 38 09/22/17 03:00 37 09/22/17 02:00 37 09/22/17 01:00 37 09/22/17 00:00 36 09/21/17 23:15 97.9 39 16 155/62 (93) 99 09/21/17 23:00 37 09/21/17 22:00 40 09/21/17 21:00 40 09/21/17 20:30 40 159/73 (101) 09/21/17 20:15 39 09/21/17 20:15 97.1 39 18 176/70 (105) 100 Physical Exam GENERAL: Well-nourished, well-developed patient. SKIN: Warm and dry. HEAD: Normocephalic. Facial edema EYES: No scleral icterus. No injection or drainage. NECK: Supple, trachea midline. No JVD or lymphadenopathy. CARDIOVASCULAR: Paced. Left chest Dressing RESPIRATORY: Breath sounds equal bilaterally. No accessory muscle use. GASTROINTESTINAL: Abdomen soft, non-tender, nondistended. EXTREMITIES: No cyanosis, 2-3+ edema. NEUROLOGICAL: Post-sedation anesthesia slow to wake Laboratory Laboratory Tests Test 09/21/17 19:45 09/22/17 00:55 09/22/17 07:38 Urine Color YELLOW Urine Turbidity HAZY Urine pH 6.0 Urine Specific Patrick 1.013 Urine Protein 100 Urine Glucose (UA) NEG Urine Ketones NEG Urine Occult Blood NEG Urine Nitrite NEG Urine Bilirubin NEG Urine Urobilinogen LESS THAN 2.0 Urine Leukocyte Esterase TRACE Urine RBC 1 Urine WBC 1 Urine Squamous Epithelial Cells 2 Urine Amorphous Sediment MOD Urine Bacteria FEW Urine Mucus FEW Microscopic Urinalysis Comment CATH-CULTURE IND Troponin I 0.02 0.05 White Blood Count 6.1 Red Blood Count 2.74 Hemoglobin 8.2 Hematocrit 25.4 Mean Corpuscular Volume 92.7 Mean Corpuscular Hemoglobin 29.9 Mean Corpuscular Hemoglobin Concent 32.2 Red Cell Distribution Width 15.0 Platelet Count 125 Mean Platelet Volume 8.9 Neutrophils (%) (Auto) 66.2 Lymphocytes (%) (Auto) 20.9 Monocytes (%) (Auto) 10.0 Eosinophils (%) (Auto) 2.4 Basophils (%) (Auto) 0.5 Neutrophils # (Auto) 4.1 Lymphocytes # (Auto) 1.3 Monocytes # (Auto) 0.6 Eosinophils # (Auto) 0.1 Basophils # (Auto) 0.0 CBC Comment DIFF FINAL Differential Comment Blood Urea Nitrogen 42 Creatinine 3.07 Random Glucose 125 Calcium Level 8.6 Sodium Level 139 Potassium Level 5.4 Chloride Level 111 Carbon Dioxide Level 23.5 Anion Gap 5 Estimat Glomerular Filtration Rate 19 Total Creatine Kinase 156 Date/Time Source Procedure Growth Status 09/21/17 19:45 Urine Catheterized Urine Urine Culture - Preliminary NO GROWTH IN 24 HOURS. Resulted Result Diagram: 09/22/17 0738 09/22/17 0738 Imaging Last Impressions Chest X-Ray 09/21/17 1403 Signed Impressions: Service Date/Time: August 14:25 - CONCLUSION: No acute disease. Elie Rogel Jr., MD Assessment and Plan Problem List: (1) Acute renal failure superimposed on stage 4 chronic kidney disease ICD Codes: N17.9 - Acute kidney failure, unspecified; N18.4 - Chronic kidney disease, stage 4 (severe) Status: Acute Plan: Patient has bradycardia arrhythmia which is corrected with pacemaker insertion patient is recovering postanesthesia heart rate is up but patient is high Continue to regulate blood pressure Monitor kidney functions She has prerenal component due to decreased cardiac output from complete heart block This will improve as pacemaker as corrected bradycardia Avoid nephrotoxic agents (2) Systolic CHF, chronic ICD Codes: I50.22 - Chronic systolic (congestive) heart failure Status: Chronic Plan: Cardiology is following (3) HTN (hypertension) ICD Codes: I10 - Essential (primary) hypertension Status: Acute Plan: Patient has been on hydralazine and nifedipine as an outpatient will resume nifedipine (4) Diabetes ICD Codes: E11.9 - Diabetes mellitus Status: Chronic Plan: Continue to monitor (5) Hyperkalemia ICD Codes: E87.5 - Hyperkalemia (6) Complete heart block ICD Codes: I44.2 - Atrioventricular block, complete Status: Acute Leonel Wilder MD Sep 22, 2017 18:14
[2017-09-22] MEDS ORDERED: NIFEdipine 30 MG SUSTAINED RELEASE TAB PO ONE (18:15)
--- NOTE | 2017-09-22 19:14 | RADRPT ---
EXAM DATE/TIME: 09/22/2017 18:19 [place] COMPARISON: No previous studies available for comparison. INDICATIONS : Evaluate for pneumothorax, post pacemaker placement. MEDICAL HISTORY : Chronic obstructive pulmonary disease. Congestive heart failure. Hypertension. Sleep apnea, diabe issa, anemia SURGICAL HISTORY : Cardiac catherization, bilateral breast biopsy. ENCOUNTER: Initial ACUITY: 1 day PAIN SCORE: Non-responsive. LOCATION: Bilateral chest FINDINGS: A single view of the chest demonstrates the lungs to be symmetrically aerated without evidence of mas s, infiltrate or effusion. The cardiomediastinal contours are unremarkable except mild cardiomegaly. Pacer leads right atrium and right ventricle. Osseous structures are intact. CONCLUSION: 1. No acute findings. No pneumothorax. Pacer leads overlie right atrium and right ventricle. Franky Fregoso MD on September 22, 2017 at 19:11 Board Certified Radiologist. This report was verified electronically.
[2017-09-22] MEDS: ACETAMINOPHEN/CODEINE 300 MG/30 MG TAB PO PRN (20:12)
[2017-09-22] MEDS: HYDROXYCHLOROQUINE SULFATE 200 MG TAB PO SCH (22:19)
[2017-09-22] MEDS: FERROUS SULFATE 325 MG (65 MG ELEMENTAL IRON) TAB PO SCH (22:19)
[2017-09-23] VITALS (29 sets, daily range): BP systolic 165–198; BP diastolic 67–88; PULSE 60–100; RESP 18; TEMP 97.5–98.7; O2SAT 95–99
[2017-09-23] MEDS ORDERED: hydrALAZINE HCL 20 MG/ML VIAL IV PUSH ONE (00:15)
[2017-09-23] MEDS: ceFAZolin 2 GM PREMIX 50 ML IV SCH ×3 (00:57→15:33)
[2017-09-23] MEDS: ACETAMINOPHEN/CODEINE 300 MG/30 MG TAB PO PRN ×4 (01:05→16:39)
[2017-09-23] MEDS ORDERED: cloNIDine HCL 0.1 MG TAB PO ONE (02:45)
[2017-09-23] MEDS: INSULIN ASPART SUPPLEMENTAL SCALE SQ SCH ×4 (08:00→21:04)
[2017-09-23] MEDS: PANTOPRAZOLE SOD 20 MG DELAYED RELEASE TAB PO SCH (08:02)
[2017-09-23] MEDS: FERROUS SULFATE 325 MG (65 MG ELEMENTAL IRON) TAB PO SCH ×2 (08:03→21:03)
[2017-09-23] MEDS: HYDROXYCHLOROQUINE SULFATE 200 MG TAB PO SCH ×2 (08:03→21:03)
[2017-09-23] MEDS: hydrALAZINE HCL 50 MG TAB PO SCH ×3 (08:03→16:39)
[2017-09-23] MEDS: FLUTICASONE PROPIONATE 110 MCG/ACT 12 GM INHALER INH SCH ×2 (08:03→21:05)
[2017-09-23] MEDS: DOCUSATE SODIUM 50 MG/SENNA 8.6 MG TAB PO SCH ×2 (08:03→21:03)
[2017-09-23] MEDS: SODIUM CHLORIDE 0.9% FLUSH 10 ML FLUSH IV FLUSH SCH ×4 (08:03→21:00)
[2017-09-23] MEDS: CALCITRIOL 0.25 MCG CAP PO SCH (08:03)
[2017-09-23 08:50] LABS: BICARBONATE 22.6 MEQ/L (21.0-32.0); POTASSIUM 4.9 MEQ/L (3.5-5.1)
[2017-09-23 08:57] LABS: HEMATOCRIT 23.9 % (35.0-46.0); MEAN CELL VOLUME 93.6 FL (80.0-100.0); MEAN CORPUSCULAR HEMOGLOBIN 30.5 PG (27.0-34.0); MEAN CORPUSCULAR HGB CONC 32.6 % (32.0-36.0); PLATELET COUNT 117 TH/MM3 (150-450); RED BLOOD COUNT 2.55 MIL/MM3 (4.00-5.30); RED CELL DISTRIBUTION WIDTH 15.2 % (11.6-17.2); WHITE BLOOD COUNT 7.4 TH/MM3 (4.0-11.0)
[2017-09-23 08:58] LABS: REVIEW FLAG FINAL
[2017-09-23] MEDS ORDERED: LEFLUNOMIDE 20 MG PO SCH (09:00)
[2017-09-23] MEDS ORDERED: NIFEdipine 30 MG SUSTAINED RELEASE TAB PO SCH (09:00)
--- NOTE | 2017-09-23 12:00 | HHI.PR ---
Subjective Remarks Feeling tired but better Objective Vital Signs Date Time Temp Pulse Resp B/P (MAP) Pulse Ox O2 Delivery O2 Flow Rate FiO2 09/23/17 11:00 92 09/23/17 10:00 94 09/23/17 09:00 92 09/23/17 08:52 20 09/23/17 08:00 97.9 96 18 175/82 (113) 97 09/23/17 08:00 93 09/23/17 07:00 96 09/23/17 06:00 96 09/23/17 06:00 175/81 (112) 09/23/17 05:00 96 09/23/17 04:40 165/79 (107) 09/23/17 04:00 96 09/23/17 03:00 99 09/23/17 03:00 98 18 184/81 (115) 99 09/23/17 02:27 181/67 (105) 09/23/17 02:00 98 09/23/17 01:35 181/81 (114) 09/23/17 01:00 96 09/23/17 01:00 94 175/76 (109) 09/23/17 00:00 92 09/22/17 23:50 96 18 183/96 (125) 100 09/22/17 23:00 95 09/22/17 22:00 96 09/22/17 22:00 96 18 175/84 (114) 96 09/22/17 21:00 92 09/22/17 20:45 98.7 92 18 186/88 (120) 98 09/22/17 20:00 92 09/22/17 19:54 209/64 (112) 09/22/17 19:53 209/64 (112) 09/22/17 19:00 75 09/22/17 18:30 98.3 60 16 160/72 (101) 98 Nasal Cannula 2 09/22/17 18:15 60 16 169/74 (105) 97 Nasal Cannula 2 09/22/17 18:00 60 16 175/76 (109) 96 Nasal Cannula 2 09/22/17 18:00 98.2 66 18 235/85 (135) 100 09/22/17 18:00 66 09/22/17 18:00 98.2 66 18 235/85 (135) 100 09/22/17 17:58 98.2 90 16 185/77 (113) 99 Nasal Cannula 3 09/22/17 15:00 39 09/22/17 14:00 36 09/22/17 13:00 38 09/22/17 12:01 38 I/O 09/22/17 09/22/17 09/22/17 09/23/17 09/23/17 09/23/17 07:00 15:00 23:00 07:00 15:00 23:00 Intake Total 240 ml 826 ml 0 ml 510 ml Output Total 800 ml 600 ml Balance 240 ml 826 ml -800 ml -90 ml Intake Oral 240 ml 0 ml 460 ml IV Total 826 ml 50 ml Output Urine Total 800 ml 600 ml # Voids 1 3 # Bowel Movements 1 2 0 Result Diagram: 09/23/1748 09/23/1748 Imaging Alert, fully oriented lungs: ventilated Heart: S1, S2 regular, no gallop Abdomen: soft, no mass, obese Ext: no edema Last Impressions Chest X-Ray 09/22/17 0000 Signed Impressions: Service Date/Time: Friday, September 22, 2017 18:19 - CONCLUSION: 1. No acute findings. No pneumothorax. Pacer leads overlie right atrium and right ventricle. Franky Fregoso MD Current Medications Medications (Trade) Dose Ordered Sig/Ubaldo Route Start Time Stop Time Status Last Admin (NS Flush) 2 ml UNSCH PRN IV FLUSH 09/21/17 19:00 (NS Flush) 2 ml BID IV FLUSH 09/21/17 21:00 09/23/17 08:03 (Tylenol) 650 mg Q4H PRN PO 09/21/17 19:00 (Zofran Inj) 4 mg Q6H PRN IVP 09/21/17 19:00 (Narcan Inj) 0.4 mg UNSCH PRN IV PUSH 09/21/17 19:00 (Ro-Colace) 1 tab BID PO 09/21/17 21:00 09/23/17 08:03 (Milk Of Magnesia Liq) 30 ml Q12H PRN PO 09/21/17 19:00 (Senokot) 17.2 mg Q12H PRN PO 09/21/17 19:00 (Dulcolax Supp) 10 mg DAILY PRN RECTAL 09/21/17 19:00 (Lactulose Liq) 30 ml DAILY PRN PO 09/21/17 19:00 (D50w (Vial) Inj) 50 ml UNSCH PRN IV PUSH 09/21/17 19:00 09/21/17 19:18 (Glucagon Inj) 1 mg UNSCH PRN OTHER 09/21/17 19:00 (NovoLOG SUPPLEMENTAL SCALE) 1 ACHS SLIDING SCALE SQ 09/21/17 21:00 09/23/17 11:30 (Ferrous Sulfate) 325 mg BID PO 09/22/17 21:00 09/23/17 08:03 (Tessalon) 100 mg TID PRN PO 09/22/17 13:00 (Rocaltrol) 0.5 mcg DAILY PO 09/23/17 09:00 09/23/17 08:03 (Flovent Hfa 110 Mcg Inh) 2 puff BID INH 09/22/17 15:00 09/23/17 08:03 (Apresoline) 50 mg TID PO 09/22/17 14:00 09/23/17 11:31 (Plaquenil) 200 mg BID PO 09/22/17 21:00 09/23/17 08:03 (Atrovent Neb) 0.5 mg Q4HR NEB PRN NEB 09/22/17 13:00 Patient Own Medication PT OWN MED: LEFLUNOM... DAILY PO 09/23/17 09:00 Future Hold 09/23/17 08:04 (Protonix) 20 mg DAILY PO 09/23/17 09:00 09/23/17 08:02 Cefazolin Sodium/ Dextrose 50 ml @ 100 mls/hr Q8H IV 09/23/17 01:00 09/23/17 17:29 09/23/17 08:03 (Restoril) 15 mg HS PRN PO 09/22/17 17:45 (Zofran Inj) 4 mg Q4H PRN IV PUSH 09/22/17 17:45 (Tylenol-Codeine #3) 1 tab Q4H PRN PO 09/22/17 17:45 09/23/17 11:30 (Tylenol-Codeine #3) 2 tab Q4H PRN PO 09/22/17 17:45 (NS Flush) 2 ml BID IV FLUSH 09/22/17 21:00 (NS Flush) 2 ml UNSCH PRN IV FLUSH 09/22/17 17:45 (Procardia Xl) 30 mg DAILY PO 09/23/17 09:00 09/23/17 08:03 Miscellaneous Information ALL NURSING DEPARTME... UNSCH PRN .XX 09/22/17 17:48 09/23/17 17:47 Assessment and Plan Problem List: (1) Pacemaker ICD Codes: Z95.0 - Presence of cardiac pacemaker Plan: SP pacer insertion Clean surgical wound Device well functioning OK to when ok with the managing team I will be available on a PRN basis. (2) Syncope ICD Codes: R55 - Syncope and collapse Status: Acute Plan: No new episode reported (3) Complete heart block ICD Codes: I44.2 - Atrioventricular block, complete Status: Acute Plan: AV pacing today Niko Sarmiento MD Sep 23, 2017 12:00
[2017-09-23] MEDS ORDERED: SODIUM CHLOR 0.9% 250 ML INJ 250 ML IV ONE (13:00)
--- NOTE | 2017-09-23 13:47 | HHI.NPPN ---
Subjective History of Present Illness 57 yea old with DM,HTN, CKD Stage 4, with complete heart block s/p PPM Review of Systems General Constitutional: Fatigue Objective Data Data 09/23/17 09/24/17 19:00 07:00 Intake Total 50 ml Balance 50 ml IV Total 50 ml Vital Signs Date Time Temp Pulse Resp B/P (MAP) Pulse Ox O2 Delivery O2 Flow Rate FiO2 09/23/17 12:08 16 09/23/17 12:00 97.8 93 18 180/82 (114) 99 09/23/17 12:00 92 09/23/17 11:00 92 09/23/17 10:01 97 Nasal Cannula 2.00 09/23/17 10:00 94 09/23/17 09:00 92 09/23/17 08:00 97.9 96 18 175/82 (113) 97 09/23/17 08:00 93 09/23/17 07:00 96 09/23/17 06:00 96 09/23/17 06:00 175/81 (112) 09/23/17 05:00 96 09/23/17 04:40 165/79 (107) 09/23/17 04:00 96 09/23/17 03:00 99 09/23/17 03:00 98 18 184/81 (115) 99 09/23/17 02:27 181/67 (105) 09/23/17 02:00 98 09/23/17 01:35 181/81 (114) 09/23/17 01:00 96 09/23/17 01:00 94 175/76 (109) 09/23/17 00:00 92 09/22/17 23:50 96 18 183/96 (125) 100 09/22/17 23:00 95 09/22/17 22:00 96 09/22/17 22:00 96 18 175/84 (114) 96 09/22/17 21:00 92 09/22/17 20:45 98.7 92 18 186/88 (120) 98 09/22/17 20:00 92 09/22/17 19:54 209/64 (112) 09/22/17 19:53 209/64 (112) 09/22/17 19:00 75 09/22/17 18:30 98.3 60 16 160/72 (101) 98 Nasal Cannula 2 09/22/17 18:15 60 16 169/74 (105) 97 Nasal Cannula 2 09/22/17 18:00 60 16 175/76 (109) 96 Nasal Cannula 2 09/22/17 18:00 98.2 66 18 235/85 (135) 100 09/22/17 18:00 66 09/22/17 18:00 98.2 66 18 235/85 (135) 100 09/22/17 17:58 98.2 90 16 185/77 (113) 99 Nasal Cannula 3 09/22/17 15:00 39 09/22/17 14:00 36 -: 09/23/17 0648 09/23/17 0648 Physical Exam General Appearance: Well Developed, Well Nourished Neck Neck Exam: Neck Supple Pulmonary Resp Exam: Decreased Bases Cardiology CV Exam: Regular Gastrointestinal/Abdomen GI Exam: Soft, Bowel Sounds Present Extremeties Extremities Exam: Moderate Edema Assessment/Plan Problem List: (1) Acute renal failure superimposed on stage 4 chronic kidney disease ICD Codes: N17.9 - Acute kidney failure, unspecified; N18.4 - Chronic kidney disease, stage 4 (severe) Status: Acute Plan: Patient doing better s/p PPM Cr declined K better Monitor kidney functions Avoid nephrotoxic agents (2) Systolic CHF, chronic ICD Codes: I50.22 - Chronic systolic (congestive) heart failure Status: Chronic Plan: Cardiology is following (3) HTN (hypertension) ICD Codes: I10 - Essential (primary) hypertension Status: Acute Plan: Patient has been on hydralazine and nifedipine as an outpatient will resume nifedipine (4) Diabetes ICD Codes: E11.9 - Diabetes mellitus Status: Chronic Plan: Continue to monitor (5) Hyperkalemia ICD Codes: E87.5 - Hyperkalemia Plan: resolved (6) Complete heart block ICD Codes: I44.2 - Atrioventricular block, complete Status: Acute Plan: PPM inserted Leonel Wilder MD Sep 23, 2017 13:47
[2017-09-23] MEDS ORDERED: NIFEdipine 30 MG SUSTAINED RELEASE TAB PO ONE (15:00)
--- NOTE | 2017-09-23 15:11 | HHI.PR ---
Subjective Remarks Follow-up for complete heart block status post PPM implantation Patient stated that she feels very weak and fatigued. She stated that when she' s anemic she is always very weak. She stated that she is usually transfuse at this level. Otherwise denied any chest pain, shortness of breathing, palpitation. Unsure if she has any lightheadedness or dizziness because she is too weak to ambulate. Per from hospitalization patient was ambulating. Discussed with patient's nurse. No active bleeding. Objective Vitals Vital Signs Date Time Temp Pulse Resp B/P (MAP) Pulse Ox O2 Delivery O2 Flow Rate FiO2 09/23/17 12:08 16 09/23/17 12:00 97.8 93 18 180/82 (114) 99 09/23/17 12:00 92 09/23/17 11:00 92 09/23/17 10:01 97 Nasal Cannula 2.00 09/23/17 10:00 94 09/23/17 09:00 92 09/23/17 08:00 97.9 96 18 175/82 (113) 97 09/23/17 08:00 93 09/23/17 07:00 96 09/23/17 06:00 96 09/23/17 06:00 175/81 (112) 09/23/17 05:00 96 09/23/17 04:40 165/79 (107) 09/23/17 04:00 96 09/23/17 03:00 99 09/23/17 03:00 98 18 184/81 (115) 99 09/23/17 02:27 181/67 (105) 09/23/17 02:00 98 09/23/17 01:35 181/81 (114) 09/23/17 01:00 96 09/23/17 01:00 94 175/76 (109) 09/23/17 00:00 92 09/22/17 23:50 96 18 183/96 (125) 100 09/22/17 23:00 95 09/22/17 22:00 96 09/22/17 22:00 96 18 175/84 (114) 96 09/22/17 21:00 92 09/22/17 20:45 98.7 92 18 186/88 (120) 98 09/22/17 20:00 92 09/22/17 19:54 209/64 (112) 09/22/17 19:53 209/64 (112) 09/22/17 19:00 75 09/22/17 18:30 98.3 60 16 160/72 (101) 98 Nasal Cannula 2 09/22/17 18:15 60 16 169/74 (105) 97 Nasal Cannula 2 09/22/17 18:00 60 16 175/76 (109) 96 Nasal Cannula 2 09/22/17 18:00 98.2 66 18 235/85 (135) 100 09/22/17 18:00 66 09/22/17 18:00 98.2 66 18 235/85 (135) 100 09/22/17 17:58 98.2 90 16 185/77 (113) 99 Nasal Cannula 3 I/O 09/22/17 09/22/17 09/22/17 09/23/17 09/23/17 09/23/17 07:00 15:00 23:00 07:00 15:00 23:00 Intake Total 240 ml 826 ml 0 ml 510 ml 50 ml Output Total 800 ml 600 ml Balance 240 ml 826 ml -800 ml -90 ml 50 ml Intake Oral 240 ml 0 ml 460 ml IV Total 826 ml 50 ml 50 ml Output Urine Total 800 ml 600 ml # Voids 1 3 # Bowel Movements 1 2 0 Result Diagram: 09/23/17 0648 09/23/17 0648 Imaging Last Impressions Chest X-Ray 09/22/17 0000 Signed Impressions: Service Date/Time: Friday, September 22, 2017 18:19 - CONCLUSION: 1. No acute findings. No pneumothorax. Pacer leads overlie right atrium and right ventricle. Franky Fregoso MD Objective Remarks GENERAL: in NAD CARDIOVASCULAR: Regular rate and regular rhythm without murmurs, gallops, or rubs. RESPIRATORY: Breath sounds equal bilaterally. No accessory muscle use. GASTROINTESTINAL: Abdomen soft, non-tender, nondistended. MUSCULOSKELETAL: No cyanosis, or edema. BACK: Nontender without obvious deformity. No CVA tenderness. Medications and IVs Current Medications Sodium Chloride 1,000 ml @ 100 mls/hr Q10H IV Last administered on 09/22/17t 03:28; Start 09/21/17 at 14:15; Stop 09/22/17 at 10:38; Status DC Sodium Chloride (NS Flush) 2 ml UNSCH PRN IV FLUSH FLUSH AFTER USING IV ACCESS ; Start 09/21/17 at 19:00 Sodium Chloride (NS Flush) 2 ml BID IV FLUSH Last administered on 09/23/17 08 :03; Start 09/21/17 at 21:00 Acetaminophen (Tylenol) 650 mg Q4H PRN PO TEMP > 100.4; Start 09/21/17 at 19: 00 Ondansetron HCl (Zofran Inj) 4 mg Q6H PRN IVP NAUSEA OR VOMITING; Start at 19:00 Heparin Sodium (Porcine) (Heparin Inj) 5,000 units Q8H SQ Last administered on 09/22/17 03:29; Start 09/21/17 at 20:00; Stop 09/22/17 at 10:38; Status DC Naloxone HCl (Narcan Inj) 0.4 mg UNSCH PRN IV PUSH SEE LABEL COMMENTS; Start 09/21/17 at 19:00 Senna/Docusate Sodium (Ro-Colace) 1 tab BID PO Last administered on 08:03; Start 09/21/17 at 21:00 Magnesium Hydroxide (Milk Of Magnesia Liq) 30 ml Q12H PRN PO Mild constipation ; Start 09/21/17 at 19:00 Sennosides (Senokot) 17.2 mg Q12H PRN PO Moderate constipation; Start at 19:00 Bisacodyl (Dulcolax Supp) 10 mg DAILY PRN RECTAL SEVERE CONSITIPATION; Start 09/21/17 at 19:00 Lactulose (Lactulose Liq) 30 ml DAILY PRN PO SEVERE CONSITIPATION; Start 09/21 at 19:00 Dextrose (D50w (Vial) Inj) 50 ml UNSCH PRN IV PUSH HYPOGLYCEMIA-SEE COMMENTS Last administered on 09/21/17 19:18; Start 09/21/17 at 19:00 Glucagon (Glucagon Inj) 1 mg UNSCH PRN OTHER HYPOGLYCEMIA-SEE COMMENTS; Start 09/21/17 at 19:00 Insulin Aspart (NovoLOG SUPPLEMENTAL SCALE) 1 ACHS SLIDING SCALE SQ Last administered on 09/23/17 11:30; Start 09/21/17 at 21:00 Ferrous Sulfate (Ferrous Sulfate) 325 mg BID PO Last administered on 08:03; Start 09/22/17 at 21:00 Benzonatate (Tessalon) 100 mg TID PRN PO cough; Start 09/22/17 at 13:00 Sodium Polystyrene Sulfonate (Kayexalate Liq) 15 gm ONCE ONCE PO Last administered on 09/22/17 14:36; Start 09/22/17 at 13:45; Stop 09/22/17 at 13 :46; Status DC Calcitriol (Rocaltrol) 0.5 mcg DAILY PO Last administered on 09/23/17 08:03; Start 09/23/17 at 09:00 Fluticasone Propionate (Flovent Hfa 110 Mcg Inh) 2 puff BID INH Last administered on 09/23/17 08:03; Start 09/22/17 at 15:00 Hydralazine HCl (Apresoline) 50 mg TID PO Last administered on 09/23/17 11:31 ; Start 09/22/17 at 14:00 Acetaminophen/ Hydrocodone Bitart ([place] 10-325 Mg) 1 tab Q6H PRN PO PAIN; Start 09/22/17 at 13:00; Stop 09/22/17 at 17:39; Status DC Hydroxychloroquine Sulfate (Plaquenil) 200 mg BID PO Last administered on 09/23 08:03; Start 09/22/17 at 21:00 Ipratropium [place] (Atrovent Neb) 0.5 mg Q4HR NEB PRN NEB SHORTNESS OF BREATH ; Start 09/22/17 at 13:00 Patient Own Medication PT OWN MED: LEFLUNOM... DAILY PO Last administered on 08:04; Start 09/23/17 at 09:00; Status Future Hold Pantoprazole Sodium (Protonix) 20 mg DAILY PO Last administered on 09/23/17 08:02; Start 09/23/17 at 09:00 Sodium Chloride 250 ml @ 15 mls/hr ONCE ONCE IV ; Start 09/22/17 at 15:00; Stop 09/22/17 at 17:09; Status DC Ketamine HCl (Ketalar Inj) 500 mg STK-MED ONCE .ROUTE ; Start 09/22/17 at 15:48 ; Stop 09/22/17 at 15:49; Status DC Lidocaine HCl (Xylocaine 2% Inj) 50 ml STK-MED ONCE .ROUTE ; Start 09/22/17 at 16:21; Stop 09/22/17 at 16:22; Status DC Vancomycin HCl (Vancomycin Inj) 500 mg STK-MED ONCE .ROUTE Last administered on 09/22/17 16:21; Start 09/22/17 at 16:21; Stop 09/22/17 at 16:22; Status DC Vancomycin HCl (Vancomycin Inj) 1,000 mg STK-MED ONCE .ROUTE Last administered on 09/22/17 16:45; Start 09/22/17 at 16:22; Stop 09/22/17 at 16:23; Status DC Cefazolin Sodium (Ancef Inj) 2,000 mg STK-MED ONCE .ROUTE Last administered on 09/22/17 16:45; Start 09/22/17 at 16:22; Stop 09/22/17 at 16:23; Status DC Cefazolin Sodium/ Dextrose 50 ml @ 100 mls/hr Q8H IV Last administered on 08:03; Start 09/23/17 at 01:00; Stop 09/23/17 at 17:29 Temazepam (Restoril) 15 mg HS PRN PO SLEEP; Start 09/22/17 at 17:45 Ondansetron HCl (Zofran Inj) 4 mg Q4H PRN IV PUSH NAUSEA; Start 09/22/17 at 17 :45 Acetaminophen/ Codeine Phosphate (Tylenol-Codeine #3) 1 tab Q4H PRN PO PAIN SCALE 1 TO 5 Last administered on 09/23/17 11:30; Start 09/22/17 at 17:45 Acetaminophen/ Codeine Phosphate (Tylenol-Codeine #3) 2 tab Q4H PRN PO PAIN SCALE 6 TO 10; Start 09/22/17 at 17:45 Sodium Chloride (NS Flush) 2 ml BID IV FLUSH ; Start 09/22/17 at 21:00 Sodium Chloride (NS Flush) 2 ml UNSCH PRN IV FLUSH FLUSH AFTER USING IV ACCESS ; Start 09/22/17 at 17:45 Nifedipine (Procardia Xl) 30 mg ONCE ONCE PO Last administered on 09/22/17 18:35; Start 09/22/17 at 18:15; Stop 09/22/17 at 18:25; Status DC Nifedipine (Procardia Xl) 30 mg DAILY PO Last administered on 09/23/17 08:03 ; Start 09/23/17 at 09:00; Stop 09/23/17 at 15:00; Status DC Miscellaneous Information ALL NURSING DEPARTME... UNSCH PRN .XX SEE LABEL COMMENTS; Start 09/22/17 at 17:48; Stop 09/23/17 at 17:47 Hydralazine HCl (Apresoline Inj) 20 mg ONCE ONCE IV PUSH Last administered on 09/23/17 00:48; Start 09/23/17 at 00:15; Stop 09/23/17 at 00:16; Status DC Clonidine (Catapres) 0.1 mg ONCE ONCE PO Last administered on 09/23/17 02:56 ; Start 09/23/17 at 02:45; Stop 09/23/17 at 02:48; Status DC Sodium Chloride 250 ml @ 15 mls/hr ONCE ONCE IV Last administered on 13:00; Start 09/23/17 at 13:00; Stop 09/24/17 at 05:39 Nifedipine (Procardia Xl) 30 mg ONCE ONCE PO ; Start 09/23/17 at 15:00; Stop 09/23/17 at 15:01; Status UNV A/P Problem List: (1) Complete heart block ICD Code: I44.2 - Atrioventricular block, complete Status: Acute (2) Hyperkalemia ICD Code: E87.5 - Hyperkalemia (3) Rhabdomyolysis ICD Code: M62.82 - Rhabdomyolysis (4) Thrombocytopenia ICD Code: D69.6 - Thrombocytopenia, unspecified (5) Renal insufficiency ICD Code: N28.9 - Disorder of kidney and ureter, unspecified (6) Hypoglycemia ICD Code: E16.2 - Hypoglycemia, unspecified (7) Anemia ICD Code: D64.9 - Anemia, unspecified (8) HTN (hypertension) ICD Code: I10 - Essential (primary) hypertension Assessment and Plan Patient presented with bradycardia with dizziness/lightheadedness Complete Heart Block: - EKG in PCP office w/ complete heart block, repeat EKG here w/ same findings, HR 30-40's, +dizziness/lightheadedness. Follows w/ Dr. Goss, consult placed by ER physician. -Continue with pacing pads at bedside. Echo 08/30/16 w/ EF 45-50%. -Metoprolol discontinued. -Status post PPM implantation on 09/22/2017. Anemia, acute on chronic -Patient has no active bleeding. She follows up with Dr. Beltrán as outpatient. -Hemoccult today is 7.8 and patient is symptomatic with severe fatigue and weakness. Where transfuse with 1 packed red blood cells. f/u with posttransfusion H&H. Monitor clinically. Hyperkalemia: Mild. K+ 5.2. No hemolysis. -Continue to increase. Status post Kayexalate given. Resolved. Acute on chronic renal failure. -Creatinine 3.13, previously 2.25 on 06/29/17. -Most like a secondary to hypoperfusion from complete heart block. Improving. Creatinine now at 2.88. Almost back to her baseline. Thrombocytopenia: Chronic. - Platelets 139, previously 193 on 06/29/17, 94 on 05/04/17. No active bleeding, will monitor. Hypoglycemia: - h/o DM, hold Metformin and Insulin. Accu-Cheks, Hypoglycemic protocol. Monitor closely. HTN: - BP 150-160's -Patient was only on Procardia XL 30 mg daily. For home meds she was on 60 mg daily and 30 mg at night when necessary. Will resume home dosage. 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 Chronic cough -Most likely due to postnasal dripping. Will continue Flonase. -Continue Tessalon Perles when necessary. Chronic back pain -continue [place] DVT Prophylaxis: Heparin sq Discharge Planning Patient unable to ambulate without assistance secondary to severe fatigue. She would need to be transfused. PT also consulted but this is most likely secondary to anemia. Discussed with patient's nurse. Jaylin Valles MD Sep 23, 2017 15:11
[2017-09-23] MEDS: NIFEdipine 30 MG SUSTAINED RELEASE TAB PO SCH (21:03)
[2017-09-24] VITALS (29 sets, daily range): BP systolic 169–188; BP diastolic 78–92; PULSE 60–108; RESP 18–20; TEMP 98.2–98.8; O2SAT 96–100
[2017-09-24 06:37] LABS: HEMATOCRIT 28.9 % (35.0-46.0); MEAN CELL VOLUME 90.5 FL (80.0-100.0); PLATELET COUNT 131 TH/MM3 (150-450); RED BLOOD COUNT 3.19 MIL/MM3 (4.00-5.30); RED CELL DISTRIBUTION WIDTH 17.6 % (11.6-17.2); REVIEW FLAG FINAL; WHITE BLOOD COUNT 5.9 TH/MM3 (4.0-11.0)
[2017-09-24 06:50] LABS: BICARBONATE 21.9 MEQ/L (21.0-32.0); POTASSIUM 4.8 MEQ/L (3.5-5.1)
[2017-09-24] MEDS: INSULIN ASPART SUPPLEMENTAL SCALE SQ SCH ×4 (08:00→21:00)
[2017-09-24] MEDS: SODIUM CHLORIDE 0.9% FLUSH 10 ML FLUSH IV FLUSH SCH ×4 (09:00→21:43)
[2017-09-24] MEDS: DOCUSATE SODIUM 50 MG/SENNA 8.6 MG TAB PO SCH ×2 (09:00→20:40)
[2017-09-24] MEDS: HYDROXYCHLOROQUINE SULFATE 200 MG TAB PO SCH ×2 (09:19→21:41)
[2017-09-24] MEDS: hydrALAZINE HCL 50 MG TAB PO SCH (09:20)
[2017-09-24] MEDS: PANTOPRAZOLE SOD 20 MG DELAYED RELEASE TAB PO SCH (09:20)
[2017-09-24] MEDS: NIFEdipine 60 MG SUSTAINED RELEASE TAB PO SCH (09:20)
[2017-09-24] MEDS: CALCITRIOL 0.25 MCG CAP PO SCH (09:20)
[2017-09-24] MEDS: FLUTICASONE PROPIONATE 110 MCG/ACT 12 GM INHALER INH SCH (09:20)
[2017-09-24] MEDS: FERROUS SULFATE 325 MG (65 MG ELEMENTAL IRON) TAB PO SCH ×2 (09:20→20:40)
[2017-09-24] MEDS ORDERED: hydrALAZINE HCL 50 MG TAB PO ONE (11:00)
--- NOTE | 2017-09-24 13:12 | HHI.NPPN ---
Subjective History of Present Illness 57 yea old with DM,HTN, CKD Stage 4, with complete heart block s/p PPM Review of Systems General Constitutional: Fatigue Objective Data Data Vital Signs Date Time Temp Pulse Resp B/P (MAP) Pulse Ox O2 Delivery O2 Flow Rate FiO2 09/24/17 12:54 100 2.00 09/24/17 12:01 98.2 100 20 188/92 (124) 100 09/24/17 08:45 98.3 102 20 182/91 (121) 100 09/24/17 05:34 60 09/24/17 04:28 96 09/24/17 04:19 98.6 95 169/84 (112) 99 09/24/17 02:51 93 09/24/17 01:00 94 09/24/17 00:43 98.8 90 172/79 (110) 96 09/24/17 00:00 96 09/23/17 23:00 96 09/23/17 22:00 76 09/23/17 21:00 97 178/88 (118) 95 09/23/17 21:00 60 09/23/17 20:00 98 09/23/17 19:00 67 09/23/17 18:29 97.5 97 18 198/87 98 09/23/17 18:08 98.7 100 18 191/80 96 09/23/17 17:16 97 Nasal Cannula 2.00 09/23/17 17:11 16 09/23/17 16:00 98.7 94 18 178/80 (112) 97 09/23/17 16:00 93 09/23/17 15:00 96 09/23/17 14:00 94 -: 09/24/17 0530 09/24/17 0530 Physical Exam General Appearance: Well Developed, Well Nourished Neck Neck Exam: Neck Supple Pulmonary Resp Exam: Decreased Bases Cardiology CV Exam: Regular Gastrointestinal/Abdomen GI Exam: Soft, Bowel Sounds Present Extremeties Extremities Exam: Moderate Edema Assessment/Plan Problem List: (1) Acute renal failure superimposed on stage 4 chronic kidney disease ICD Codes: N17.9 - Acute kidney failure, unspecified; N18.4 - Chronic kidney disease, stage 4 (severe) Status: Acute Plan: Patient doing better s/p PPM Cr declined K better Monitor kidney functions Cr 2.72 K 4.8 BP high adjust medications Avoid nephrotoxic agents (2) Systolic CHF, chronic ICD Codes: I50.22 - Chronic systolic (congestive) heart failure Status: Chronic Plan: Cardiology is following (3) HTN (hypertension) ICD Codes: I10 - Essential (primary) hypertension Status: Acute Plan: Patient has been on hydralazine and nifedipine as an outpatient will resume nifedipine (4) Diabetes ICD Codes: E11.9 - Diabetes mellitus Status: Chronic Plan: Continue to monitor (5) Hyperkalemia ICD Codes: E87.5 - Hyperkalemia Plan: resolved (6) Complete heart block ICD Codes: I44.2 - Atrioventricular block, complete Status: Acute Plan: PPM inserted Leonel Wilder MD Sep 24, 2017 13:12
--- NOTE | 2017-09-24 13:56 | HHI.PR ---
Subjective Remarks Follow-up for acute on chronic renal failure, fatigue, hypertension and complete heart block. Patient stated she feels a lot better since transfusion. Deny chest pain, palpitation, shortness of breathing, lightheadedness or dizziness. She has no other complaints. Discussed the patient's nurse Ja. Objective Vitals Vital Signs Date Time Temp Pulse Resp B/P (MAP) Pulse Ox O2 Delivery O2 Flow Rate FiO2 09/24/17 12:54 100 2.00 09/24/17 12:01 98.2 100 20 188/92 (124) 100 09/24/17 08:45 98.3 102 20 182/91 (121) 100 09/24/17 05:34 60 09/24/17 04:28 96 09/24/17 04:19 98.6 95 169/84 (112) 99 09/24/17 02:51 93 09/24/17 01:00 94 09/24/17 00:43 98.8 90 172/79 (110) 96 09/24/17 00:00 96 09/23/17 23:00 96 09/23/17 22:00 76 09/23/17 21:00 97 178/88 (118) 95 09/23/17 21:00 60 09/23/17 20:00 98 09/23/17 19:00 67 09/23/17 18:29 97.5 97 18 198/87 98 09/23/17 18:08 98.7 100 18 191/80 96 09/23/17 17:16 97 Nasal Cannula 2.00 09/23/17 17:11 16 09/23/17 16:00 98.7 94 18 178/80 (112) 97 09/23/17 16:00 93 09/23/17 15:00 96 09/23/17 14:00 94 I/O 09/23/17 09/23/17 09/23/17 09/24/17 09/24/17 09/24/17 07:00 15:00 23:00 07:00 15:00 23:00 Intake Total 510 ml 50 ml 1185 ml 240 ml Output Total 600 ml 600 ml 600 ml Balance -90 ml 50 ml 585 ml -360 ml Intake Oral 460 ml 630 ml 240 ml IV Total 50 ml 50 ml 150 ml Packed Cells 400 ml Blood Product IV Normal Saline Flush 5 ml Output Urine Total 600 ml 600 ml 600 ml # Bowel Movements 0 0 Result Diagram: 09/24/1752909/24/17529 Objective Remarks GENERAL: in NAD CARDIOVASCULAR: Regular rate and regular rhythm without murmurs, gallops, or rubs. PPM in place. RESPIRATORY: Breath sounds equal bilaterally. No accessory muscle use. GASTROINTESTINAL: Abdomen soft, non-tender, nondistended. MUSCULOSKELETAL: No cyanosis, or edema. BACK: Nontender without obvious deformity. No CVA tenderness. Medications and IVs Current Medications Sodium Chloride 1,000 ml @ 100 mls/hr Q10H IV Last administered on 09/22/17 03:28; Start 09/21/17 at 14:15; Stop 09/22/17 at 10:38; Status DC Sodium Chloride (NS Flush) 2 ml UNSCH PRN IV FLUSH FLUSH AFTER USING IV ACCESS ; Start 09/21/17 at 19:00 Sodium Chloride (NS Flush) 2 ml BID IV FLUSH Last administered on 09/24/17 09 :00; Start 09/21/17 at 21:00 Acetaminophen (Tylenol) 650 mg Q4H PRN PO TEMP > 100.4; Start 09/21/17 at 19: 00 Ondansetron HCl (Zofran Inj) 4 mg Q6H PRN IVP NAUSEA OR VOMITING; Start at 19:00 Heparin Sodium (Porcine) (Heparin Inj) 5,000 units Q8H SQ Last administered on 09/22/17 03:29; Start 09/21/17 at 20:00; Stop 09/22/17 at 10:38; Status DC Naloxone HCl (Narcan Inj) 0.4 mg UNSCH PRN IV PUSH SEE LABEL COMMENTS; Start 09/21/17 at 19:00 Senna/Docusate Sodium (Ro-Colace) 1 tab BID PO Last administered on 21:03; Start 09/21/17 at 21:00 Magnesium Hydroxide (Milk Of Magnesia Liq) 30 ml Q12H PRN PO Mild constipation ; Start 09/21/17 at 19:00 Sennosides (Senokot) 17.2 mg Q12H PRN PO Moderate constipation; Start at 19:00 Bisacodyl (Dulcolax Supp) 10 mg DAILY PRN RECTAL SEVERE CONSITIPATION; Start 09/21/17 at 19:00 Lactulose (Lactulose Liq) 30 ml DAILY PRN PO SEVERE CONSITIPATION; Start 09/21 at 19:00 Dextrose (D50w (Vial) Inj) 50 ml UNSCH PRN IV PUSH HYPOGLYCEMIA-SEE COMMENTS Last administered on 09/21/17 19:18; Start 09/21/17 at 19:00 Glucagon (Glucagon Inj) 1 mg UNSCH PRN OTHER HYPOGLYCEMIA-SEE COMMENTS; Start 09/21/17 at 19:00 Insulin Aspart (NovoLOG SUPPLEMENTAL SCALE) 1 ACHS SLIDING SCALE SQ Last administered on 09/24/17 12:00; Start 09/21/17 at 21:00 Ferrous Sulfate (Ferrous Sulfate) 325 mg BID PO Last administered on 09:20; Start 09/22/17 at 21:00 Benzonatate (Tessalon) 100 mg TID PRN PO cough; Start 09/22/17 at 13:00 Sodium Polystyrene Sulfonate (Kayexalate Liq) 15 gm ONCE ONCE PO Last administered on 09/22/17 14:36; Start 09/22/17 at 13:45; Stop 09/22/17 at 13 :46; Status DC Calcitriol (Rocaltrol) 0.5 mcg DAILY PO Last administered on 09/24/17 09:20; Start 09/23/17 at 09:00 Fluticasone Propionate (Flovent Hfa 110 Mcg Inh) 2 puff BID INH Last administered on 09/24/17 09:20; Start 09/22/17 at 15:00 Hydralazine HCl (Apresoline) 50 mg TID PO Last administered on 09/24/17 09:20 ; Start 09/22/17 at 14:00; Stop 09/24/17 at 10:50; Status DC Acetaminophen/ Hydrocodone Bitart ([place] 10-325 Mg) 1 tab Q6H PRN PO PAIN; Start 09/22/17 at 13:00; Stop 09/22/17 at 17:39; Status DC Hydroxychloroquine Sulfate (Plaquenil) 200 mg BID PO Last administered on 09/24 09:19; Start 09/22/17 at 21:00 Ipratropium [place] (Atrovent Neb) 0.5 mg Q4HR NEB PRN NEB SHORTNESS OF BREATH ; Start 09/22/17 at 13:00 Patient Own Medication PT OWN MED: LEFLUNOM... DAILY PO Last administered on 08:04; Start 09/23/17 at 09:00; Status Future Hold Pantoprazole Sodium (Protonix) 20 mg DAILY PO Last administered on 09/24/17 09:20; Start 09/23/17 at 09:00 Sodium Chloride 250 ml @ 15 mls/hr ONCE ONCE IV ; Start 09/22/17 at 15:00; Stop 09/22/17 at 17:09; Status DC Ketamine HCl (Ketalar Inj) 500 mg STK-MED ONCE .ROUTE ; Start 09/22/17 at 15:48 ; Stop 09/22/17 at 15:49; Status DC Lidocaine HCl (Xylocaine 2% Inj) 50 ml STK-MED ONCE .ROUTE ; Start 09/22/17 at 16:21; Stop 09/22/17 at 16:22; Status DC Vancomycin HCl (Vancomycin Inj) 500 mg STK-MED ONCE .ROUTE Last administered on 09/22/17 16:21; Start 09/22/17 at 16:21; Stop 09/22/17 at 16:22; Status DC Vancomycin HCl (Vancomycin Inj) 1,000 mg STK-MED ONCE .ROUTE Last administered on 09/22/17 16:45; Start 09/22/17 at 16:22; Stop 09/22/17 at 16:23; Status DC Cefazolin Sodium (Ancef Inj) 2,000 mg STK-MED ONCE .ROUTE Last administered on 09/22/17 16:45; Start 09/22/17 at 16:22; Stop 09/22/17 at 16:23; Status DC Cefazolin Sodium/ Dextrose 50 ml @ 100 mls/hr Q8H IV Last administered on 15:33; Start 09/23/17 at 01:00; Stop 09/23/17 at 17:29; Status DC Temazepam (Restoril) 15 mg HS PRN PO SLEEP; Start 09/22/17 at 17:45 Ondansetron HCl (Zofran Inj) 4 mg Q4H PRN IV PUSH NAUSEA; Start 09/22/17 at 17 :45 Acetaminophen/ Codeine Phosphate (Tylenol-Codeine #3) 1 tab Q4H PRN PO PAIN SCALE 1 TO 5 Last administered on 09/23/17 16:39; Start 09/22/17 at 17:45 Acetaminophen/ Codeine Phosphate (Tylenol-Codeine #3) 2 tab Q4H PRN PO PAIN SCALE 6 TO 10 Last administered on 09/23/17 21:04; Start 09/22/17 at 17:45 Sodium Chloride (NS Flush) 2 ml BID IV FLUSH ; Start 09/22/17 at 21:00 Sodium Chloride (NS Flush) 2 ml UNSCH PRN IV FLUSH FLUSH AFTER USING IV ACCESS ; Start 09/22/17 at 17:45 Nifedipine (Procardia Xl) 30 mg ONCE ONCE PO Last administered on 09/22/17 18:35; Start 09/22/17 at 18:15; Stop 09/22/17 at 18:25; Status DC Nifedipine (Procardia Xl) 30 mg DAILY PO Last administered on 09/23/17 08:03 ; Start 09/23/17 at 09:00; Stop 09/23/17 at 15:00; Status DC Miscellaneous Information ALL NURSING DEPARTME... UNSCH PRN .XX SEE LABEL COMMENTS; Start 09/22/17 at 17:48; Stop 09/23/17 at 17:47; Status DC Hydralazine HCl (Apresoline Inj) 20 mg ONCE ONCE IV PUSH Last administered on 09/23/17 00:48; Start 09/23/17 at 00:15; Stop 09/23/17 at 00:16; Status DC Clonidine (Catapres) 0.1 mg ONCE ONCE PO Last administered on 09/23/17 02:56 ; Start 09/23/17 at 02:45; Stop 09/23/17 at 02:48; Status DC Sodium Chloride 250 ml @ 15 mls/hr ONCE ONCE IV Last administered on 13:00; Start 09/23/17 at 13:00; Stop 09/24/17 at 05:39; Status DC Nifedipine (Procardia Xl) 30 mg ONCE ONCE PO Last administered on 09/23/17 15:00; Start 09/23/17 at 15:00; Stop 09/23/17 at 15:07; Status DC Nifedipine (Procardia Xl) 60 mg DAILY PO Last administered on 09/24/17 09:20 ; Start 09/24/17 at 09:00 Nifedipine (Procardia Xl) 30 mg HS PO Last administered on 09/23/17 21:03; Start 09/23/17 at 21:00 Hydralazine HCl (Apresoline) 100 mg Q8HR PO Last administered on 09/24/17 14: 13; Start 09/24/17 at 14:00 Hydralazine HCl (Apresoline) 50 mg ONCE ONCE PO Last administered on 11:26; Start 09/24/17 at 11:00; Stop 09/24/17 at 11:01; Status DC Clonidine (Catapres) 0.1 mg Q8HR PO Last administered on 09/24/17 14:13; Start 09/24/17 at 14:00 A/P Problem List: (1) Complete heart block ICD Code: I44.2 - Atrioventricular block, complete Status: Acute (2) Hyperkalemia ICD Code: E87.5 - Hyperkalemia (3) Rhabdomyolysis ICD Code: M62.82 - Rhabdomyolysis (4) Thrombocytopenia ICD Code: D69.6 - Thrombocytopenia, unspecified (5) Renal insufficiency ICD Code: N28.9 - Disorder of kidney and ureter, unspecified (6) Hypoglycemia ICD Code: E16.2 - Hypoglycemia, unspecified (7) Anemia ICD Code: D64.9 - Anemia, unspecified (8) HTN (hypertension) ICD Code: I10 - Essential (primary) hypertension Assessment and Plan Patient presented with bradycardia with dizziness/lightheadedness Complete Heart Block: - EKG in PCP office w/ complete heart block, repeat EKG here w/ same findings, HR 30-40's, +dizziness/lightheadedness. Follows w/ Dr. Goss, consult placed by ER physician. -Continue with pacing pads at bedside. Echo 08/30/16 w/ EF 45-50%. -Metoprolol discontinued. -Status post PPM implantation on 09/22/2017. Anemia, acute on chronic -Patient has no active bleeding. She follows up with Dr. Beltrán as outpatient. -Patient transfused with 1 pack unit of red blood cells with appropriate posttransfusion hemoglobin. Hyperkalemia: Mild. K+ 5.2. No hemolysis. -Resolved. Status post Kayexalate given. Acute on chronic renal failure. -Creatinine 3.13, previously 2.25 on 06/29/17. -Most like a secondary to hypoperfusion from complete heart block. Improving. Creatinine now at 2.88. Almost back to her baseline. Thrombocytopenia: Chronic. - Platelets 139, previously 193 on 06/29/17, 94 on 05/04/17. No active bleeding, will monitor. Hypoglycemia: - h/o DM, hold Metformin and Insulin. Accu-Cheks, Hypoglycemic protocol. Monitor closely. HTN, uncontrolled - Blood pressure increased to 180s. Per fur cutter control blood pressure better. -Continue with Procardia XL 60 mg daily and 30 mg at night when necessary. Increase hydralazine and add clonidine. Patient also on ARB at home pending fur cutter recommendation on when to restart our. Chronic cough -Most likely due to postnasal dripping. Will continue Flonase. -Continue Tessalon Perles when necessary. Chronic back pain -continue [place] DVT Prophylaxis: Heparin sq Discharge Planning Clinical Nursing Coordinator wants better control blood pressure before discharge. Anticipate discharge tomorrow if blood pressures better control. Jaylin Valles MD Sep 24, 2017 13:55
[2017-09-24] MEDS: hydrALAZINE HCL 100 MG TAB PO SCH ×2 (14:13→21:42)
[2017-09-24] MEDS: cloNIDine HCL 0.1 MG TAB PO SCH ×2 (14:13→21:41)
[2017-09-24] MEDS: NIFEdipine 30 MG SUSTAINED RELEASE TAB PO SCH (20:40)
--- NOTE | 2017-09-24 21:00 | EKG ---
Date Performed: 09/23/2017 Time Performed: 05:10:02 PTAGE: 57 years EKG: Sinus rhythm Left axis deviation IV conduction defect Extensive infarct - age undetermined Abnormal ECG PREVIOUS TRACING : 09/22/2017 18.20 DOCTOR: Niko Sarmiento Interpretating Date/Time 09/24/2017 20:53:38
--- NOTE | 2017-09-24 21:09 | EKG ---
Date Performed: 09/22/2017 Time Performed: 18:20:02 PTAGE: 57 years EKG: ELECTRONIC ATRIAL PACEMAKER ELECTRONIC VENTRICULAR PACEMAKER ABNORMAL RHYTHM ECG PREVIOUS TRACING : 09/21/2017 14.15 DOCTOR: Niko Sarmiento Interpretating Date/Time 09/24/2017 21:00:19
[2017-09-25] VITALS (18 sets, daily range): BP systolic 150–195; BP diastolic 63–95; PULSE 70–97; RESP 16–20; TEMP 97.7–98.3; O2SAT 94–100
[2017-09-25] MEDS: FLUTICASONE PROPIONATE 110 MCG/ACT 12 GM INHALER INH SCH ×2 (00:12→08:36)
[2017-09-25] MEDS: ACETAMINOPHEN/CODEINE 300 MG/30 MG TAB PO PRN ×2 (00:39→10:29)
[2017-09-25 05:09] LABS: BICARBONATE 23.3 MEQ/L (21.0-32.0)
[2017-09-25 06:43] LABS: HEMATOCRIT 27.5 % (35.0-46.0); MEAN CELL VOLUME 89.9 FL (80.0-100.0); MEAN CORPUSCULAR HEMOGLOBIN 29.3 PG (27.0-34.0); MEAN CORPUSCULAR HGB CONC 32.6 % (32.0-36.0); PLATELET COUNT 128 TH/MM3 (150-450); RED BLOOD COUNT 3.06 MIL/MM3 (4.00-5.30); RED CELL DISTRIBUTION WIDTH 17.5 % (11.6-17.2); REVIEW FLAG FINAL; WHITE BLOOD COUNT 5.6 TH/MM3 (4.0-11.0)
[2017-09-25] MEDS: hydrALAZINE HCL 100 MG TAB PO SCH ×2 (06:56→13:20)
[2017-09-25] MEDS: cloNIDine HCL 0.1 MG TAB PO SCH ×2 (06:56→13:20)
[2017-09-25] MEDS: INSULIN ASPART SUPPLEMENTAL SCALE SQ SCH ×2 (08:00→12:00)
[2017-09-25] MEDS: FERROUS SULFATE 325 MG (65 MG ELEMENTAL IRON) TAB PO SCH (08:34)
[2017-09-25] MEDS: PANTOPRAZOLE SOD 20 MG DELAYED RELEASE TAB PO SCH (08:35)
[2017-09-25] MEDS: HYDROXYCHLOROQUINE SULFATE 200 MG TAB PO SCH (08:35)
[2017-09-25] MEDS: CALCITRIOL 0.25 MCG CAP PO SCH (08:35)
[2017-09-25] MEDS: NIFEdipine 60 MG SUSTAINED RELEASE TAB PO SCH (08:35)
[2017-09-25] MEDS: DOCUSATE SODIUM 50 MG/SENNA 8.6 MG TAB PO SCH (08:35)
[2017-09-25] MEDS: SODIUM CHLORIDE 0.9% FLUSH 10 ML FLUSH IV FLUSH SCH ×2 (08:36)
[2017-09-25] MEDS ORDERED: PROPOFOL 200 MG/20 ML AMP IV ONE (10:56)
[2017-09-25] MEDS ORDERED: GLYCOPYRROLATE 1 MG/5 ML SYRINGE IV PUSH ONE (10:56)
[2017-09-25] MEDS ORDERED: PHENYLEPH/NS 1000 MCG/10 ML SYR IV ONE (10:56)
[2017-09-25] MEDS ORDERED: SODIUM CHLORIDE 0.9% 20 ML VIAL IV ONE (10:56)
[2017-09-25] MEDS ORDERED: ePHEDrine/NS 25 MG/5 ML SYR IV ONE (10:56)
[2017-09-25] MEDS ORDERED: MIDAZOLAM HCL 2 MG/2 ML VIAL IV ONE (10:56)
[2017-09-25] MEDS ORDERED: CLON.1 PO (11:40)
[2017-09-25] MEDS ORDERED: FERR325T20 PO (11:40)
[2017-09-25] MEDS ORDERED: NOVONP2 SQ (11:40)
[2017-09-25] MEDS ORDERED: HYDR-3801 PO (11:40)
[2017-09-25] MEDS ORDERED: BENZ100 PO (11:40)
--- NOTE | 2017-09-25 11:44 | HHI.DCPOC ---
Discharge Care Plan Diagnosis: (1) Acute on chronic renal failure (2) CKD (chronic kidney disease) stage 3, GFR 30-59 ml/min (3) Complete heart block (4) Anemia (5) Hypoglycemia (6) Diabetes (7) Systolic CHF, chronic Goals to Promote Your Health * To prevent worsening of your condition and complications * To maintain your health at the optimal level Directions to Meet Your Goals Take your medications as prescribed Follow your dietary instruction Follow activity as directed Keep your appointments as scheduled Take your immunizations and boosters as scheduled If your symptoms worsen call your PCP, if no PCP go to Urgent Care Center or Emergency Room Smoking is Dangerous to Your Health. Avoid second hand smoke Call the 24-hour hour crisis hotline for domestic abuse at Jaylin Valles MD Sep 25, 2017 11:44
--- NOTE | 2017-09-25 11:44 | HHI.DS ---
Discharge Summary Admission Date Sep 21, 2017 at 18:48 Discharge Date: Sep 25, 2017 Admitting Diagnosis complete heart block (1) Complete heart block ICD Code: I44.2 - Atrioventricular block, complete Diagnosis: Principal Status: Acute (2) Hyperkalemia ICD Code: E87.5 - Hyperkalemia Diagnosis: Principal (3) Rhabdomyolysis ICD Code: M62.82 - Rhabdomyolysis Diagnosis: Principal (4) Thrombocytopenia ICD Code: D69.6 - Thrombocytopenia, unspecified Diagnosis: Secondary (5) Hypoglycemia ICD Code: E16.2 - Hypoglycemia, unspecified Diagnosis: Principal (6) Anemia ICD Code: D64.9 - Anemia, unspecified Diagnosis: Principal (7) HTN (hypertension) ICD Code: I10 - Essential (primary) hypertension Diagnosis: Secondary (8) Acute renal failure superimposed on stage 4 chronic kidney disease ICD Code: N17.9 - Acute kidney failure, unspecified; N18.4 - Chronic kidney disease, stage 4 (severe) Diagnosis: Principal Status: Acute (9) Diabetes ICD Code: E11.9 - Diabetes mellitus Diagnosis: Secondary Status: Chronic Procedures See hospital course. Brief History - From Admission This is a 57-year-old female with a PMH of HTN, Lupus, Rheumatoid Arthritis, CHF (Echo 08/30/16 w/ EF 45-50%), Hyperlipidemia and DM who was sent to the ER by her PCP for abnormal EKG. Pt states she had c/o dizziness and SOB starting earlier today, seen by PCP and had EKG done in office showing complete heart block. Dr. Goss contacted by PCP who recommended she come to ER. On arrival, BP 167/96, HR 41, O2 sat 98% on RA, Afebrile. CBC essentially at baseline. Hemoglobin 9.2, previous exam 0.4 06/29/17. Platelets 139, previously 94 on . K+ 5.2Creatinine 3.13, previous 2.25 on 06/29/17. CPK 309. Troponin negative. BNP 194. INR 1.0. CXR with no acute findings. Dr. Goss consulted by ER physician, recommended holding Metoprolol. CBC/BMP: 10/30/17 0618 09/25/17 0427 Significant Findings Laboratory Tests Test 09/23/17 06:48 09/24/17 05:30 09/25/17 04:27 09/25/17 06:18 Red Blood Count 2.55 MIL/MM3 (4.00-5.30) 3.19 MIL/MM3 (4.00-5.30) 3.06 MIL/MM3 (4.00-5.30) Hemoglobin 7.8 GM/DL (11.6-15.3) 9.2 GM/DL (11.6-15.3) 9.0 GM/DL (11.6-15.3) Hematocrit 23.9 % (35.0-46.0) 28.9 % (35.0-46.0) 27.5 % (35.0-46.0) Platelet Count 117 TH/MM3 (150-450) 131 TH/MM3 (150-450) 128 TH/MM3 (150-450) Blood Urea Nitrogen 40 MG/DL (7-18) 34 MG/DL (7-18) 31 MG/DL (7-18) Creatinine 2.88 MG/DL (0.50-1.00) 2.72 MG/DL (0.50-1.00) 2.51 MG/DL (0.50-1.00) Random Glucose 134 MG/DL (74-106) 120 MG/DL (74-106) 117 MG/DL (74-106) Chloride Level 110 MEQ/L (98-107) 109 MEQ/L (98-107) Estimat Glomerular Filtration Rate 20 ML/MIN (>89) 22 ML/MIN (>89) 24 ML/MIN (>89) Red Cell Distribution Width 17.6 % (11.6-17.2) 17.5 % (11.6-17.2) Imaging Last Impressions Chest X-Ray 09/22/17 0000 Signed Impressions: Service Date/Time: Friday, September 22, 2017 18:19 - CONCLUSION: 1. No acute findings. No pneumothorax. Pacer leads overlie right atrium and right ventricle. Franky Fregoso MD PE at Discharge GENERAL: in NAD CARDIOVASCULAR: Regular rate and regular rhythm without murmurs, gallops, or rubs. PPM in place. RESPIRATORY: Breath sounds equal bilaterally. No accessory muscle use. GASTROINTESTINAL: Abdomen soft, non-tender, nondistended. MUSCULOSKELETAL: No cyanosis, or edema. BACK: Nontender without obvious deformity. No CVA tenderness. Pt update on day of discharge Follow-up for status post PPM placement, hypertensive urgency, acute on chronic renal failure, and symptomatically anemia Patient states she feels a lot better. Denied any chest pain, shortness of breathing, palpitation, lightheadedness dizziness. She doesn't feel as fatigued and feels she has a lot more energy. Patient stated that she was walking in the hallway. Otherwise she has no complaints. Patient declined home health. Hospital Course Patient presented with bradycardia with dizziness/lightheadedness. EKG was done and her PCP office and she was found to have complete heart block. Dr. Goss, physics technical officer was consulted by ER physician which he recommended holding the metoprolol. Despite holding metoprolol she continues to have complete heart block and EP physician was consulted in which patient had a PPM implantation on 09/22 2017. Due to baseline anemia and along with surgery patient hemoglobin went to 7.8 in which she was symptomatic with severe fatigue. Patient was transfused with 1 pack unit of red blood cells in which symptoms improved drastically. Patient also had uncontrolled hypertension secondary to holding some of her medication due to complete heart block. Her medication regimen was adjusted based on her blood pressure. Due to complete heart block patient had acute on chronic renal failure. Due to complete heart block and is causing hypoperfusion patient had acute on chronic renal failure that improved throughout the hospital course. Blood pressure was better controlled and rodbuster did not want to restart losartan during hospital course. Patient told need to see rodbuster when to restart losartan. Patient also require a lot less insulin during her hospital course. Extensive education was done with patient regards to insulin use and blood sugars readings during the hospital course. patient was given a insulin sliding scale since she takes NovoLog. Her dose of Novolin was decreased drastically to 5 units twice a day since her blood sugars were relatively controlled on insulin sliding scale. Pt Condition on Discharge: Stable Discharge Disposition: Discharge Home Discharge Time: > 30 minutes Discharge Instructions DIET: Follow Instructions for: Heart Healthy Diet, Diabetic Diet Activities you can perform: See Additionl Instruction Other Activity Instructions: as directed by Processing Operator Follow up Referrals: Cardiology - 2 Weeks with Niko Sarmiento MD Nephrology - 1 Week PCP Follow-up - 1 Week New Medications: Benzonatate (Tessalon Perles) 100 Mg Cap 100 MG PO TID PRN for cough, #20 CAP 0 Refills Clonidine (Catapres) 0.1 Mg Tab 0.1 MG PO Q8HR for hypertension, #90 TAB 0 Refills Ferrous Sulfate (Ferosul) 325 Mg (65 Mg Iron) Tablet 325 MG PO BID for anemia, #60 MG 0 Refills Hydralazine (Hydralazine) 100 Mg Tab 100 MG PO Q8HR for hypertension, #90 TAB 0 Refills Take with meals Changed Medications: Insulin Human NPH Inj (Novolin N Inj) 100 Unit/Ml Inj 5 UNIT SQ BID for diabetes, #1 VIAL 0 Refills (Changed from: 60 UNIT; HS; Refills: ) Continued Medications: Albuterol 18 GM Inh (Ventolin Hfa 18 GM Inh) 90 Mcg/Act Aer 2 PUFF INH Q4-6H PRN for SHORTNESS OF BREATH, #1 INHALER 0 Refills Albuterol Neb (Albuterol Neb) 2.5 Mg/3 Ml Neb 2.5 MG NEB Q4HR NEB PRN for SHORTNESS OF BREATH, #60 NEBULE 0 Refills Calcitriol (Calcitriol) 0.5 Mcg Cap 0.5 MCG PO DAILY for Calcium Supplement, #30 CAP 0 Refills Epoetin Inj (Procrit Inj) 40,000 Unit/Ml Inj 83872 UNITS SQ EVERY 2 WEEKS for Anemia, #12 VIAL 0 Refills Ergocalciferol (Ergocalciferol) 50,000 Unit Cap 86198 UNITS PO Q7D ON FRIDAYS for Nutritional Supplement, #30 CAP 0 Refills Fluticasone 12 GM Inh (Flovent Hfa 12 GM Inh) 110 Mcg/Act Inh 2 PUFF INH BID PRN for SHORTNESS OF BREATH, #1 INHALER 0 Refills Fluticasone Nasal [place] (Flonase Nasal [place]) 50 Mcg/Act [place] 1 SPR EACH NARE BID PRN for ALLERGIES, #1 BOTTLE 0 Refills Hydrocodone-Acetaminophen (Hydrocodone-Acetaminophen) 10-325 mg Tab 1 TAB PO Q6H PRN for PAIN, TAB 0 Refills Hydroxychloroquine (Hydroxychloroquine) 200 Mg Tab 200 MG PO BID, #60 TAB 0 Refills Takw with food Ipratropium Neb (Ipratropium Neb) 0.5 Mg/2.5 Ml Amp 0.5 MG NEB Q4HR NEB PRN for SHORTNESS OF BREATH, #180 NEBULE 0 Refills Leflunomide (Leflunomide) 20 Mg Tab 20 MG PO DAILY, TAB Nifedipine ER 24 HR (Afeditab CR) 30 Mg Tab 30 MG PO HS PRN for SBP>140 DBP>90, #30 TAB 0 Refills Nifedipine ER 24 HR (Afeditab CR) 60 Mg Tab 60 MG PO DAILY IN THE MORNING, #30 TAB 0 Refills Omeprazole (Omeprazole) 20 Mg Tab 20 MG PO DAILY, #30 TAB 0 Refills Simvastatin (Simvastatin) 80 Mg Tab 80 MG PO HS for Cholesterol Management, #30 TAB 0 Refills Discontinued Medications: Furosemide (Furosemide) 40 Mg Tab 40 MG PO DAILY, #30 TAB 0 Refills Gabapentin (Gabapentin) 300 Mg Cap 300 MG PO BID, #90 CAP 0 Refills 1 IN AM AND 2 IN PM Hydralazine (Hydralazine) 100 Mg Tab 50 MG PO TID for Blood Pressure Management, TAB 0 Refills Take with meals Insulin Human Regular Inj (Novolin R Inj) 1,000 Unit/10 Ml Vial 24 UNITS SQ AC BREAKFAST for DM, #1 INJECTION 0 Refills Insulin Human Regular Inj (Novolin R Inj) 1,000 Unit/10 Ml Vial 34 UNITS SQ AC LUNCH for DM, #1 INJECTION 0 Refills Insulin Human Regular Inj (Novolin R Inj) 1,000 Unit/10 Ml Vial 24 UNITS SQ AC DINNER for DM, #1 INJECTION 0 Refills Losartan (Losartan) 100 Mg Tab 100 MG PO DAILY for Blood Pressure Management, #30 TAB 0 Refills Metoprolol Tartrate (Metoprolol Tartrate) 100 Mg Tab 100 MG PO BID, TAB 0 Refills Jaylin Valles MD Sep 25, 2017 11:44
--- NOTE | 2017-09-25 14:07 | HHI.NPPN ---
Subjective History of Present Illness 57 yea old with DM,HTN, CKD Stage 4, with complete heart block s/p PPM Review of Systems General Constitutional: Fatigue Objective Data Data Vital Signs Date Time Temp Pulse Resp B/P (MAP) Pulse Ox O2 Delivery O2 Flow Rate FiO2 09/25/17 12:01 97.7 95 20 159/80 (106) 96 09/25/17 08:15 99 Room Air 09/25/17 06:56 159/80 (106) 09/25/17 05:00 90 09/25/17 04:00 Nasal Cannula 2.00 09/25/17 03:51 97.8 73 16 150/75 (100) 98 09/25/17 03:51 92 09/25/17 03:00 70 09/25/17 02:00 88 09/25/17 01:00 88 09/25/17 00:05 162/85 (110) 09/25/17 00:00 100 Nasal Cannula 2.00 09/25/17 00:00 89 09/25/17 00:00 98.3 89 16 195/95 (128) 100 09/24/17 23:00 90 09/24/17 23:00 Nasal Cannula 2.00 09/24/17 22:39 99 Nasal Cannula 2.00 09/24/17 22:00 Nasal Cannula 2.00 09/24/17 22:00 92 09/24/17 21:00 96 09/24/17 21:00 100 Nasal Cannula 2.00 09/24/17 20:00 98 09/24/17 20:00 Nasal Cannula 2.00 09/24/17 20:00 98.2 98 18 187/87 (120) 100 09/24/17 19:00 100 09/24/17 18:49 98 09/24/17 18:01 92 09/24/17 17:00 96 09/24/17 16:01 96 09/24/17 16:01 98.2 96 20 172/78 (109) 98 09/24/17 15:00 96 -: 09/25/17 0618 09/25/17 0427 Physical Exam General Appearance: Well Developed, Well Nourished Neck Neck Exam: Neck Supple Pulmonary Resp Exam: Decreased Bases Cardiology CV Exam: Regular Gastrointestinal/Abdomen GI Exam: Soft, Bowel Sounds Present Extremeties Extremities Exam: Moderate Edema Assessment/Plan Problem List: (1) Acute renal failure superimposed on stage 4 chronic kidney disease ICD Codes: N17.9 - Acute kidney failure, unspecified; N18.4 - Chronic kidney disease, stage 4 (severe) Status: Acute Plan: Patient doing better s/p PPM Cr declined K better Monitor kidney functions Cr 2. 51 K 5 BP better Avoid nephrotoxic agents (2) Systolic CHF, chronic ICD Codes: I50.22 - Chronic systolic (congestive) heart failure Status: Chronic Plan: Cardiology is following (3) HTN (hypertension) ICD Codes: I10 - Essential (primary) hypertension Status: Acute Plan: Patient has been on hydralazine and nifedipine as an outpatient will resume nifedipine (4) Diabetes ICD Codes: E11.9 - Diabetes mellitus Status: Chronic Plan: Continue to monitor (5) Hyperkalemia ICD Codes: E87.5 - Hyperkalemia Plan: resolved (6) Complete heart block ICD Codes: I44.2 - Atrioventricular block, complete Status: Acute Plan: PPM inserted Leonel Wilder MD Sep 25, 2017 14:07
== END 2017-09-25 15:55 | disposition home or self-care (01) | DRG 243 ==
LOC: NEPC 13:36 → NEDA 18:48 → HCIN 20:24
PROVIDERS: ADMIT Family Medicine; ATTEND Family Medicine
PROC: 02H63JZ Insertion of Pacemaker Lead into Right Atrium, Percutaneous Approach (ICD-10-PCS; 2017-09-22)
PROC: 02HK3JZ Insertion of Pacemaker Lead into Right Ventricle, Percutaneous Approach (ICD-10-PCS; 2017-09-22)
PROC: 0JH606Z Insertion of Pacemaker, Dual Chamber into Chest Subcutaneous Tissue and Fascia, Open Approach (ICD-10-PCS; principal; 2017-09-22 14:30)
PROC: 30233N1 Transfusion of Nonautologous Red Blood Cells into Peripheral Vein, Percutaneous Approach (ICD-10-PCS; 2017-09-23)
DX: I44.2 Atrioventricular block, complete (principal); N17.9 Acute kidney failure, unspecified; N18.4 Chronic kidney disease, stage 4 (severe); I42.9 Cardiomyopathy, unspecified; D69.6 Thrombocytopenia, unspecified; I13.0 Hypertensive heart and chronic kidney disease with heart failure and stage 1 through stage 4 chronic kidney disease, or unspecified chronic kidney disease; I50.22 Chronic systolic (congestive) heart failure; E11.22 Type 2 diabetes mellitus with diabetic chronic kidney disease; Z68.41 Body mass index [BMI] 40.0-44.9, adult; M32.9 Systemic lupus erythematosus, unspecified; E11.649 Type 2 diabetes mellitus with hypoglycemia without coma; E87.5 Hyperkalemia; E78.5 Hyperlipidemia, unspecified; I73.9 Peripheral vascular disease, unspecified; M06.9 Rheumatoid arthritis, unspecified; K21.9 Gastro-esophageal reflux disease without esophagitis; J44.9 Chronic obstructive pulmonary disease, unspecified; D64.9 Anemia, unspecified; G89.29 Other chronic pain; Z79.84 Long term (current) use of oral hypoglycemic drugs; E66.01 Morbid (severe) obesity due to excess calories
CPT/HCPCS: 33208; 36430; 71010; 76937; 80048; 80053; 81001; 82550; 82552; 82948; 83735; 83880; 84100; 84443; 84484; 85025; 85027; 85610; 85730; 86850; 86900; 86901; 86920; 87086; 93005; 93306; 96360; 96361; C1785; C1898; J0360; J0690; J1644; J1815; J2250; J2370; J3370; J7030; J7050; P9016